=== PATIENT | female | born 1970 | race Caucasian/White ===

== ENCOUNTER → 2017-10-01 10:20 | Outpatient (CLI) | payer OTHER, SELFPAY | PROVIDERS: PCP Family Medicine; Visit Provider Nurse Practitioner Family | DX: M25.50 Pain in unspecified joint (principal) ==

== ENCOUNTER → 2017-10-04 09:53 | Outpatient (CLI) | payer OTHER, SELFPAY ==
[2017-10-04 11:13] LABS: Uric Acid 3.8 mg/dL (2.5-6.2)
[2017-10-06 16:03] LABS: Total Volume: 2900 mL
[2017-10-11 12:58] LABS: Oxalate 24 Hour Urine 39.1
== END ==
PROVIDERS: PCP Family Medicine; Visit Provider Nurse Practitioner Family
DX: M25.50 Pain in unspecified joint (principal)
CPT/HCPCS: 36415; 83945; 84550

== ENCOUNTER → 2017-11-30 15:44 | Outpatient (CLI) | payer OTHER, SELFPAY ==
--- NOTE | 2017-11-30 15:45 | DI.MRI.S_ITS ---
PROCEDURE: MR CERVICAL SPINE WO CON INDICATIONS: NECK PAIN TECHNIQUE: Noncontrast sagittal T1 spin echo and T2 fast spin echo, sagittal STIR, foraminal oblique sagittal T2 fast spin echo, and axial gradient echo or T2 fast spin echo through the cervical spine. COMPARISON: None. FINDINGS: Image quality: Excellent. Alignment and Curvature: Straightening of the normal cervical lordosis. Trace anterolisthesis of C3 on C4, and trace retrolisthesis of C6 on C7. Degenerative endplate spurring. Bone Marrow: Scattered degenerative endplate signal changes Spinal Cord: Visualized spinal cord has normal size and signal. No cerebellar tonsillar herniation. Paraspinous Soft Tissues: No paravertebral masses. Prevertebral soft tissues are normal in thickness. C2-C3: Normal appearance. C3-C4: Bilateral uncovertebral arthropathy and posterior intervening disc osteophyte complex, and bilateral facet disease. No definite canal stenosis. Mild bilateral foraminal narrowing. C4-C5: Bilateral uncovertebral arthropathy and posterior intervening disc osteophyte complex, and bilateral facet disease. Mild canal narrowing with near complete effacement of the anterior thecal sac. Moderate bilateral foraminal stenoses. C5-C6: Bilateral uncovertebral arthropathy and posterior intervening disc osteophyte complex, and bilateral facet disease. Mild canal narrowing. Mild left foraminal stenosis. Severe right foraminal stenosis. C6-C7: Bilateral uncovertebral arthropathy and posterior intervening disc osteophyte complex, and bilateral facet arthropathy. Moderate canal narrowing with effacement of the anterior and posterior sac. Severe left and moderate right foraminal narrowing. C7-T1: Bilateral facet disease. Mild canal stenosis. Moderate left and mild right foraminal narrowing. IMPRESSION: Multilevel cervical disc degeneration as detailed above, with moderate C6-C7 Canal narrowing. Diffuse bilateral foraminal stenoses as above, most pronounced at C4-C5 (bilateral), C5-C6 (right), C6-C7 (left greater than right), and C7-T1 (left). Dictated by: Herman Carson M.D. on 11/30/2017 at 16:40 Approved by: Herman Carson M.D. on 11/30/2017 at 16:48
== END ==
PROVIDERS: PCP Family Medicine; Visit Provider Nurse Practitioner Family
DX: M50.11 Cervical disc disorder with radiculopathy, high cervical region (principal); M48.02 Spinal stenosis, cervical region
CPT/HCPCS: 72141

== ENCOUNTER → 2017-12-20 09:43 | Outpatient (CLI) | payer OTHER, SELFPAY ==
--- NOTE | 2017-12-20 | DI.RAD.S_ITS ---
PROCEDURE: XR LUMBAR SPINE 2-3V INDICATIONS: HIP AND LOW BACK PAIN TECHNIQUE: 3 views of the lumbar spine were acquired. COMPARISON: [facility], CR, L-SPINE 2-3 VIEWS, 01/09/2013, 12:11. [facility], MR, L-SPINE WITHOUT CONTRAST, 02/21/2017, 8:28. FINDINGS: Bones: 5 [id number] vertebrae are present. Mild scoliosis. There is grade 1 anterolisthesis of L4 on L5. No vertebral body compression fractures. No suspicious bony lesions. There is degenerative disc disease in lumbar spine, moderate at L3-L4 and L4-L5, and mild at L2-L3. Moderate to severe facet arthropathy at L4-L5 and L5-S1. Soft tissues: Overlying bowel gas pattern is normal. No suspicious soft tissue calcifications. IMPRESSION: 1. Degenerative disc disease and facet arthropathy in lumbar spine. 2. Mild scoliosis. 3. Grade 1 anterolisthesis of L4 on L5 Dictated by: Yoel Sheppard M.D. on 12/20/2017 at 11:25 Approved by: Yoel Sheppard M.D. on 12/20/2017 at 11:28
--- NOTE | 2017-12-20 | DI.RAD.S_ITS ---
PROCEDURE: XR HIP W PEL IF DONE LT 2V INDICATIONS: LOW BACK PAIN TECHNIQUE: AP pelvis with lateral view(s) of the left hip(s). COMPARISON: None. FINDINGS: Bones: No fractures or dislocations. Pelvic ring appears intact. No suspicious bony lesions. There is mild joint space narrowing in the left hip consist with early joint degeneration. Soft tissues: The visualized bowel gas pattern is normal. No suspicious soft tissue calcifications. IMPRESSION: Mild left hip joint degeneration. Dictated by: Yoel Sheppard M.D. on 12/20/2017 at 11:24 Approved by: Yoel Sheppard M.D. on 12/20/2017 at 11:25
== END ==
PROVIDERS: PCP Family Medicine; Visit Provider Internal Medicine Rheumatology
DX: M51.36 Other intervertebral disc degeneration, lumbar region (principal); M16.12 Unilateral primary osteoarthritis, left hip; M54.5 Low back pain; M25.552 Pain in left hip; M47.816 Spondylosis without myelopathy or radiculopathy, lumbar region; M41.9 Scoliosis, unspecified; M43.16 Spondylolisthesis, lumbar region
CPT/HCPCS: 72100; 73502

== ENCOUNTER 2018-04-05 09:46 | Outpatient (CLI) | payer OTHER, SELFPAY ==
[2018-04-05] VITALS (8 sets, daily range): BP systolic 106–123; BP diastolic 70–86; PULSE 84–101; RESP 16–18; TEMP 36.2; O2SAT 93–99
--- NOTE | 2018-04-05 10:11 | P.PCN_ITS ---
Procedures Date/Time Date of procedure: 04/05/18 Time of procedure: 10:08 General Procedure description: PREOP DIAGNOSIS 1. FACET ARTHROPATHY 2. AXIAL LBP 3. MULTILEVEL DDD POST OP DIAGNOSIS 1. FACET ARTHROPATHY 2. AXIAL LBP 3. MULTILEVEL DDD PROCEDURES 1. FLUORSCOPICALLY GUIDED CONTRAST CONTROLLED FACET JOINT INJECTIONS BILATERAL L4/5, L5/S1 PHYSICIAN: Kwaku Victoria, DO INDICATIONS Ora is referred by Dr. Anderson for treatment of Axial LBP FINDINGS Multilevel Facet Arthropathy with Clinically significant axial LBP DESCRIPTION OF PROCEDURE Fluoroscopically guided, contrast-controlled bilateral L4/5, L5/S1 facet joint injections. Following denial of allergy and review of potential side effects and complications, including, but not necessarily limited to, infection, allergic reaction, local tissue breakdown, stroke, temporary or permanent nerve injury, paralysis, and possible , the patient indicated that the patient understood and agreed to proceed. An informed consent document was signed by the patient, witnessed by a nurse, and placed in the patient's chart. Additionally, other treatment options including medications, modalities, and physical therapy were reviewed with the patient. After review of previous anaesthesic history and IV conscious sedation the patient was deemed safe to proceed with todays procedure with IV conscious sedation as ASA class II designation. Safety time-out was performed to confirm patient ID, procedure to be performed and site of procedure. IV sedation was accomplished with a combination of 5mg was administered by the RN after DO order , titrated to patient comfort during the course of the procedure while the patient remained responsive to all verbal commands In the prone position, following sterile prep and drape of the lumbar region, the posterior aspect of the L4/5, L5/S1 facet joints were identified fluoroscopically. The skin was anesthetized via a 25-gauge 1.5-inch needle with 1% lidocaine solution into the corresponding facet joints. At this point, a 22-gauge 3.5-inch spinal needle was atraumatically introduced and advanced under fluoroscopic guidance into the corresponding facet joints. Following negative aspiration, injections of approximately 0.2-cc of Isovue 200 confirmed interarticular placement without vascular uptake. The identical procedure was then performed at the L4/5, L5/S1 facet joints on the left. Radiological data, including multiple fluoroscopic views of the lumbosacral spine, reveal a spinal needle at the L4/5, L5/S1 facet joints bilaterally. Subsequent views show flow of contrast material both superiorly and inferiorly within the joint space without vascular or intrathecal uptake. At this point, a total of 0.5 cc including a mixture of 0.25cc Marcaine and 0.25cc betamethasone was injected without complication into each of the corresponding facet joints. The patient tolerated the procedure well without signs or symptoms of complications prior to transfer to the recovery area continued monitoring without incident. The patient was then transferred to the recovery area where they were observed for an appropriate period of time after the injection. The patient reported a VAS score of 7 prior to the procedure and a post- procedure VAS of 0. Total Fluoroscopy Time: 20.3 seconds Total Conscious Sedation Time: 24min POST OP INSTRUCTIONS The patient was provided a Pain Log to continue to record their response to the target-specific procedure prior to follow-up visit with their referring physician. Additionally, specific post-injection care instructions and a contact number to our office were provided if concerns arise regarding possible complications associated with the procedure are suspected. Kwaku Victoria DO Complications: none
[2018-04-05] MEDS: MIDAZOLAM 5 MG/5 ML VIAL IV (10:21)
[2018-04-05] MEDS: BUPIVACAINE 0.5% (PF) VIAL 5 ML INJ (10:25)
[2018-04-05] MEDS: IOPAMIDOL 15 ML VIAL 3 ML INJ (10:26)
[2018-04-05] MEDS: LIDOCAINE 1% 20 ML INJ 10 ML INJ (10:26)
[2018-04-05] MEDS: BETAMETHASONE 30 MG/5 ML MDV 12 MG INJ (10:26)
--- NOTE | 2018-04-05 10:30 | PC.NURSE ---
assisting pt off table and transporting to post proc area. pt in stable condition
--- NOTE | 2018-04-05 10:36 | DI.RAD.S_ITS ---
PROCEDURE: PAIN L/SI FACET INJ/BLK 1STL INDICATIONS: SPONDYLOSIS FINDINGS: Fluoroscopic spot filming was performed to verify placement of spinal needles at the L4-L5 and L5-S1 level(s), as labeled on the films. Appropriate location(s) of the needle tip(s) was confirmed by injection of iodinated contrast. Dictated by: Herman Carson M.D. on 04/05/2018 at 11:30 Approved by: Herman Carson M.D. on 04/05/2018 at 11:35
--- NOTE | 2018-04-05 11:26 | PC.NURSE ---
Pt returned from post procedure awake and alert able to move from W/C to chair. Resumed monitoring from Lulu CAMPA.
== END 2018-04-05 11:21 ==
LOC: RAD 09:47
PROVIDERS: PCP Family Medicine; Visit Provider Physical Medicine & Rehabilitation
DX: M47.817 Spondylosis without myelopathy or radiculopathy, lumbosacral region (principal); M47.816 Spondylosis without myelopathy or radiculopathy, lumbar region; M54.5 Low back pain; M51.36 Other intervertebral disc degeneration, lumbar region; M51.37 Other intervertebral disc degeneration, lumbosacral region
CPT/HCPCS: 64493; 64494; 99152; J0702; J2250

== ENCOUNTER → 2018-04-07 14:53 | Outpatient (CLI) | payer OTHER, SELFPAY ==
[2018-04-09 20:14] LABS: Total Volume: 3200 mL
== END ==
PROVIDERS: PCP Family Medicine; Visit Provider Family Medicine
DX: E72.53 Primary hyperoxaluria (principal)
CPT/HCPCS: 83945

== ENCOUNTER 2018-06-13 09:03 | Outpatient (CLI) | payer OTHER, SELFPAY ==
[2018-06-13] VITALS (8 sets, daily range): BP systolic 104–130; BP diastolic 49–76; PULSE 69–86; RESP 16–18; TEMP 36.7; O2SAT 96–100
--- NOTE | 2018-06-13 09:04 | DI.RAD.S_ITS ---
PROCEDURE: PAIN L/S FACET INJ/BLK 1ST MICHEL COMPARISON: None. INDICATIONS: SPONDYLOSIS FINDINGS: Intraoperative fluoroscopic guidance provided for bilateral L4, L5, and S1 medial nerve branch blocks. Needle seen at the appropriate locations bilaterally, confirmed with injection of small amounts of contrast. IMPRESSION: Intraoperative fluoroscopy provided for bilateral L4-S1 medial nerve branch blocks. Dictated by: Velma Chávez M.D. on 06/13/2018 at 12:50 Approved by: Velma Chávez M.D. on 06/13/2018 at 12:50
[2018-06-13] MEDS: MIDAZOLAM 5 MG/5 ML VIAL IV (09:48)
[2018-06-13] MEDS: fentaNYL 100 MCG/2 ML INJ 50 MCG IV (09:49)
[2018-06-13] MEDS: BETAMETHASONE 30 MG/5 ML MDV 12 MG INJ (09:58)
[2018-06-13] MEDS: IOPAMIDOL 15 ML VIAL 3 ML INJ (09:58)
[2018-06-13] MEDS: BUPIVACAINE 0.5% (PF) VIAL 2 ML INJ (09:59)
[2018-06-13] MEDS: LIDOCAINE 1% 20 ML INJ 10 ML INJ (09:59)
--- NOTE | 2018-06-13 10:03 | PC.NURSE ---
ASSISTING PT OFF TABLE AND TRANSPORTING TO POST PROC AREA IN STABLE CONDITION
--- NOTE | 2018-06-13 10:08 | PM.PROC.1 ---
Procedures Date/Time Date of procedure: 06/13/18 Time of procedure: 10:08 General Procedure description: Procedure description: 1. FACET ARTHROPATHY PROCEDURES: 1. BILATERAL- L4, L5 and S1 MB BLOCKS PHYSICIAN: Kwaku Victoria DO INDICATIONS Ora is referred by Dr. Anderson for treatment of Bilateral Axial LBP. DESCRIPTION OF PROCEDURE Fluoroscopically guided, contrast-controlled bilateral L4, L5 and S1 medial branch blocks with 0.5cc of 0.5% Marcaine. Following denial of allergy and review of potential side effects and complications, including, but not necessarily limited to, infection, allergic reaction, local tissue breakdown, nerve injury, paralysis, stroke and possible , the patient indicated that the patient understood and agreed to proceed. An informed consent document was signed by the patient, witnessed by a nurse, and placed in the patient's chart. After review of previous anaesthesic history and IV conscious sedation the patient was deemed safe to proceed with todays procedure with IV conscious sedation as ASA class II designation. Safety time-out was performed to confirm patient ID, procedure to be performed and site of procedure. IV sedation was accomplished with a combination of 3mg of Versed and 50mcg of Fentanyl was administered by the RN after DO order, titrated to patient comfort during the course of the procedure while the patient remained responsive to all verbal commands In the prone position, following sterile prep and drape of the lumbar region, the right L4, L5 and S1 anatomical location of the medial branch of the dorsal ramus was identified fluoroscopically. Subsequently an anesthetic skin wheal using 1% lidocaine solution was initiated at each of the anatomical spots. Subsequently then a 22-gauge 3.5-inch spinal needle was atraumatically introduced and advanced under fluoroscopic guidance at each of the corresponding sites at the right L4, L5 and S1 MB. After negative aspiration, 0.2 cc of Isovue 200 was injected, confirming placement without vascular or intrathecal uptake. Subsequently then 0.5 cc of 0.5% Marcaine solution was injected at each of the corresponding sites at the right L4, L5 and S1 medial branch locations. The identical procedure was replicated on the left. The patient tolerated the procedure well without signs or symptoms of complications prior to transfer to the recovery area continued monitoring without incident. Post-procedure, the patient was monitored initiating provocative activities to measure the amount of relief from block of the facetogenic pain. The patient reported a VAS of 7 prior to the procedure and a post-procedure VAS of 1. It has been a pleasure to assist in the diagnostic and therapeutic care of your patient. Total Fluoroscopy Time: 24.8 seconds Total Conscious Sedation Time: 24min POST OP INSTRUCTIONS The patient was provided with a Pain Log to complete over the next several hours and subsequent days prior to the patient's follow up with the ordering physician. If the patient has weight control engineer relief to the solution applied, then they may be a candidate for medial branch rhizotomy. The patient is aware, was provided, once again, with a Pain Log and will follow up with the referring physician for review and clinical correlation Kwaku Victoria DO Complications: none
--- NOTE | 2018-06-13 10:35 | PC.NURSE ---
Pt returned awake and alert from post procedure via wheelchair, and able to move from w/c to chair without difficulty. Resumed monitoring from Lulu CAM[facility].
--- NOTE | 2018-06-14 12:56 | PC.NURSE ---
FOLLOW UP CALL MADE, STATES THAT HER USUAL PAIN WHEN SHE GETS OUT OF BED IN THE AM WAS NOT THERE THIS MORNING. DENIES QUESTIONS/CONCERNS.
== END 2018-06-13 10:46 ==
LOC: RAD 09:04
PROVIDERS: PCP Family Medicine; Visit Provider Physical Medicine & Rehabilitation
DX: M47.817 Spondylosis without myelopathy or radiculopathy, lumbosacral region (principal); M43.16 Spondylolisthesis, lumbar region
CPT/HCPCS: 64493; 64494; 99152; J0702; J1100; J2250; J3010

== ENCOUNTER 2018-09-12 07:28 | Outpatient (CLI) | payer OTHER, SELFPAY ==
[2018-09-12] VITALS (10 sets, daily range): BP systolic 103–114; BP diastolic 55–75; PULSE 76–89; RESP 16; TEMP 36.2; O2SAT 98–100
--- NOTE | 2018-09-12 07:30 | DI.RAD.S_ITS ---
PROCEDURE: PAIN L/S MED/LAT N RFA BILAT INDICATIONS: SPONDYLOSIS FINDINGS: Fluoroscopic spot filming was performed to verify placement of spinal needles as labeled on the films. Appropriate location(s) of the needle tip(s) was confirmed by injection of iodinated contrast. IMPRESSION: Fluoroscopy for pain management. Dictated by: Yoel Sheppard M.D. on 09/12/2018 at 11:53 Approved by: Yoel Sheppard M.D. on 09/12/2018 at 11:53
[2018-09-12] MEDS: MIDAZOLAM 5 MG/5 ML VIAL IV (08:28)
[2018-09-12] MEDS: fentaNYL 100 MCG/2 ML INJ 50 MCG IV (08:29)
[2018-09-12] MEDS: BUPIVACAINE 0.5% (PF) VIAL 2 ML INJ (08:52)
[2018-09-12] MEDS: LIDOCAINE 1% 20 ML INJ 10 ML INJ (08:53)
[2018-09-12] MEDS: BETAMETHASONE 30 MG/5 ML MDV 12 MG INJ (08:53)
--- NOTE | 2018-09-12 09:17 | P.PCN_ITS ---
Procedures Date/Time Date of procedure: 09/12/18 Time of procedure: 09:16 General Procedure description: PREOP DIAGNOSIS 1. RECALCITRANT FACET ARTHROPATHY, POST OP DIAGNOSIS 1. RECALCITRANT FACET ARTHROPATHY PROCEDURES 1. BILATERAL L4 AND L5 MEDIAL BRANCH RADIOFREQUENCY NEUROTOMY AND S1 DORSAL RAMUS BRANCH RADIOFREQUENCY NEUROTOMY, PHYSICIAN: Kwaku Victoria DO INDICATIONS: Ora is referred by for treatment of facet arthropathy. DESCRIPTION OF PROCEDURE Right L4 and L5 medial branch radiofrequency neurotomy and right S1 dorsal ramus radiofrequency neurotomy under fluoroscopy with conscious sedation. The patient is well known to this clinic having undergone previous facet injections with good but temporary relief. The patient has experienced appropriate, concordant relief with previous facet and median branch blocks but the patient's pain has been recalcitrant to further conservative measures. Therefore, based upon the patient's relief and persistent symptoms, the patient is considered an appropriate candidate for facet rhizotomy. All of the patient's questions regarding the risks versus benefits of the procedure, including, but not limited to, bleeding, infection, temporary as well as lasting nerve injury, paralysis, stroke, and , as well treatment alternatives were answered to satisfaction. After obtaining informed consent, denial of pertinent drug allergies, as well as being made aware of the potential risks of bleeding, infection, spinal cord trauma, paralysis, temporary and permanent nerve damage, seizure, stroke, and possible , the patient was brought to the fluoroscopy suite and positioned prone on the fluoroscopy table. The lumbar region was prepped with Betadine and covered with a fenestrated drape in the usual sterile fashion. Appropriate monitors applied including pulse oximeter, pulse, and blood pressure for regular monitoring throughout the procedure. After review of previous anaesthesic history and IV conscious sedation the patient was deemed safe to proceed with todays procedure with IV conscious sedation as ASA class II designation. Safety time-out was performed to confirm patient ID, procedure to be performed and site of procedure. IV sedation was accomplished with a combination of 3mg of Versed and 50mcg of Fentanyl administered by the RN after DO order, titrated to patient comfort during the course of the procedure while the patient remained responsive to all verbal commands. After local infiltration using 1% lidocaine, under fluoroscopic guidance, a 10- cm RF insulated needle with a 10-mm active tip was positioned parallel to the j unction of the right sacral ala and the superior articulating process where the S1 dorsal ramus resides. Needle placement was confirmed with sensory stimulation at 50 Hz, with motor stimulation of .5v on the right which produced local stimulation without radicular component. The stimulation was then increased to 1.5v with, once again, only local multifidus stimulation without radicular component. This was then followed by two discreet lesions performed at 80 degrees Celsius for 90 seconds each. The needle was then removed and the identical procedure was performed along the length of the right L5 medial branch with motor stimulation at .7v on the right. The identical procedure was once again performed along the length of the right L4 medial branch with motor stimulation of .5v on the right. The identical procedure was repeated on the left. The patient tolerated the procedure well without signs or symptoms of complications prior to transfer to the recovery area continued monitoring without incident. The patient was then transferred to the recovery area where they were observed for an appropriate period of time after the injection. The patient reported a VAS score of 9 prior to the procedure and a post-procedure VAS of 0. Total Fluoroscopy Time: 22.7 seconds Total Conscious Sedation Time: 34min POST OP INSTRUCTIONS The patient was provided a Pain Log to continue to record the patient's response to the target-specific procedure prior to the patient's follow-up visit with the referring physician. Additionally, specific post-injection care instructions and a contact number to our office were provided if concerns arise regarding possible complications associated with the procedure are suspected. Kwaku Victoria DO Complications: none
--- NOTE | 2018-09-12 09:22 | PC.NURSE ---
Pt returned from post procedure awake and alert. Able to move from W/C to chair with standby assist. Resumed monitoring from Lulu CAMPA.
== END 2018-09-12 09:41 ==
LOC: RAD 07:29
PROVIDERS: PCP Family Medicine; Visit Provider Physical Medicine & Rehabilitation
DX: M47.816 Spondylosis without myelopathy or radiculopathy, lumbar region (principal); M47.817 Spondylosis without myelopathy or radiculopathy, lumbosacral region
CPT/HCPCS: 64635; 64636; 99152; 99153; J0702; J2250; J3010

== ENCOUNTER → 2018-09-18 07:47 | Outpatient (CLI) | payer OTHER, SELFPAY ==
[2018-09-18 08:25] LABS: Add Manual Diff / Slide Review NO; Basophils Absolute Auto 100 /uL (0-100); Basophils Percent Auto 0.6 % (0-2); Eosinophils Absolute Auto 200 /uL (0-450); Eosinophils Percent Auto 2.4 % (2-4); Hematocrit 41.9 % (36-46); Hemoglobin 13.9 g/dL (12.0-16.0); Lymphocytes Absolute Auto 2500 /uL (1100-4500); Lymphocytes Percent Auto 28.8 % (25-40); Mean Corpuscular HGB Conc 33.3 % (30-36); Mean Corpuscular Volume 96.3 fL (80-100); Monocytes Absolute Auto 600 /uL (0-900); Monocytes Percent Auto 6.8 % (3-14); Neutrophils Absolute Auto 5400 /uL (1500-7000); Neutrophils Percent Auto 61.4 % (50-75); Platelet Count 385 X10^3/uL (150-400); Red Blood Cell Count 4.35 X10^6/uL (4.0-5.2); Red Cell Distribution Width 13.3 % (11.6-14.8); White Blood Cell Count 8.8 X10^3/uL (4.5-11.0)
[2018-09-18 08:46] LABS: Alanine Aminotransferase 20 IU/L (9-52); Albumin 4.3 g/dL (3.5-5.0); Albumin Globulin Ratio 1.5 (1.0-2.8); Alkaline Phosphatase 43 U/L (38-126); Aspartate Aminotransferase 24 IU/L (14-36); Bilirubin Total 0.2 mg/dL (0.2-1.3); Blood Urea Nitrogen 16 mg/dL (7-17); Calcium 9.4 mg/dL (8.4-10.2); Carbon Dioxide 30 mmol/L (22-32); Chloride 99 mmol/L (98-107); Cholesterol 187 mg/dL (140-199); Estimated Glomerular Filt Rate > 60.0 mL/min (>60); Globulin 2.9 g/dL (1.7-4.1); Glucose 88 mg/dL (70-100); HDL Cholesterol 66 mg/dL (40-60); HEMOLYSIS < 15 (0-50); LDL Cholesterol Calculated 96 mg/dL (<100); Potassium 4.2 mmol/L (3.4-5.1); Sodium 137 mmol/L (137-145); Total Protein 7.2 g/dL (6.3-8.2); Triglycerides 125 mg/dL (35-150)
== END ==
PROVIDERS: PCP Family Medicine; Visit Provider Family Medicine
DX: Z00.00 Encounter for general adult medical examination without abnormal findings (principal); Z13.220 Encounter for screening for lipoid disorders
CPT/HCPCS: 36415; 80053; 80061; 85025

== ENCOUNTER 2018-11-09 08:53 | Outpatient (CLI) | payer OTHER, SELFPAY ==
[2018-11-09] VITALS (7 sets, daily range): BP systolic 88–111; BP diastolic 65–84; PULSE 68–81; RESP 16; TEMP 36.7; O2SAT 98–100
--- NOTE | 2018-11-09 08:54 | DI.RAD.S_ITS ---
PROCEDURE: PAIN SI JOINT INJECTION INDICATIONS: SACROCOCCYGEAL DISORDER FINDINGS: Fluoroscopic spot filming was performed to verify placement of spinal needles at the left inferior sacroiliac joint level(s), as labeled on the films. Appropriate location(s) of the needle tip(s) was confirmed by injection of iodinated contrast. IMPRESSION: Successful needle tip localization at the inferior third of the left sacroiliac joint for intra-articular steroid injection. Dictated by: Emir Connell M.D. on 11/09/2018 at 10:47 Approved by: Emir Connell M.D. on 11/09/2018 at 10:47
[2018-11-09] MEDS: MIDAZOLAM 5 MG/5 ML VIAL IV (09:34)
[2018-11-09] MEDS: fentaNYL 100 MCG/2 ML INJ 50 MCG IV (09:34)
--- NOTE | 2018-11-09 09:44 | PC.NURSE ---
Pt tolerated procedure well. Able to get off table with standby assist. Transferred pt via wheelchair to pre procedure room for continued monitoring with Lulu CAMPA.
--- NOTE | 2018-11-09 09:50 | PM.PROC.1 ---
Procedures Date/Time Date of procedure: 11/09/18 Time of procedure: 09:50 General Procedure description: PREOP Dx: Sacroiliac joint pain/DJD POST OP DX: Sacroiliac Joint Pain/DJD Procedures: Fluoroscopic guided contrast controlled left sacroiliac joint injection Physician: Kwaku Victoria D.O. Indications: Ora is referred by Dr. Anderson for treatment of left sacroiliac joint DJD Description of procedure Fluoroscopic guided, contrast controlled left sacroiliac joint injection Following review of allergies and review of potential side effects and complications, including, but not necessarily limited to, infection, allergic reaction, local tissue breakdown, temporary as well as permanent nerve injury, paralysis, stroke and possible , the patient indicated that they understood and agreed to proceed. An informed consent was signed by the patient, witnessed by a nurse, and placed in the patient's chart. Additionally, other treatment options including modalities, medications, and physical therapy were reviewed with the patient. After review of previous anaesthesic history and IV conscious sedation the patient was deemed safe to proceed with todays procedure with IV conscious sedation as ASA class II designation. Safety time-out was performed to confirm patient ID, procedure to be performed and site of procedure. IV sedation was accomplished with a combination of 2mg of Versed and 50mcg of Fentanyl administered by the RN after DO order, titrated to patient comfort during the course of the procedure while the patient remained responsive to all verbal commands. In the prone position following sterile prep and drape of the pelvic region, the hyper lucency on in the inferior aspect of the left sacroiliac joint was identified fluoroscopically the skin was anesthetized be a 25 gauge 1 eventual with approximately 2 cc of 1% lidocaine solution. At this point, a 22 gauge 3 in spinal needle was atraumatically introduced and advanced under fluoroscopic guidance into the inferior aspect of the left sacroiliac joint. Following negative aspiration, approximately 0.3 cc of Isovue-300 was injected confirming intra-articular placement without vascular uptake. Radiographic data, including multiple fluoroscopic views of the pelvis, reveals a spinal needle in the left sacroiliac joint hyper lucent zone. Subsequent view show flow contrast tear superiorly and inferiorly within the joint capsule without vascular intrathecal uptake. At this point a total of 1 cc or 0 8 of 0.5% Marcaine was combined with 1 cc of 6 mg of betamethasone was injected without incident. The patient tolerated the procedure well without signs or symptoms of complications prior to transfer to the recovery area for further monitoring. The patient was then transferred to the recovery area with a bur observed for an appropriate time after the injection. The patient reverted a vas score of 7 prior to the procedure and postprocedure vas of 1. Total fluoroscopy time: 22.7 sec Total conscious sedation time: 24 min Postop instructions The patient was provided with a pain like to continue to record the patient's response to the target specific procedure prior to the patient's follow-up visit with the referring physician. Additionally, specific post injection care instructions and a contact number to our office were provided if concerns arise regarding the possible complications associated with procedure are suspected. Kwaku Victoria D.O. Complications: none
[2018-11-09] MEDS: IOPAMIDOL 15 ML VIAL 3 ML INJ (09:59)
[2018-11-09] MEDS: BETAMETHASONE 30 MG/5 ML MDV 12 MG INJ (10:00)
[2018-11-09] MEDS: BUPIVACAINE 0.25% (PF) VIAL 2 ML INJ (10:06)
== END 2018-11-09 10:18 | disposition home or self-care (01) ==
LOC: RAD 08:54
PROVIDERS: PCP Family Medicine; Visit Provider Physical Medicine & Rehabilitation
DX: M53.3 Sacrococcygeal disorders, not elsewhere classified (principal); M19.90 Unspecified osteoarthritis, unspecified site
CPT/HCPCS: 27096; 99152; J0702; J2250; J3010

== ENCOUNTER → 2019-01-01 16:20 | Outpatient (CLI) | payer OTHER, SELFPAY | PROVIDERS: PCP Family Medicine; Visit Provider Family Medicine | DX: K50.90 Crohn's disease, unspecified, without complications (principal) | CPT/HCPCS: 83520 ==

== ENCOUNTER → 2019-03-15 19:02 | Outpatient (CLI) | payer OTHER, SELFPAY ==
--- NOTE | 2019-03-15 19:04 | DI.MRI.S_ITS ---
PROCEDURE: MR LUMBAR SPINE WO CON INDICATIONS: Low back pain TECHNIQUE: Noncontrast sagittal T1 spin echo and T2 fast echo, sagittal STIR, axial T1 and T2 fast spin echo through the lumbar spine. In cases with scoliosis, additional coronal T2 fast spin echo may be performed. COMPARISON: None. FINDINGS: Image quality: Excellent. Alignment and Curvature: There is mild L4-L5 anterolisthesis secondary to facet hypertrophy. Bone Marrow: Mild reactive endplate change is noted adjacent to the L4-L5 disc. No acute vertebral body compression fractures. Spinal Cord: Conus medullaris terminates at the L1 level. Visualized cord demonstrates normal signal and size. Paraspinous Soft Tissues: No paravertebral masses. L1-L2: Loss of the signal. Mild, diffuse disc bulge. Mild narrowing of the central canal. No neural foraminal narrowing. No neural compression. L2-L3: Loss of the signal. Mild, diffuse disc bulge. Mild narrowing of the central canal. No neural foraminal narrowing. No neural compression. L3-L4: Loss of the signal. Mild diffuse disc bulge. Mild bilateral facet hypertrophy. Mild to moderate narrowing of the central canal. Mild bilateral neural foraminal narrowing. No neural compression. L4-L5: Loss of disc signal and height. Mild, diffuse disc bulge. Severe bilateral facet hypertrophy. Severe narrowing of the central canal with compression of the nerve roots of the cauda equina. Severe bilateral neural foraminal narrowing with compression of the exiting L4 nerve roots. L5-S1: Loss of disc signal. Minimal, diffuse disc bulge. Mild bilateral facet hypertrophy. No central stenosis. No neural foraminal narrowing. No neural compression. IMPRESSION: 1. Grade 1 L4-L5 degenerative spondylolisthesis. 2. Multilevel degenerative disc disease. 3. Multilevel facet arthropathy. 4. Severe L4-L5 central canal narrowing. Mild to moderate L3-L4 central canal narrowing. Mild L1-L2 and L2-L3 central canal narrowing. 5. Severe bilateral L4-L5 neural foraminal narrowing. Mild bilateral L3-L4 neural foraminal narrowing. 6. Compression of the nerve roots of the cauda equina at the level of the L4-L5 disc secondary to central canal stenosis. 7. Compression of the exiting bilateral L4 nerve roots secondary to bilateral L4-L5 neural foraminal narrowing. Dictated by: Inessa Killian MD, PhD on 03/16/2019 at 9:49 Approved by: Inessa Killian MD, PhD on 03/16/2019 at 9:54
== END ==
PROVIDERS: PCP Family Medicine; Visit Provider Registered Nurse
DX: M54.5 Low back pain (principal); M47.817 Spondylosis without myelopathy or radiculopathy, lumbosacral region; M47.816 Spondylosis without myelopathy or radiculopathy, lumbar region; M51.36 Other intervertebral disc degeneration, lumbar region; M48.061 Spinal stenosis, lumbar region without neurogenic claudication; M43.16 Spondylolisthesis, lumbar region
CPT/HCPCS: 72148

== ENCOUNTER 2019-04-09 10:15 | Outpatient (RCR) | payer OTHER, SELFPAY ==
--- NOTE | 2018-12-19 17:08 | PT.OIE ---
Current Diagnoses Cervicalgia (12/19/18) Low back pain (12/19/18) Past Medical History (Last Reviewed 11/23/18 @ 16:04 by JUAN M Cadet) Anemia (Resolved 1996) Anxiety (Chronic) Arm fracture (Resolved 1976) Chicken pox (Resolved 1975) Chronic back pain (Chronic ~2006) Colon polyps (Resolved) Crohn's colitis (Chronic 1995) Depression (Chronic) Fecal incontinence (Resolved 1997) Fibroids (Chronic 2009) GI bleeding (Resolved 1995) Hemorrhoids (Resolved 1995) IBS (irritable bowel syndrome) (Chronic 1995) Joint ache (Chronic 2013) Osteoarthritis (Chronic 2006) Polymyalgia rheumatica (Chronic) Substance abuse (Chronic ~2001) Past Surgical History (Last Reviewed 11/23/18 @ 16:04 by JUAN M Cadet) Anesthesia (Resolved) History of breast augmentation (Resolved 06/07/11) History of surgery (Resolved 1997) Status post delivery (Resolved 08/25/09) Status post colonoscopy (Resolved 2011) Visit Care Team Role Provider Type Mary Anderson DO Attending Provider Physician Primary Care Provider Specialty: [facility] Address: [address] [place] [address], [address], [employer] Email: [email or web address] Physical Therapy Initial Evaluation PT-OP-A Visit Information Start: 12/13/18 09:15 Freq: Status: Active Protocol: Document 12/13/18 10:00 REPLACED BY [facility] (Rec: 12/18/18 12:07 REPLACED BY [facility] [email or web address]) Out-Patient Physical Therapy Visit Information Visit Information Visit Type Initial Evaluation Visit Note 48 year old female with LBP and sacral pain with radicular symptoms that began in 2006 Visit Start Time 10:00 Visit Stop Time 10:45 Total Visit Minutes 45 Visit Number 1 Evaluation Information Evaluation Date 12/13/18 PT-OP-B Current Condition Start: 12/13/18 09:15 Freq: Status: Active Protocol: Document 12/13/18 10:00 [facility] (Rec: 12/18/18 15:04 [facility] [email or web address]) Current Condition History of Current Condition Onset Date 2006 Current Complaints sharp nerve pain into her buttocks, pain with walking and rolling in bed History of Current Condition Ora describes low back pain that began for her in 2006. She has had many trials of pain control including steriod injections, a nerve block and a nerve ablation. Her pain is moderate and constant rated 5/10. She exercises daily at the gym both cardio and weight lifting and she feels this keeps her going. Pain prevents her from walking long distances and from sitting more than 1 hour. She has a history of disc injury in her low back and Chrohn's disease Prior Treatments and Tests nerve blocks, nerve ablation, steriod injections into the SI joint and lumbar spine X-ray reveals grade 1 anterolesthesis L4-5 and degenerative joint disease, mild scoliosis Treatment Goals Patient/Caregiver Goals Treatment goals include pain management ideas and aquatic therapy as a means to exercise Current Functional Impairments (Reported) Functional Limitations- ADL's pain prevents Ora from lifting heavy weights off of the floor, walking long distances, sitting more than a hour, standing more than a hour Functional Limitations- Recreation/ has not been able to run due Hobbies to pain PT-OP-C Subjective Start: 12/13/18 09:15 Freq: Status: Active Protocol: Document 12/13/18 10:00 [facility] (Rec: 12/18/18 15:04 REPLACED BY [facility] [email or web address]) Patient Questionnaires Oswestry Low Back Index Oswestry Impairment 1 to 19% Impaired (Score 1-19) OP-PT Pain Assessment Location Right Upper Neck Pain Location Details right upper trapeizus Intensity 3 Scale Used Numeric (1 - 10) bilateral gluteal pain Pain Location Details bilateral gluteals and sacral pain Intensity 5 Scale Used Numeric (1 - 10) Description Aching,Radiating,Shooting Frequency Intermittent Pain Aggravating Factors Standing,Sitting PT-OP-F Manual Assessment Start: 12/13/18 09:15 Freq: Status: Active Protocol: Document 12/13/18 10:00 [facility] (Rec: 12/18/18 15:04 [facility] [email or web address]) Manual Assessments Soft Tissue Assessment Soft Tissue Mobility Assessment right>left lumbar paraspinal visable muscle guarding and restrictions PT-OP-J Posture/Palpation/Skin Start: 12/13/18 09:15 Freq: Status: Active Protocol: Document 12/13/18 10:00 [facility] (Rec: 12/18/18 15:04 [facility] [email or web address]) Posture Evaluation Comments Posture Comments pt stands with a right lateral shift and slight scoliosis with curve to the right Palpation Assessment Location One Palpation Location right parapsinals Palpation Findings Soft Tissue Tightness,Spasm, Muscle Guarding,Tenderness PT-OP-K Range of Motion Start: 12/13/18 09:15 Freq: Status: Active Protocol: Document 12/13/18 10:00 [facility] (Rec: 12/18/18 15:04 [facility] [email or web address]) Lumbar Spine Range of Motion Lumbar Spine Active Testing Position Standing Flexion 30 Lateral Flexion Left 15 Lateral Flexion Right 15 ROM Limitations Soft Tissue Tightness,Pain Comments flexion creates increased nerve pain into the sacrum PT-OP-L Special Tests Start: 12/13/18 09:15 Freq: Status: Active Protocol: Document 12/13/18 10:00 [facility] (Rec: 12/18/18 15:04 [facility] [email or web address]) Special Tests Lumbar Spine Special Tests Straight Leg Raise Test Results positive Comments end range only it recreates nerve pain bilaterally PT-OP-M Strength Start: 12/13/18 09:15 Freq: Status: Active Protocol: Document 12/13/18 10:00 [facility] (Rec: 12/18/18 15:04 [facility] [email or web address]) Trunk Strength Trunk Manual Muscle Testing Core Stabilization decreased activation of the transverse abdominal muscles and Ora reports she often feels as if those muscles have gone to sleep Hip Strength Hip Manual Muscle Testing Right Reason Not Measured WFL Knee Strength Knee Manual Muscle Testing Right Reason Not Measured WFL Ankle/Foot Strength Ankle and Foot Manual Muscle Testing Right Reason Not Measured WFL PT-OP-Q Treatments Start: 12/13/18 09:15 Freq: Status: Active Protocol: Document 12/13/18 10:00 [facility] (Rec: 12/18/18 15:04 [facility] [email or web address]) Therapeutic Exercises Other Exercises 3 Other Exercise Name right standing lateral shift correction at wall Reps/Minutes 10 reps hold 5 seconds 2 Other Exercise Name TA facilitation with a march Side bilateral 1 Other Exercise Name quadruped sidebends Side bilateral Reps/Minutes 10-15 reps Manual Therapy Treatment Soft Tissue Mobilization 1 Body Location right parapsinals and quadratus lumborum Mobilization Type Myofascial Release Intensity/Depth Moderate Body Position Sidelying Comments pt instructed to use a pillow under her left side for sidelying sleeping at home PT-OP-T Assessment and Plan Start: 12/13/18 09:15 Freq: Status: Active Protocol: Document 12/13/18 10:00 [facility] (Rec: 12/18/18 15:04 REPLACED BY [facility] [email or web address]) Physical Therapy Assessment Rehab Potential Rehabilitation Potential Good Impairments Impairments Activity Tolerance,Functional Activities,Pain,Posture,ROM, Soft Tissue Mobility,Strength Goals Four Impairment increased pain with running or hiking activities Assisted Goal (LTG) Carisa is educated in aquatic therapy running program that she is able to tolerate without increased pain symptoms LTG Duration 8 weeks Three Impairment Restricted lumbar spine ROM especially flexion which recreates pain Short Term Goal (STG) Carisa is able to perform lisha pose and cat cow without any increase in pain symptoms into the sacrum and buttocks STG Duration 4-6 weeks Band Manager Goal (LTG) Improve standing lumbar flexion to WFL and without a reproduction in pain symptoms Two Impairment pain rated 5/10 bilateral sacral and buttocks region Assisted Goal (LTG) Carisa reports a overall reduction in pain in the sacral and buttocks region LTG Duration 8 weeks One Impairment right lateral shift in standing with parapsinal hypertrophy Short Term Goal (STG) Carisa is educated in both prone positioning as well as a lateral shift correction exercise STG Duration 2-3 weeks Assisted Goal (LTG) Carisa presents with a reduced lateral shift in standing LTG Duration 8 weeks Assessment Summary Assessment Carisa is a active 48 year old female who presents to PT today with chronic back pain that began in 2006. She has underwent steriod injections, nerve blocks, nerve ablations but is still experiencing pain . She exercises at the gym regularly doing both cardio and light weights. She notes this helps her loosen up but pain stays with her throughout the day. Her chief complaint of pain is on bilateral side of her sacrum and into her buttocks bilaterally. She is interested in our aquatic therapy pool to help with pain control and allow her to continue with cardio exercise. With examination today Carisa is standing in a right lateral shift with visable muscle guarding of the right>left lumbar paraspinals. She is very restricted in standing forward bend and this increases pain into the gluteals. She does have a leg length discrepency in supine with right leg being shorter and tighter in the anterior hip and quad. I started her with some exercises to help stretch her lumbar paraspinals and we worked on core facilitation today. She may benefit from both a land based PT program as well as aquatic therapy. Physical Therapy Plan Frequency and Duration Frequency of Treatment 2x/Week Duration of Treatment 8 Plan of Care Start Date 12/13/18 Plan of Care End Date 01/24/19 Therapeutic Interventions Therapeutic Interventions Aquatic Therapy,Home Exercise Program,Manual Therapy, Neuromuscular Re-education, Patient/Caregiver Education, Self-Care/Home Management,Soft Tissue Mobilization, Therapeutic Exercises Next Visit Focus/Plan Next Note Type Treatment Note Next Visit Plan work on releasing the tightness in the paraspinals and decreasing the lateral shift in standing, try prone positioning next visit
--- NOTE | 2018-12-19 17:16 | PT.OTN ---
Current Diagnoses Cervicalgia (12/19/18) Low back pain (12/19/18) Physical Therapy Treatment Note PT-OP-A Visit Information Start: 12/13/18 09:15 Freq: Status: Active Protocol: Document 12/19/18 17:12 [facility] (Rec: 12/19/18 17:16 [facility] [email or web address]) Out-Patient Physical Therapy Visit Information Visit Information Visit Type Treatment Note Visit Start Time 11:15 Visit Stop Time 12:00 Total Visit Minutes 45 Visit Number 2 Evaluation Information Evaluation Date 12/13/18 PT-OP-B Current Condition Start: 12/13/18 09:15 Freq: Status: Active Protocol: Document 12/13/18 10:00 [facility] (Rec: 12/18/18 15:04 [facility] [email or web address]) Current Condition History of Current Condition Onset Date 2006 Current Complaints sharp nerve pain into her buttocks, pain with walking and rolling in bed History of Current Condition Carisa describes low back pain that began for her in 2006. She has had many trials of pain control including steriod injections, a nerve block and a nerve ablation. Her pain is moderate and constant rated 5/10. She exercises daily at the gym both cardio and weight lifting and she feels this keeps her going. Pain prevents her from walking long distances andfrom sitting more than 1 hour. She has a history of disc injury in her low back and Chron's disease Prior Treatments and Tests nerve blocks, nerve ablation, steriod injections into the SI joint and lumbar spine X-ray reveals grade 1 anterolesthesis L4-5 and degenerative joint disease, mild scolosis Treatment Goals Patient/Caregiver Goals Treatment goals include pain management ideas and aquatic therapy as a means to exercise Current Functional Impairments (Reported) Functional Limitations- ADL's pain prevents Carisa from lifting heavy weights off of the floor, walking long distances, sitting more than a hour, standing more than a hour Functional Limitations- Recreation/ has not been able to run due Hobbies to pain PT-OP-C Subjective Start: 12/13/18 09:15 Freq: Status: Active Protocol: Document 12/19/18 17:12 [facility] (Rec: 12/19/18 17:16 [facility] [email or web address]) OP-PT Subjective Patient Comments Patient Comments Carisa reports she has been trying to do the standing lateral shift exercise. No change in her symptoms PT-OP-F Manual Assessment Start: 12/13/18 09:15 Freq: Status: Active Protocol: Document 12/13/18 10:00 [facility] (Rec: 12/18/18 15:04 [facility] [email or web address]) Manual Assessments Soft Tissue Assessment Soft Tissue Mobility Assessment right>left lumbar paraspinal visable muscle guarding and restrictions PT-OP-J Posture/Palpation/Skin Start: 12/13/18 09:15 Freq: Status: Active Protocol: Document 12/13/18 10:00 [facility] (Rec: 12/18/18 15:04 [facility] [email or web address]) Posture Evaluation Comments Posture Comments pt stands with a right lateral shift and slight scoliosis with curve to the right Palpation Assessment Location One Palpation Location right parapsinals Palpation Findings Soft Tissue Tightness,Spasm, Muscle Guarding,Tenderness PT-OP-K Range of Motion Start: 12/13/18 09:15 Freq: Status: Active Protocol: Document 12/13/18 10:00 [facility] (Rec: 12/18/18 15:04 [facility] [email or web address]) Lumbar Spine Range of Motion Lumbar Spine Active Testing Position Standing Flexion 30 Lateral Flexion Left 15 Lateral Flexion Right 15 ROM Limitations Soft Tissue Tightness,Pain Comments flexion creates increased nerve pain into the sacrum PT-OP-L Special Tests Start: 12/13/18 09:15 Freq: Status: Active Protocol: Document 12/13/18 10:00 [facility] (Rec: 12/18/18 15:04 [facility] [email or web address]) Special Tests Lumbar Spine Special Tests Straight Leg Raise Test Results positive Comments end range only it recreates nerve pain bilaterally PT-OP-M Strength Start: 12/13/18 09:15 Freq: Status: Active Protocol: Document 12/13/18 10:00 [facility] (Rec: 12/18/18 15:04 [facility] [email or web address]) Trunk Strength Trunk Manual Muscle Testing Core Stabilization decreased activation of the transverse abdominal muscles and Ora reports she often feels as if those muscels have gone to sleep Hip Strength Hip Manual Muscle Testing Right Reason Not Measured WFL Knee Strength Knee Manual Muscle Testing Right Reason Not Measured WFL Ankle/Foot Strength Ankle and Foot Manual Muscle Testing Right Reason Not Measured WFL PT-OP-Q Treatments Start: 12/13/18 09:15 Freq: Status: Active Protocol: Document 12/19/18 17:12 [facility] (Rec: 12/19/18 17:16 [facility] [email or web address]) Therapeutic Exercises Supine Exercises 1 Supine Exercise Name piriformis stretch Reps/Minutes 2 reps x 1 min Prone Exercises 1 Prone Exercise Name cobra stretch Other Exercises 4 Other Exercise Name quadraped thoracic rotations Reps/Minutes 5 reps each side 3 Other Exercise Name right standing lateral shift correction at wall Reps/Minutes 10 reps hold 5 seconds 2 Other Exercise Name TA facilitation with a march Side bilateral 1 Other Exercise Name quadraped sidebends Side bilateral Reps/Minutes 10-15 reps Manual Therapy Treatment Soft Tissue Mobilization 2 Body Location piriformis release bilaterally 1 Body Location right parapsinals and quadratus lumborum Mobilization Type Myofascial Release Intensity/Depth Moderate Body Position Sidelying Comments pt instructed to use a pillow under her left side for sidelying sleeping at home PT-OP-T Assessment and Plan Start: 12/13/18 09:15 Freq: Status: Active Protocol: Document 12/19/18 17:12 [facility] (Rec: 12/19/18 17:16 [facility] [email or web address]) Physical Therapy Assessment Assessment Summary Assessment hypertrophied right paraspinals and tightness in the right QL, stands laterally shifted to the right. Very limited in standng lumbar spine ROM. Pt exercises daily at the gym and this helps to loosen her but doesn't take away buttocks and sacral pain symptoms. Physical Therapy Plan Frequency and Duration Frequency of Treatment 2x/Week Duration of Treatment 8 Plan of Care Start Date 12/13/18 Plan of Care End Date 01/24/19 Next Visit Focus/Plan Next Note Type Treatment Note Next Visit Plan aquatic therapy visit next visit. Working towards deep water running program
--- NOTE | 2018-12-22 17:13 | PT.OTN ---
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 She has had many trials of pain control including steriod injections, a nerve block and a nerve ablation. Her pain is moderate and constant rated 5/10. She exercises daily at the gym both cardio and weight lifting and she feels this keeps her going. Pain prevents her from walking long distances andfrom sitting more than 1 hour. She has a history of disc injury in her low back and Chron's disease Prior Treatments and Tests nerve blocks, nerve ablation, steriod injections into the SI joint and lumbar spine X-ray reveals grade 1 anterolesthesis L4-5 and degenerative joint disease, mild scolosis Treatment Goals Patient/Caregiver Goals Treatment goals include pain management ideas and aquatic therapy as a means to exercise Current Functional Impairments (Reported) Functional Limitations- ADL's pain prevents Ora from lifting heavy weights off of the floor, walking long distances, sitting more than a hour, standing more than a hour Functional Limitations- Recreation/ has not been able to run due Hobbies to pain PT-OP-C Subjective Start: 12/13/18 09:15 Freq: Status: Active Protocol: Document 12/22/18 11:45 LJ (Rec: 12/22/18 17:13 LJ [email or web address]) OP-PT Subjective Patient Comments Patient Comments Pt states she is feeling stiff in her lower back and sacral area today. She's excited to be in the pool for aquatic therapy and feels it will benefit her the most. PT-OP-F Manual Assessment Start: 12/13/18 09:15 Freq: Status: Active Protocol: Document 12/13/18 10:00 AMH (Rec: 12/18/18 15:04 AMH [email or web address]) Manual Assessments Soft Tissue Assessment Soft Tissue Mobility Assessment right>left lumbar paraspinal visable muscle guarding and restrictions PT-OP-J Posture/Palpation/Skin Start: 12/13/18 09:15 Freq: Status: Active Protocol: Document 12/13/18 10:00 AMH (Rec: 12/18/18 15:04 AMH [email or web address]) Posture Evaluation Comments Posture Comments pt stands with a right lateral shift and slight scoliosis with curve to the right Palpation Assessment Location One Palpation Location right parapsinals Palpation Findings Soft Tissue Tightness,Spasm, Muscle Guarding,Tenderness PT-OP-K Range of Motion Start: 12/13/18 09:15 Freq: Status: Active Protocol: Document 12/13/18 10:00 AMH (Rec: 12/18/18 15:04 AMH [email or web address]) Lumbar Spine Range of Motion Lumbar Spine Active Testing Position Standing Flexion 30 Lateral Flexion Left 15 Lateral Flexion Right 15 ROM Limitations Soft Tissue Tightness,Pain Comments flexion creates increased nerve pain into the sacrum PT-OP-L Special Tests Start: 12/13/18 09:15 Freq: Status: Active Protocol: Document 12/13/18 10:00 AMH (Rec: 12/18/18 15:04 AMH [email or web address]) Special Tests Lumbar Spine Special Tests Straight Leg Raise Test Results positive Comments end range only it recreates nerve pain bilaterally PT-OP-M Strength Start: 12/13/18 09:15 Freq: Status: Active Protocol: Document 12/13/18 10:00 AMH (Rec: 12/18/18 15:04 AMH [email or web address]) Trunk Strength Trunk Manual Muscle Testing Core Stabilization decreased activation of the transverse abdominal muscles and Ora reports she often feels as if those muscels have gone to sleep Hip Strength Hip Manual Muscle Testing Right Reason Not Measured WFL Knee Strength Knee Manual Muscle Testing Right Reason Not Measured WFL Ankle/Foot Strength Ankle and Foot Manual Muscle Testing Right Reason Not Measured WFL PT-OP-Q Treatments Start: 12/13/18 09:15 Freq: Status: Active Protocol: Document 12/19/18 17:12 AMH (Rec: 12/19/18 17:16 AMH [email or web address]) Therapeutic Exercises Supine Exercises 1 Supine Exercise Name piriformis stretch Reps/Minutes 2 reps x 1 min Prone Exercises 1 Prone Exercise Name cobra stretch Other Exercises 4 Other Exercise Name quadraped thoracic rotations Reps/Minutes 5 reps each side 3 Other Exercise Name right standing lateral shift correction at wall Reps/Minutes 10 reps hold 5 seconds 2 Other Exercise Name TA facilitation with a march Side bilateral 1 Other Exercise Name quadraped sidebends Side bilateral Reps/Minutes 10-15 reps Manual Therapy Treatment Soft Tissue Mobilization 2 Body Location piriformis release bilaterally 1 Body Location right parapsinals and quadratus lumborum Mobilization Type Myofascial Release Intensity/Depth Moderate Body Position Sidelying Comments pt instructed to use a pillow under her left side for sidelying sleeping at home PT-OP-S Aquatic Treatment Start: 12/22/18 16:50 Freq: Status: Active Protocol: Document 12/22/18 11:45 LJ (Rec: 12/22/18 17:13 LJ [email or web address]) Aquatics Treatment Pool Entry/Exit Pool Entry/Exit Method Edge of Pool Water Walking backward with breast stroke arms Water Level Chest Level Level of Assistance Verbal Cues Comments cues for core stabilization [place] March Water Level Chest Level Comments recrip arms with spinal rotation Sideways Water Level Chest Level Comments ab/ad arms Backwards Water Level Chest Level Comments recrip arms Forwards Water Level Chest Level Comments recrip arms Lower Extremity Exercises SL flex/ext-with power Body Position Standing Water Level Chest Level Reps/Duration 10 bilat Comments power as tolerated while maintaining stable core Lower Extremity Stretches quad Details at wall Body Position Standing Water Level Waist Level Equipment Large Noodle Reps/Duration 2x 45 HS Details at wall Body Position Standing Water Level Waist Level Equipment Large Noodle Reps/Duration 2x 45 Comments horiz ab/ad stretch incorporated-bilat Spinal Exercises supine DLS Details maintaining straight torso during Bad Ragaz Reps/Duration 4x each direction [place] Activities [place] Activities Bicycle,Cross Country,Running, Hip Abduction/Adduction Other Activities ski with horizontal swing side to side Equipment belt Duration 12 min Comments introduction to deep water exercises Manual Techniques Bad Ragaz LLE floats and black neck float lateral flexion and extension with stretching pt resisting and facilitating in motion reduce tightness in right QL PT-OP-T Assessment and Plan Start: 12/13/18 09:15 Freq: Status: Active Protocol: Document 12/22/18 11:45 WILLIAN (Rec: 12/22/18 17:13 WILLIAN [email or web address]) Physical Therapy Assessment Rehab Potential Rehabilitation Potential Good Impairments Impairments Activity Tolerance,Functional Activities,Pain,Posture,ROM, Soft Tissue Mobility,Strength Goals Four Impairment increased pain with running or hiking activities Finisher Screwdown Goal (LTG) Carisa is educated in aquatic therapy running program that she is able to tolerate without increased pain symptoms LTG Duration 8 weeks Three Impairment Restricted lumbar spine ROM especially flexion which recreates pain Short Term Goal (STG) Ornasreen is able to perform lisha pose and cat cow without any increase in pain symptoms into the sacrum and buttocks STG Duration 4-6 weeks Finisher Screwdown Goal (LTG) Improve standing lumbar flexion to WFL and without a reproduction in pain symptoms Two Impairment pain rated 5/10 bilateral sacral and buttocks region Snf Goal (LTG) Ora reports a overall reduction in pain in the sacral and buttocks region LTG Duration 8 weeks One Impairment right lateral shift in standing with parapsinal hypertrophy Short Term Goal (STG) Ornasreen is educated in both prone positioning as well as a lateral shift correction exercise STG Duration 2-3 weeks Finisher Screwdown Goal (LTG) Ornasreen presents with a reduced lateral shift in standing LTG Duration 8 weeks Assessment Summary Assessment Pt reports she stretches a lot at home and spends much time in the gym. She tolerated exercises in the shallow and deep water well and will most likely be able to progress quickly. Bad Ragaz resulted in loosening paraspinals on right side. Physical Therapy Plan Frequency and Duration Frequency of Treatment 2x/Week Duration of Treatment 8 Plan of Care Start Date 12/13/18 Plan of Care End Date 01/24/19 Therapeutic Interventions Therapeutic Interventions Aquatic Therapy,Home Exercise Program,Manual Therapy, Neuromuscular Re-education, Patient/Caregiver Education, Self-Care/Home Management,Soft Tissue Mobilization, Therapeutic Exercises Next Visit Focus/Plan Next Note Type Treatment Note Next Visit Plan Work on stretching with aquatic therapy and increasing intensity with interval training incorporated in a running program.
--- NOTE | 2018-12-25 16:49 | PT.OTN ---
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 She has had many trials of pain control including steriod injections, a nerve block and a nerve ablation. Her pain is moderate and constant rated 5/10. She exercises daily at the gym both cardio and weight lifting and she feels this keeps her going. Pain prevents her from walking long distances andfrom sitting more than 1 hour. She has a history of disc injury in her low back and Chron's disease Prior Treatments and Tests nerve blocks, nerve ablation, steriod injections into the SI joint and lumbar spine X-ray reveals grade 1 anterolesthesis L4-5 and degenerative joint disease, mild scolosis Treatment Goals Patient/Caregiver Goals Treatment goals include pain management ideas and aquatic therapy as a means to exercise Current Functional Impairments (Reported) Functional Limitations- ADL's pain prevents Ora from lifting heavy weights off of the floor, walking long distances, sitting more than a hour, standing more than a hour Functional Limitations- Recreation/ has not been able to run due Hobbies to pain PT-OP-C Subjective Start: 12/13/18 09:15 Freq: Status: Active Protocol: Document 12/25/18 11:45 LJ (Rec: 12/25/18 16:49 LJ [email or web address]) OP-PT Subjective Patient Comments Patient Comments Pt states the aquatic therapy session last time caused some increased nerve involvement of her LEs but that happens anyway. She was very relaxed after Bad Ragaz treatment and feels it loosened her up. PT-OP-F Manual Assessment Start: 12/13/18 09:15 Freq: Status: Active Protocol: Document 12/13/18 10:00 AMH (Rec: 12/18/18 15:04 AMH [email or web address]) Manual Assessments Soft Tissue Assessment Soft Tissue Mobility Assessment right>left lumbar paraspinal visable muscle guarding and restrictions PT-OP-J Posture/Palpation/Skin Start: 12/13/18 09:15 Freq: Status: Active Protocol: Document 12/13/18 10:00 AMH (Rec: 12/18/18 15:04 AMH [email or web address]) Posture Evaluation Comments Posture Comments pt stands with a right lateral shift and slight scoliosis with curve to the right Palpation Assessment Location One Palpation Location right parapsinals Palpation Findings Soft Tissue Tightness,Spasm, Muscle Guarding,Tenderness PT-OP-K Range of Motion Start: 12/13/18 09:15 Freq: Status: Active Protocol: Document 12/13/18 10:00 AMH (Rec: 12/18/18 15:04 AMH [email or web address]) Lumbar Spine Range of Motion Lumbar Spine Active Testing Position Standing Flexion 30 Lateral Flexion Left 15 Lateral Flexion Right 15 ROM Limitations Soft Tissue Tightness,Pain Comments flexion creates increased nerve pain into the sacrum PT-OP-L Special Tests Start: 12/13/18 09:15 Freq: Status: Active Protocol: Document 12/13/18 10:00 AMH (Rec: 12/18/18 15:04 AMH [email or web address]) Special Tests Lumbar Spine Special Tests Straight Leg Raise Test Results positive Comments end range only it recreates nerve pain bilaterally PT-OP-M Strength Start: 12/13/18 09:15 Freq: Status: Active Protocol: Document 12/13/18 10:00 AMH (Rec: 12/18/18 15:04 AMH [email or web address]) Trunk Strength Trunk Manual Muscle Testing Core Stabilization decreased activation of the transverse abdominal muscles and Ora reports she often feels as if those muscels have gone to sleep Hip Strength Hip Manual Muscle Testing Right Reason Not Measured WFL Knee Strength Knee Manual Muscle Testing Right Reason Not Measured WFL Ankle/Foot Strength Ankle and Foot Manual Muscle Testing Right Reason Not Measured WFL PT-OP-Q Treatments Start: 12/13/18 09:15 Freq: Status: Active Protocol: Document 12/19/18 17:12 AMH (Rec: 12/19/18 17:16 AMH [email or web address]) Therapeutic Exercises Supine Exercises 1 Supine Exercise Name piriformis stretch Reps/Minutes 2 reps x 1 min Prone Exercises 1 Prone Exercise Name cobra stretch Other Exercises 4 Other Exercise Name quadraped thoracic rotations Reps/Minutes 5 reps each side 3 Other Exercise Name right standing lateral shift correction at wall Reps/Minutes 10 reps hold 5 seconds 2 Other Exercise Name TA facilitation with a march Side bilateral 1 Other Exercise Name quadraped sidebends Side bilateral Reps/Minutes 10-15 reps Manual Therapy Treatment Soft Tissue Mobilization 2 Body Location piriformis release bilaterally 1 Body Location right parapsinals and quadratus lumborum Mobilization Type Myofascial Release Intensity/Depth Moderate Body Position Sidelying Comments pt instructed to use a pillow under her left side for sidelying sleeping at home PT-OP-S Aquatic Treatment Start: 12/22/18 16:50 Freq: Status: Active Protocol: Document 12/25/18 11:45 LJ (Rec: 12/25/18 16:49 LJ [email or web address]) Aquatics Treatment Pool Entry/Exit Pool Entry/Exit Method Edge of Pool Water Walking circumduction-forward and backward Water Level Chest Level Comments cues for core stab backward with breast stroke arms Water Level Chest Level Level of Assistance Verbal Cues Comments cues for core stabilization [place] March Water Level Chest Level Comments recip arms with spinal rotation Sideways Water Level Chest Level Comments ab/ad arms Backwards Water Level Chest Level Comments recip arms Forwards Water Level Chest Level Comments recip arms Lower Extremity Exercises hacky sac Water Level Chest Level Reps/Duration 10x bilat flex/ext gentle Water Level Chest Level Reps/Duration 10 bilat Lower Extremity Stretches quad Details at wall Body Position Standing Water Level Waist Level Equipment Large Noodle Reps/Duration 2x 45 HS Details at wall Body Position Standing Water Level Waist Level Equipment Large Noodle Reps/Duration 2x 45 Comments horiz ab/ad stretch incorporated-bilat Upper Extremity Exercises fl/ex. ab/ad, hor ab/ad Body Position Standing Water Level Chest Level Reps/Duration 10x ea Comments cues for core stab [place] Activities [place] Activities Bicycle,Cross Country,Running, Hip Abduction/Adduction Equipment belt Duration 8 min Manual Techniques Aquatic Manual Traction ankle wts, blue float 8 min PT-OP-T Assessment and Plan Start: 12/13/18 09:15 Freq: Status: Active Protocol: Document 12/25/18 11:45 WILLIAN (Rec: 12/25/18 16:49 WILLIAN [email or web address]) Physical Therapy Assessment Rehab Potential Rehabilitation Potential Good Impairments Impairments Activity Tolerance,Functional Activities,Pain,Posture,ROM, Soft Tissue Mobility,Strength Goals Four Impairment increased pain with running or hiking activities Owner Goal (LTG) Ornasreen is educated in aquatic therapy running program that she is able to tolerate without increased pain symptoms LTG Duration 8 weeks Three Impairment Restricted lumbar spine ROM especially flexion which recreates pain Short Term Goal (STG) Ora is able to perform lisha pose and cat cow without any increase in pain symptoms into the sacrum and buttocks STG Duration 4-6 weeks Senior Care Goal (LTG) Improve standing lumbar flexion to WFL and without a reproduction in pain symptoms Two Impairment pain rated 5/10 bilateral sacral and buttocks region Owner Goal (LTG) Ora reports a overall reduction in pain in the sacral and buttocks region LTG Duration 8 weeks One Impairment right lateral shift in standing with parapsinal hypertrophy Short Term Goal (STG) Ora is educated in both prone positioning as well as a lateral shift correction exercise STG Duration 2-3 weeks Owner Goal (LTG) Ora presents with a reduced lateral shift in standing LTG Duration 8 weeks Assessment Summary Assessment Pt tolerated exercises and stretches well. Gentler movements focusing more on relaxing and dynamic stretching. Pt was cold by the end of traction and wanted to exit pool. Physical Therapy Plan Frequency and Duration Frequency of Treatment 2x/Week Duration of Treatment 8 Plan of Care Start Date 12/13/18 Plan of Care End Date 01/24/19 Therapeutic Interventions Therapeutic Interventions Aquatic Therapy,Home Exercise Program,Manual Therapy, Neuromuscular Re-education, Patient/Caregiver Education, Self-Care/Home Management,Soft Tissue Mobilization, Therapeutic Exercises Next Visit Focus/Plan Next Note Type Treatment Note Next Visit Plan Continue with stretching and incorporate Chi with breathing for relaxation and flexibility. Continue with deep water and traction as needed.
--- NOTE | 2019-01-01 16:01 | PT.OTN ---
Current Diagnoses Cervicalgia (01/01/19) Low back pain (01/01/19) Physical Therapy Treatment Note PT-OP-A Visit Information Start: 12/13/18 09:15 Freq: Status: Active Protocol: Document 01/01/19 11:00 LJ (Rec: 01/01/19 16:01 LJ [id number]) Out-Patient Physical Therapy Visit Information Visit Information Visit Type Aquatic Treatment Note Visit Start Time 11:45 Visit Stop Time 12:30 Total Visit Minutes 45 Visit Number 5 Number of GAUGE MAKER Visits 3 PT-OP-B Current Condition Start: 12/13/18 09:15 Freq: Status: Active Protocol: Document 12/13/18 10:00 AMH (Rec: 12/18/18 15:04 AMH [email or web address]) Current Condition History of Current Condition Onset Date 2006 Current Complaints sharp nerve pain into her buttocks, pain with walking and rolling in bed History of Current Condition Ora describes low back pain that began for her in 2006. She has had many trials of pain control including steriod injections, a nerve block and a nerve ablation. Her pain is moderate and constant rated 5/10. She exercises daily at the gym both cardio and weight lifting and she feels this keeps her going. Pain prevents her from walking long distances andfrom sitting more than 1 hour. She has a history of disc injury in her low back and Chron's disease Prior Treatments and Tests nerve blocks, nerve ablation, steriod injections into the SI joint and lumbar spine X-ray reveals grade 1 anterolesthesis L4-5 and degenerative joint disease, mild scolosis Treatment Goals Patient/Caregiver Goals Treatment goals include pain management ideas and aquatic therapy as a means to exercise Current Functional Impairments (Reported) Functional Limitations- ADL's pain prevents Ora from lifting heavy weights off of the floor, walking long distances, sitting more than a hour, standing more than a hour Functional Limitations- Recreation/ has not been able to run due Hobbies to pain PT-OP-C Subjective Start: 12/13/18 09:15 Freq: Status: Active Protocol: Document 01/01/19 11:00 LJ (Rec: 01/01/19 16:01 LJ [id number]) OP-PT Subjective Patient Comments Patient Comments Pt had nothing new to report. States her low back still hurts on and off. Not sure what sets it off. States she should pay better attention during her gym sessions to figure out what causes the pain. PT-OP-F Manual Assessment Start: 12/13/18 09:15 Freq: Status: Active Protocol: Document 12/13/18 10:00 AMH (Rec: 12/18/18 15:04 AMH [email or web address]) Manual Assessments Soft Tissue Assessment Soft Tissue Mobility Assessment right>left lumbar paraspinal visable muscle guarding and restrictions PT-OP-J Posture/Palpation/Skin Start: 12/13/18 09:15 Freq: Status: Active Protocol: Document 12/13/18 10:00 AMH (Rec: 12/18/18 15:04 AMH [email or web address]) Posture Evaluation Comments Posture Comments pt stands with a right lateral shift and slight scoliosis with curve to the right Palpation Assessment Location One Palpation Location right parapsinals Palpation Findings Soft Tissue Tightness,Spasm, Muscle Guarding,Tenderness PT-OP-K Range of Motion Start: 12/13/18 09:15 Freq: Status: Active Protocol: Document 12/13/18 10:00 AMH (Rec: 12/18/18 15:04 AMH [email or web address]) Lumbar Spine Range of Motion Lumbar Spine Active Testing Position Standing Flexion 30 Lateral Flexion Left 15 Lateral Flexion Right 15 ROM Limitations Soft Tissue Tightness,Pain Comments flexion creates increased nerve pain into the sacrum PT-OP-L Special Tests Start: 12/13/18 09:15 Freq: Status: Active Protocol: Document 12/13/18 10:00 AMH (Rec: 12/18/18 15:04 AMH [email or web address]) Special Tests Lumbar Spine Special Tests Straight Leg Raise Test Results positive Comments end range only it recreates nerve pain bilaterally PT-OP-M Strength Start: 12/13/18 09:15 Freq: Status: Active Protocol: Document 12/13/18 10:00 AMH (Rec: 12/18/18 15:04 AMH [email or web address]) Trunk Strength Trunk Manual Muscle Testing Core Stabilization decreased activation of the transverse abdominal muscles and Ora reports she often feels as if those muscels have gone to sleep Hip Strength Hip Manual Muscle Testing Right Reason Not Measured WFL Knee Strength Knee Manual Muscle Testing Right Reason Not Measured WFL Ankle/Foot Strength Ankle and Foot Manual Muscle Testing Right Reason Not Measured WFL PT-OP-Q Treatments Start: 12/13/18 09:15 Freq: Status: Active Protocol: Document 12/19/18 17:12 AMH (Rec: 12/19/18 17:16 AMH [email or web address]) Therapeutic Exercises Supine Exercises 1 Supine Exercise Name piriformis stretch Reps/Minutes 2 reps x 1 min Prone Exercises 1 Prone Exercise Name cobra stretch Other Exercises 4 Other Exercise Name quadraped thoracic rotations Reps/Minutes 5 reps each side 3 Other Exercise Name right standing lateral shift correction at wall Reps/Minutes 10 reps hold 5 seconds 2 Other Exercise Name TA facilitation with a march Side bilateral 1 Other Exercise Name quadraped sidebends Side bilateral Reps/Minutes 10-15 reps Manual Therapy Treatment Soft Tissue Mobilization 2 Body Location piriformis release bilaterally 1 Body Location right parapsinals and quadratus lumborum Mobilization Type Myofascial Release Intensity/Depth Moderate Body Position Sidelying Comments pt instructed to use a pillow under her left side for sidelying sleeping at home PT-OP-S Aquatic Treatment Start: 12/22/18 16:50 Freq: Status: Active Protocol: Document 01/01/19 11:00 WILLIAN (Rec: 01/01/19 16:01 LJ [id number]) Aquatics Treatment Pool Entry/Exit Pool Entry/Exit Method Stairs Water Walking backward with breast stroke arms Water Level Chest Level Level of Assistance Verbal Cues Comments cues for core stabilization [place] March Water Level Chest Level Comments recip arms with spinal rotation Sideways Water Level Chest Level Comments ab/ad arms Backwards Water Level Chest Level Comments recip arms Forwards Water Level Chest Level Comments recip arms Lower Extremity Exercises hip ab/ad-crossover Body Position Standing Water Level Waist Level Reps/Duration 10x2 bilat hip circumduction Body Position Standing Water Level Waist Level Reps/Duration 10x2 bilat and both dir flex/ext gentle Water Level Chest Level Reps/Duration 10x2 bilat SL flex/ext-with power Body Position Standing Water Level Chest Level Reps/Duration 10 bilat Comments power as tolerated while maintaining stable core Lower Extremity Stretches spiderman with body swing Water Level Neck Level Reps/Duration 3 min Comments various positions HC Body Position Standing Water Level Chest Level Reps/Duration 45x2 Comments bilat hip flexor Body Position Standing Water Level Chest Level Reps/Duration 45x2 Comments bilat quad Details at wall Body Position Standing Water Level Waist Level Equipment Large Noodle Reps/Duration 2x 45 HS Details at wall Body Position Standing Water Level Waist Level Equipment Large Noodle Reps/Duration 2x 45 Comments horiz ab/ad stretch incorporated-bilat Upper Extremity Exercises fl/ex. ab/ad, hor ab/ad Body Position Standing Water Level Chest Level Reps/Duration 10x ea Comments cues for core stab [place] Activities [place] Activities Bicycle,Cross Country,Running, Hip Abduction/Adduction Other Activities 30/15 5 rounds each of running, skiing, biking 60% PRE Equipment belt Duration 10 PT-OP-T Assessment and Plan Start: 12/13/18 09:15 Freq: Status: Active Protocol: Document 01/01/19 11:00 WILLIAN (Rec: 01/01/19 16:01 [id number]) Physical Therapy Assessment Rehab Potential Rehabilitation Potential Good Impairments Impairments Activity Tolerance,Functional Activities,Pain,Posture,ROM, Soft Tissue Mobility,Strength Goals Four Impairment increased pain with running or hiking activities Assisted Goal (LTG) Carisa is educated in aquatic therapy running program that she is able to tolerate without increased pain symptoms LTG Duration 8 weeks Three Impairment Restricted lumbar spine ROM especially flexion which recreates pain Short Term Goal (STG) Ornasreen is able to perform lisha pose and cat cow without any increase in pain symptoms into the sacrum and buttocks STG Duration 4-6 weeks Cloth Desizing Range Operator Chief Goal (LTG) Improve standing lumbar flexion to WFL and without a reproduction in pain symptoms Two Impairment pain rated 5/10 bilateral sacral and buttocks region Assisted Goal (LTG) Ora reports a overall reduction in pain in the sacral and buttocks region LTG Duration 8 weeks One Impairment right lateral shift in standing with parapsinal hypertrophy Short Term Goal (STG) Ornasreen is educated in both prone positioning as well as a lateral shift correction exercise STG Duration 2-3 weeks Assisted Goal (LTG) Ora presents with a reduced lateral shift in standing LTG Duration 8 weeks Assessment Summary Assessment Pt spent time stretching and standing exercises to warm up prior to increased intensity exercises in deep water. Pt tolerated deep water intervals well with no increase in pain . Spent several minutes walking in shallow water for cool down prior to exiting pool. Physical Therapy Plan Frequency and Duration Frequency of Treatment 2x/Week Duration of Treatment 8 Plan of Care Start Date 12/13/18 Plan of Care End Date 01/24/19 Therapeutic Interventions Therapeutic Interventions Aquatic Therapy,Home Exercise Program,Manual Therapy, Neuromuscular Re-education, Patient/Caregiver Education, Self-Care/Home Management,Soft Tissue Mobilization, Therapeutic Exercises Next Visit Focus/Plan Next Note Type Treatment Note Next Visit Plan Continue with stretching and strengthening exercises. Address specific exercises for posture and hip stability as well as scoliosis.
--- NOTE | 2019-01-08 11:26 | PT.OTN ---
Current Diagnoses Cervicalgia (01/08/19) Low back pain (01/08/19) Physical Therapy Treatment Note PT-OP-A Visit Information Start: 12/13/18 09:15 Freq: Status: Active Protocol: Document 01/08/19 11:16 SP (Rec: 01/08/19 11:26 SP [email or web address]) Out-Patient Physical Therapy Visit Information Visit Information Visit Type Treatment Note Visit Start Time 10:32 Visit Stop Time 11:15 Total Visit Minutes 43 Visit Number 6 Number of ACADEMIC AFFAIRS SPECIALIST Visits 4 PT-OP-B Current Condition Start: 12/13/18 09:15 Freq: Status: Active Protocol: Document 12/13/18 10:00 AMH (Rec: 12/18/18 15:04 AMH [email or web address]) Current Condition History of Current Condition Onset Date 2006 Current Complaints sharp nerve pain into her buttocks, pain with walking and rolling in bed History of Current Condition Ora describes low back pain that began for her in 2006. She has had many trials of pain control including steriod injections, a nerve block and a nerve ablation. Her pain is moderate and constant rated 5/10. She exercises daily at the gym both cardio and weight lifting and she feels this keeps her going. Pain prevents her from walking long distances andfrom sitting more than 1 hour. She has a history of disc injury in her low back and Chron's disease Prior Treatments and Tests nerve blocks, nerve ablation, steriod injections into the SI joint and lumbar spine X-ray reveals grade 1 anterolesthesis L4-5 and degenerative joint disease, mild scolosis Treatment Goals Patient/Caregiver Goals Treatment goals include pain management ideas and aquatic therapy as a means to exercise Current Functional Impairments (Reported) Functional Limitations- ADL's pain prevents Ora from lifting heavy weights off of the floor, walking long distances, sitting more than a hour, standing more than a hour Functional Limitations- Recreation/ has not been able to run due Hobbies to pain PT-OP-C Subjective Start: 12/13/18 09:15 Freq: Status: Active Protocol: Document 01/08/19 11:16 SP (Rec: 01/08/19 11:26 SP [email or web address]) OP-PT Subjective Patient Comments Patient Comments Pt stated about 4/10 pain R buttocks pre PT, using sauna helped just prior to PT tx today. Back still hurting and getting a zingy pain into R glut still. Patient Reported Progress Same PT-OP-F Manual Assessment Start: 12/13/18 09:15 Freq: Status: Active Protocol: Document 12/13/18 10:00 AMH (Rec: 12/18/18 15:04 AMH [email or web address]) Manual Assessments Soft Tissue Assessment Soft Tissue Mobility Assessment right>left lumbar paraspinal visable muscle guarding and restrictions PT-OP-J Posture/Palpation/Skin Start: 12/13/18 09:15 Freq: Status: Active Protocol: Document 12/13/18 10:00 AMH (Rec: 12/18/18 15:04 AMH [email or web address]) Posture Evaluation Comments Posture Comments pt stands with a right lateral shift and slight scoliosis with curve to the right Palpation Assessment Location One Palpation Location right parapsinals Palpation Findings Soft Tissue Tightness,Spasm, Muscle Guarding,Tenderness PT-OP-K Range of Motion Start: 12/13/18 09:15 Freq: Status: Active Protocol: Document 12/13/18 10:00 AMH (Rec: 12/18/18 15:04 AMH [email or web address]) Lumbar Spine Range of Motion Lumbar Spine Active Testing Position Standing Flexion 30 Lateral Flexion Left 15 Lateral Flexion Right 15 ROM Limitations Soft Tissue Tightness,Pain Comments flexion creates increased nerve pain into the sacrum PT-OP-L Special Tests Start: 12/13/18 09:15 Freq: Status: Active Protocol: Document 12/13/18 10:00 AMH (Rec: 12/18/18 15:04 AMH [email or web address]) Special Tests Lumbar Spine Special Tests Straight Leg Raise Test Results positive Comments end range only it recreates nerve pain bilaterally PT-OP-M Strength Start: 12/13/18 09:15 Freq: Status: Active Protocol: Document 12/13/18 10:00 AMH (Rec: 12/18/18 15:04 AMH [email or web address]) Trunk Strength Trunk Manual Muscle Testing Core Stabilization decreased activation of the transverse abdominal muscles and Ora reports she often feels as if those muscels have gone to sleep Hip Strength Hip Manual Muscle Testing Right Reason Not Measured WFL Knee Strength Knee Manual Muscle Testing Right Reason Not Measured WFL Ankle/Foot Strength Ankle and Foot Manual Muscle Testing Right Reason Not Measured WFL PT-OP-Q Treatments Start: 12/13/18 09:15 Freq: Status: Active Protocol: Document 01/08/19 11:16 SP (Rec: 01/08/19 11:26 SP [email or web address]) Cardio Equipment Recumbent Stepper (Sci-Fit) Duration (Minutes) 7 Resistance 3.7 Seat Position 7 Therapeutic Exercises Supine Exercises Figure 4 stretch Side bilateral Reps/Minutes 30 sec x2 2 Supine Exercise Name TB shd ext with opposite LE hip flexion Side bilateral Equipment Used level 2 Reps/Minutes 3x10 Comments cued for neutral pelvis and core activation, slow controlled 1 Supine Exercise Name bug Reps/Minutes 2x10 Prone Exercises 1 Prone Exercise Name child's pose with side bend Side bilateral Reps/Minutes 30 sec Sitting Exercises Lat pull down SB Sitting Exercise Name Reclined sitting Side bilateral Resistance level 2 TB Equipment Used samoan ball Reps/Minutes 3x10 PT-OP-S Aquatic Treatment Start: 12/22/18 16:50 Freq: Status: Active Protocol: Document 01/01/19 11:00 LJ (Rec: 01/01/19 16:01 LJ [id number]) Aquatics Treatment Pool Entry/Exit Pool Entry/Exit Method Stairs Water Walking backward with breast stroke arms Water Level Chest Level Level of Assistance Verbal Cues Comments cues for core stabilization [place] March Water Level Chest Level Comments recip arms with spinal rotation Sideways Water Level Chest Level Comments ab/ad arms Backwards Water Level Chest Level Comments recip arms Forwards Water Level Chest Level Comments recip arms Lower Extremity Exercises hip ab/ad-crossover Body Position Standing Water Level Waist Level Reps/Duration 10x2 bilat hip circumduction Body Position Standing Water Level Waist Level Reps/Duration 10x2 bilat and both dir flex/ext gentle Water Level Chest Level Reps/Duration 10x2 bilat SL flex/ext-with power Body Position Standing Water Level Chest Level Reps/Duration 10 bilat Comments power as tolerated while maintaining stable core Lower Extremity Stretches spiderman with body swing Water Level Neck Level Reps/Duration 3 min Comments various positions HC Body Position Standing Water Level Chest Level Reps/Duration 45x2 Comments bilat hip flexor Body Position Standing Water Level Chest Level Reps/Duration 45x2 Comments bilat quad Details at wall Body Position Standing Water Level Waist Level Equipment Large Noodle Reps/Duration 2x 45 HS Details at wall Body Position Standing Water Level Waist Level Equipment Large Noodle Reps/Duration 2x 45 Comments horiz ab/ad stretch incorporated-bilat Upper Extremity Exercises fl/ex. ab/ad, hor ab/ad Body Position Standing Water Level Chest Level Reps/Duration 10x ea Comments cues for core stab [place] Activities [place] Activities Bicycle,Cross Country,Running, Hip Abduction/Adduction Other Activities 30/15 5 rounds each of running, skiing, biking 60% PRE Equipment belt Duration 10 PT-OP-T Assessment and Plan Start: 12/13/18 09:15 Freq: Status: Active Protocol: Document 01/08/19 11:16 SP (Rec: 01/08/19 11:26 SP [email or web address]) Physical Therapy Assessment Assessment Summary Assessment Tx focused on trans ab engagement and allowable resistance. Stretching end of tx for decreased tension. No adverse affects to ther ex. provided hand out for self recall and form. Decreased reported pain 2/10. Physical Therapy Plan Frequency and Duration Frequency of Treatment 2x/Week Duration of Treatment 8 Plan of Care Start Date 12/13/18 Plan of Care End Date 01/24/19 Therapeutic Interventions Therapeutic Interventions Aquatic Therapy,Home Exercise Program,Manual Therapy, Neuromuscular Re-education, Patient/Caregiver Education, Self-Care/Home Management,Soft Tissue Mobilization, Therapeutic Exercises Next Visit Focus/Plan Next Note Type Treatment Note Next Visit Plan Continue with stretching and strengthening exercises. Address specific exercises for posture and hip stability as well as scoliosis.
--- NOTE | 2019-02-01 15:00 | PT.OPPOC ---
Current Diagnoses Cervicalgia (02/01/19) Low back pain (02/01/19) Visit Care Team Role Provider Type Mary Anderson DO Attending Provider Physician Primary Care Provider Specialty: Family Practice Address: [address] [place] [address], [address], [address] Email: [email or web address] Plan Of Care PT-OP-T Assessment and Plan Start: 12/13/18 09:15 Freq: Status: Active Protocol: Document 02/01/19 14:30 AMH (Rec: 02/03/19 12:51 AMH [email or web address]) Physical Therapy Assessment Goals Four Impairment increased pain with running or hiking activities Custodial Goal (LTG) Carisa is educated in aquatic therapy running program that she is able to tolerate without increased pain symptoms GOOD PROGRESS LTG Duration 8 weeks Three Impairment Restricted lumbar spine ROM especially flexion which recreates pain Short Term Goal (STG) Carisa is able to perform lisha pose and cat cow without any increase in pain symptoms into the sacrum and buttocks GOOD PROGRESS STG Duration 4-6 weeks Custodial Goal (LTG) Improve standing lumbar flexion to WFL and without a reproduction in pain symptoms SOME PROGRESS Two Impairment pain rated 5/10 bilateral sacral and buttocks region Lumber Press Operator Goal (LTG) Carisa reports a overall reduction in pain in the sacral and buttocks region STILL NOTING PAIN SYMPTOMS BUT TOLERATING MORE NOW LTG Duration 8 weeks One Impairment right lateral shift in standing with parapsinal hypertrophy Short Term Goal (STG) Carisa is educated in both prone positioning as well as a lateral shift correction exercise STG Duration 2-3 weeks Lumber Press Operator Goal (LTG) Carisa presents with a reduced lateral shift in standing NO CHANGE LTG Duration 8 weeks Assessment Summary Assessment Carisa is still very tight and guarded in the lumbar parapsinals but not as severe as initial assessment. Carisa has been seen for 7 visits only as her insurance. She has been seen both in the pool and in the clinic. She is feeling like she can exercise in the pool with decreased compression on her spine. We are focusing on spinal stabilization, ROM, and decreasing guarding and spasm in the clinic. Carisa would benefit from continuing PT. Physical Therapy Plan Frequency and Duration Frequency of Treatment 2x/Week Duration of Treatment 8 Plan of Care Start Date 02/01/19 Plan of Care End Date 03/29/19 Therapeutic Interventions Therapeutic Interventions Aquatic Therapy,Home Exercise Program,Manual Therapy, Neuromuscular Re-education, Patient/Caregiver Education, Self-Care/Home Management,Soft Tissue Mobilization, Therapeutic Exercises Next Visit Focus/Plan Next Note Type Treatment Note Next Visit Plan Continue with stretching and strengthening exercises. Address specific exercises for posture and hip stability as well as scoliosis. Plan of Care Dates Plan of Care Start Date 02/01/19 Plan of Care End Date 03/29/19
--- NOTE | 2019-02-03 12:51 | PT.OTN ---
Current Diagnoses Cervicalgia (02/01/19) Low back pain (02/01/19) Physical Therapy Treatment Note PT-OP-A Visit Information Start: 12/13/18 09:15 Freq: Status: Active Protocol: Document 02/01/19 14:30 [facility] (Rec: 02/03/19 12:51 [facility] [email or web address]) Out-Patient Physical Therapy Visit Information Visit Information Visit Type Treatment Note Visit Start Time 14:30 Visit Stop Time 15:15 Total Visit Minutes 45 Visit Number 7 Number of RENAL DIALYSIS TECHNICIAN Visits 5 PT-OP-B Current Condition Start: 12/13/18 09:15 Freq: Status: Active Protocol: Document 12/13/18 10:00 [facility] (Rec: 12/18/18 15:04 [facility] [email or web address]) Current Condition History of Current Condition Onset Date 2006 Current Complaints sharp nerve pain into her buttocks, pain with walking and rolling in bed History of Current Condition Ora describes low back pain that began for her in 2006. She has had many trials of pain control including steriod injections, a nerve block and a nerve ablation. Her pain is moderate and constant rated 5/10. She exercises daily at the gym both cardio and weight lifting and she feels this keeps her going. Pain prevents her from walking long distances andfrom sitting more than 1 hour. She has a history of disc injury in her low back and Chron's disease Prior Treatments and Tests nerve blocks, nerve ablation, steriod injections into the SI joint and lumbar spine X-ray reveals grade 1 anterolesthesis L4-5 and degenerative joint disease, mild scolosis Treatment Goals Patient/Caregiver Goals Treatment goals include pain management ideas and aquatic therapy as a means to exercise Current Functional Impairments (Reported) Functional Limitations- ADL's pain prevents Ora from lifting heavy weights off of the floor, walking long distances, sitting more than a hour, standing more than a hour Functional Limitations- Recreation/ has not been able to run due Hobbies to pain PT-OP-C Subjective Start: 12/13/18 09:15 Freq: Status: Active Protocol: Document 02/01/19 14:30 [facility] (Rec: 02/03/19 12:51 [facility] [email or web address]) OP-PT Subjective Patient Comments Patient Comments pt returns to PT after having to hold secondary to insurance authorizations She notes sheh as liked the weighted belt in the pool as she can move without spinal compression. She recently had a severe chron's disease flare up so she hasn't been doing as much. Doing better now PT-OP-F Manual Assessment Start: 12/13/18 09:15 Freq: Status: Active Protocol: Document 12/13/18 10:00 [facility] (Rec: 12/18/18 15:04 [facility] [email or web address]) Manual Assessments Soft Tissue Assessment Soft Tissue Mobility Assessment right>left lumbar paraspinal visable muscle guarding and restrictions PT-OP-J Posture/Palpation/Skin Start: 12/13/18 09:15 Freq: Status: Active Protocol: Document 12/13/18 10:00 [facility] (Rec: 12/18/18 15:04 [facility] [email or web address]) Posture Evaluation Comments Posture Comments pt stands with a right lateral shift and slight scoliosis with curve to the right Palpation Assessment Location One Palpation Location right parapsinals Palpation Findings Soft Tissue Tightness,Spasm, Muscle Guarding,Tenderness PT-OP-K Range of Motion Start: 12/13/18 09:15 Freq: Status: Active Protocol: Document 12/13/18 10:00 [facility] (Rec: 12/18/18 15:04 [facility] [email or web address]) Lumbar Spine Range of Motion Lumbar Spine Active Testing Position Standing Flexion 30 Lateral Flexion Left 15 Lateral Flexion Right 15 ROM Limitations Soft Tissue Tightness,Pain Comments flexion creates increased nerve pain into the sacrum PT-OP-L Special Tests Start: 12/13/18 09:15 Freq: Status: Active Protocol: Document 12/13/18 10:00 [facility] (Rec: 12/18/18 15:04 [facility] [email or web address]) Special Tests Lumbar Spine Special Tests Straight Leg Raise Test Results positive Comments end range only it recreates nerve pain bilaterally PT-OP-M Strength Start: 12/13/18 09:15 Freq: Status: Active Protocol: Document 12/13/18 10:00 [facility] (Rec: 12/18/18 15:04 [facility] [email or web address]) Trunk Strength Trunk Manual Muscle Testing Core Stabilization decreased activation of the transverse abdominal muscles and Ora reports she often feels as if those muscels have gone to sleep Hip Strength Hip Manual Muscle Testing Right Reason Not Measured WFL Knee Strength Knee Manual Muscle Testing Right Reason Not Measured WFL Ankle/Foot Strength Ankle and Foot Manual Muscle Testing Right Reason Not Measured WFL PT-OP-Q Treatments Start: 12/13/18 09:15 Freq: Status: Active Protocol: Document 02/01/19 14:30 [facility] (Rec: 02/03/19 12:51 [facility] [email or web address]) Manual Therapy Treatment Soft Tissue Mobilization 2 Body Location piriformis release bilaterally 1 Body Location right parapsinals and quadratus lumborum Mobilization Type Myofascial Release Intensity/Depth Moderate Body Position Sidelying Comments pt instructed to use a pillow under her left side for sidelying sleeping at home Self-Care/Home Management Treatment Education Patient Education Home Exercise Program Other Education review of home stretches and sleeping positions PT-OP-S Aquatic Treatment Start: 12/22/18 16:50 Freq: Status: Active Protocol: Document 01/01/19 11:00 L[facility] (Rec: 01/01/19 16:01 [facility] [id number]) Aquatics Treatment Pool Entry/Exit Pool Entry/Exit Method Stairs Water Walking backward with breast stroke arms Water Level Chest Level Level of Assistance Verbal Cues Comments cues for core stabilization [place] March Water Level Chest Level Comments recip arms with spinal rotation Sideways Water Level Chest Level Comments ab/ad arms Backwards Water Level Chest Level Comments recip arms Forwards Water Level Chest Level Comments recip arms Lower Extremity Exercises hip ab/ad-crossover Body Position Standing Water Level Waist Level Reps/Duration 10x2 bilat hip circumduction Body Position Standing Water Level Waist Level Reps/Duration 10x2 bilat and both dir flex/ext gentle Water Level Chest Level Reps/Duration 10x2 bilat SL flex/ext-with power Body Position Standing Water Level Chest Level Reps/Duration 10 bilat Comments power as tolerated while maintaining stable core Lower Extremity Stretches spiderman with body swing Water Level Neck Level Reps/Duration 3 min Comments various positions HC Body Position Standing Water Level Chest Level Reps/Duration 45x2 Comments bilat hip flexor Body Position Standing Water Level Chest Level Reps/Duration 45x2 Comments bilat quad Details at wall Body Position Standing Water Level Waist Level Equipment Large Noodle Reps/Duration 2x 45 HS Details at wall Body Position Standing Water Level Waist Level Equipment Large Noodle Reps/Duration 2x 45 Comments horiz ab/ad stretch incorporated-bilat Upper Extremity Exercises fl/ex. ab/ad, hor ab/ad Body Position Standing Water Level Chest Level Reps/Duration 10x ea Comments cues for core stab [place] Activities [place] Activities Bicycle,Cross Country,Running, Hip Abduction/Adduction Other Activities 30/15 5 rounds each of running, skiing, biking 60% PRE Equipment belt Duration 10 PT-OP-T Assessment and Plan Start: 12/13/18 09:15 Freq: Status: Active Protocol: Document 02/01/19 14:30 [facility] (Rec: 02/03/19 12:51 [facility] [email or web address]) Physical Therapy Assessment Goals Four Impairment increased pain with running or hiking activities Lead Manufacturing Engineering Tech Goal (LTG) Carisa is educated in aquatic therapy running program that she is able to tolerate without increased pain symptoms GOOD PROGRESS LTG Duration 8 weeks Three Impairment Restricted lumbar spine ROM especially flexion which recreates pain Short Term Goal (STG) Carisa is able to perform lisha pose and cat cow without any increase in pain symptoms into the sacrum and buttocks GOOD PROGRESS STG Duration 4-6 weeks Lead Manufacturing Engineering Tech Goal (LTG) Improve standing lumbar flexion to WFL and without a reproduction in pain symptoms SOME PROGRESS Two Impairment pain rated 5/10 bilateral sacral and buttocks region Lead Manufacturing Engineering Tech Goal (LTG) Carisa reports a overall reduction in pain in the sacral and buttocks region STILL NOTING PAIN SYMPTOMS BUT TOLERATING MORE NOW LTG Duration 8 weeks One Impairment right lateral shift in standing with parapsinal hypertrophy Short Term Goal (STG) Carisa is educated in both prone positioning as well as a lateral shift correction exercise STG Duration 2-3 weeks Retirement Goal (LTG) Carias presents with a reduced lateral shift in standing NO CHANGE LTG Duration 8 weeks Assessment Summary Assessment Carisa is still very tight and guarded in the lumbar parapsinals but not as severe as initial assessment. Carisa has been seen for 7 visits only as her insurance. She has been seen both in the pool and in the clinic. She is feeling like she can exercise in the pool with decreased compression on her spine. We are focusing on spinal stabilization, ROM, and decreasing guarding and spasm in the clinic. Carisa would benefit from continuing PT. Physical Therapy Plan Frequency and Duration Frequency of Treatment 2x/Week Duration of Treatment 8 Plan of Care Start Date 02/01/19 Plan of Care End Date 03/29/19 Therapeutic Interventions Therapeutic Interventions Aquatic Therapy,Home Exercise Program,Manual Therapy, Neuromuscular Re-education, Patient/Caregiver Education, Self-Care/Home Management,Soft Tissue Mobilization, Therapeutic Exercises Next Visit Focus/Plan Next Note Type Treatment Note Next Visit Plan Continue with stretching and strengthening exercises. Address specific exercises for posture and hip stability as well as scoliosis.
--- NOTE | 2019-02-12 14:27 | PT.OTN ---
Current Diagnoses Cervicalgia (02/01/19) Low back pain (02/01/19) Physical Therapy Treatment Note PT-OP-A Visit Information Start: 12/13/18 09:15 Freq: Status: Active Protocol: Document 02/12/19 14:21 [facility] (Rec: 02/12/19 14:27 [facility] [id number]) Out-Patient Physical Therapy Visit Information Visit Information Visit Type Treatment Note Visit Start Time 11:00 Visit Stop Time 11:45 Total Visit Minutes 45 Visit Number 8 Number of MACHINE WEDGER Visits 0 PT-OP-B Current Condition Start: 12/13/18 09:15 Freq: Status: Active Protocol: Document 12/13/18 10:00 [facility] (Rec: 12/18/18 15:04 [facility] [email or web address]) Current Condition History of Current Condition Onset Date 2006 Current Complaints sharp nerve pain into her buttocks, pain with walking and rolling in bed History of Current Condition Ora describes low back pain that began for her in 2006. She has had many trials of pain control including steriod injections, a nerve block and a nerve ablation. Her pain is moderate and constant rated 5/10. She exercises daily at the gym both cardio and weight lifting and she feels this keeps her going. Pain prevents her from walking long distances andfrom sitting more than 1 hour. She has a history of disc injury in her low back and Chron's disease Prior Treatments and Tests nerve blocks, nerve ablation, steriod injections into the SI joint and lumbar spine X-ray reveals grade 1 anterolesthesis L4-5 and degenerative joint disease, mild scolosis Treatment Goals Patient/Caregiver Goals Treatment goals include pain management ideas and aquatic therapy as a means to exercise Current Functional Impairments (Reported) Functional Limitations- ADL's pain prevents Ora from lifting heavy weights off of the floor, walking long distances, sitting more than a hour, standing more than a hour Functional Limitations- Recreation/ has not been able to run due Hobbies to pain PT-OP-C Subjective Start: 12/13/18 09:15 Freq: Status: Active Protocol: Document 02/12/19 14:21 SAK (Rec: 02/12/19 14:27 SAK [id number]) OP-PT Subjective Patient Comments Patient Comments Excited to be back in the pool for aquatic therapy. Has started taking Gabapentin again recently and reports it seems to be helping. Reports decrease in pain with aquatic therapy. PT-OP-F Manual Assessment Start: 12/13/18 09:15 Freq: Status: Active Protocol: Document 12/13/18 10:00 [facility] (Rec: 12/18/18 15:04 [facility] [email or web address]) Manual Assessments Soft Tissue Assessment Soft Tissue Mobility Assessment right>left lumbar paraspinal visable muscle guarding and restrictions PT-OP-J Posture/Palpation/Skin Start: 12/13/18 09:15 Freq: Status: Active Protocol: Document 12/13/18 10:00 [facility] (Rec: 12/18/18 15:04 [facility] [email or web address]) Posture Evaluation Comments Posture Comments pt stands with a right lateral shift and slight scoliosis with curve to the right Palpation Assessment Location One Palpation Location right parapsinals Palpation Findings Soft Tissue Tightness,Spasm, Muscle Guarding,Tenderness PT-OP-K Range of Motion Start: 12/13/18 09:15 Freq: Status: Active Protocol: Document 12/13/18 10:00 [facility] (Rec: 12/18/18 15:04 [facility] [email or web address]) Lumbar Spine Range of Motion Lumbar Spine Active Testing Position Standing Flexion 30 Lateral Flexion Left 15 Lateral Flexion Right 15 ROM Limitations Soft Tissue Tightness,Pain Comments flexion creates increased nerve pain into the sacrum PT-OP-L Special Tests Start: 12/13/18 09:15 Freq: Status: Active Protocol: Document 12/13/18 10:00 [facility] (Rec: 12/18/18 15:04 [facility] [email or web address]) Special Tests Lumbar Spine Special Tests Straight Leg Raise Test Results positive Comments end range only it recreates nerve pain bilaterally PT-OP-M Strength Start: 12/13/18 09:15 Freq: Status: Active Protocol: Document 12/13/18 10:00 [facility] (Rec: 12/18/18 15:04 [facility] [email or web address]) Trunk Strength Trunk Manual Muscle Testing Core Stabilization decreased activation of the transverse abdominal muscles and Ora reports she often feels as if those muscels have gone to sleep Hip Strength Hip Manual Muscle Testing Right Reason Not Measured WFL Knee Strength Knee Manual Muscle Testing Right Reason Not Measured WFL Ankle/Foot Strength Ankle and Foot Manual Muscle Testing Right Reason Not Measured WFL PT-OP-Q Treatments Start: 12/13/18 09:15 Freq: Status: Active Protocol: Document 02/01/19 14:30 [facility] (Rec: 02/03/19 12:51 [facility] [email or web address]) Manual Therapy Treatment Soft Tissue Mobilization 2 Body Location piriformis release bilaterally 1 Body Location right parapsinals and quadratus lumborum Mobilization Type Myofascial Release Intensity/Depth Moderate Body Position Sidelying Comments pt instructed to use a pillow under her left side for sidelying sleeping at home Self-Care/Home Management Treatment Education Patient Education Home Exercise Program Other Education review of home stretches and sleeping positions PT-OP-S Aquatic Treatment Start: 12/22/18 16:50 Freq: Status: Active Protocol: Document 02/12/19 14:21 [facility] (Rec: 02/12/19 14:27 [facility] [id number]) Aquatics Treatment Water Walking backward with breast stroke arms Water Level Chest Level Level of Assistance Verbal Cues Comments cues for core stabilization [place] March Water Level Chest Level Comments recip arms with spinal rotation Sideways Water Level Chest Level Comments ab/ad arms Backwards Water Level Chest Level Comments recip arms Forwards Water Level Chest Level Comments recip arms Lower Extremity Exercises hip circumduction Body Position Standing Water Level Waist Level Reps/Duration 10x2 bilat and both dir flex/ext gentle Water Level Chest Level Reps/Duration 10x2 bilat SL flex/ext-with power Body Position Standing Water Level Chest Level Reps/Duration 10 bilat Comments power as tolerated while maintaining stable core Lower Extremity Stretches spiderman with body swing Water Level Neck Level Reps/Duration 3 min Comments various positions HC Body Position Standing Water Level Chest Level Reps/Duration 45x2 Comments bilat quad Details at wall Body Position Standing Water Level Waist Level Equipment Large Noodle Reps/Duration 2x 45 HS Details at wall Body Position Standing Water Level Waist Level Equipment Large Noodle Reps/Duration 2x 45 Comments horiz ab/ad stretch incorporated-bilat Upper Extremity Exercises UE pull-down Body Position Standing Water Level Chest Level Equipment med barbells Reps/Duration 10x2 [place] Activities [place] Activities Bicycle,Cross Country,Running, Hip Abduction/Adduction Other Activities 30/15 5 rounds each of running, skiing, biking 60% PRE Equipment belt Duration 10 Comments Also backward bicycle with med barbells: 2 min Deep water DLS: med barbells PT-OP-T Assessment and Plan Start: 12/13/18 09:15 Freq: Status: Active Protocol: Document 02/12/19 14:21 [facility] (Rec: 02/12/19 14:27 [facility]AK [id number]) Physical Therapy Assessment Goals Four Impairment increased pain with running or hiking activities Information Resource Consultant Goal (LTG) [place] is educated in aquatic therapy running program that she is able to tolerate without increased pain symptoms GOOD PROGRESS LTG Duration 8 weeks Three Impairment Restricted lumbar spine ROM especially flexion which recreates pain Short Term Goal (STG) Ora is able to perform lisha pose and cat cow without any increase in pain symptoms into the sacrum and buttocks GOOD PROGRESS STG Duration 4-6 weeks Information Resource Consultant Goal (LTG) Improve standing lumbar flexion to WFL and without a reproduction in pain symptoms SOME PROGRESS Two Impairment pain rated 5/10 bilateral sacral and buttocks region [facility] Goal (LTG) Ora reports a overall reduction in pain in the sacral and buttocks region STILL NOTING PAIN SYMPTOMS BUT TOLERATING MORE NOW LTG Duration 8 weeks One Impairment right lateral shift in standing with parapsinal hypertrophy Short Term Goal (STG) Ora is educated in both prone positioning as well as a lateral shift correction exercise STG Duration 2-3 weeks Information Resource Consultant Goal (LTG) Ora presents with a reduced lateral shift in standing NO CHANGE LTG Duration 8 weeks Assessment Summary Assessment Patient reports good benefit from aquatic therapy with decrease in pain. Gabapentin appears to be helpful with decreasing radicular symptoms. Physical Therapy Plan Frequency and Duration Frequency of Treatment 2x/Week Duration of Treatment 8 Plan of Care Start Date 02/01/19 Plan of Care End Date 03/29/19 Therapeutic Interventions Therapeutic Interventions Aquatic Therapy,Home Exercise Program,Manual Therapy, Neuromuscular Re-education, Patient/Caregiver Education, Self-Care/Home Management,Soft Tissue Mobilization, Therapeutic Exercises Next Visit Focus/Plan Next Note Type Treatment Note Next Visit Plan Continue PT per POC
--- NOTE | 2019-02-21 15:21 | PT.OTN ---
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 She has had many trials of pain control including steriod injections, a nerve block and a nerve ablation. Her pain is moderate and constant rated 5/10. She exercises daily at the gym both cardio and weight lifting and she feels this keeps her going. Pain prevents her from walking long distances andfrom sitting more than 1 hour. She has a history of disc injury in her low back and Chron's disease Prior Treatments and Tests nerve blocks, nerve ablation, steriod injections into the SI joint and lumbar spine X-ray reveals grade 1 anterolesthesis L4-5 and degenerative joint disease, mild scolosis Treatment Goals Patient/Caregiver Goals Treatment goals include pain management ideas and aquatic therapy as a means to exercise Current Functional Impairments (Reported) Functional Limitations- ADL's pain prevents Ora from lifting heavy weights off of the floor, walking long distances, sitting more than a hour, standing more than a hour Functional Limitations- Recreation/ has not been able to run due Hobbies to pain PT-OP-C Subjective Start: 12/13/18 09:15 Freq: Status: Active Protocol: Document 02/21/19 11:45 LJ (Rec: 02/21/19 15:21 LJ [id number]) OP-PT Subjective Patient Comments Patient Comments Pt states she has been feeling better after increasing dosage of gabapentin. Currently has no pain and has already done a cardio workout this am. PT-OP-F Manual Assessment Start: 12/13/18 09:15 Freq: Status: Active Protocol: Document 12/13/18 10:00 AMH (Rec: 12/18/18 15:04 AMH [email or web address]) Manual Assessments Soft Tissue Assessment Soft Tissue Mobility Assessment right>left lumbar paraspinal visable muscle guarding and restrictions PT-OP-J Posture/Palpation/Skin Start: 12/13/18 09:15 Freq: Status: Active Protocol: Document 12/13/18 10:00 AMH (Rec: 12/18/18 15:04 AMH [email or web address]) Posture Evaluation Comments Posture Comments pt stands with a right lateral shift and slight scoliosis with curve to the right Palpation Assessment Location One Palpation Location right parapsinals Palpation Findings Soft Tissue Tightness,Spasm, Muscle Guarding,Tenderness PT-OP-K Range of Motion Start: 12/13/18 09:15 Freq: Status: Active Protocol: Document 12/13/18 10:00 AMH (Rec: 12/18/18 15:04 AMH [email or web address]) Lumbar Spine Range of Motion Lumbar Spine Active Testing Position Standing Flexion 30 Lateral Flexion Left 15 Lateral Flexion Right 15 ROM Limitations Soft Tissue Tightness,Pain Comments flexion creates increased nerve pain into the sacrum PT-OP-L Special Tests Start: 12/13/18 09:15 Freq: Status: Active Protocol: Document 12/13/18 10:00 AMH (Rec: 12/18/18 15:04 AMH [email or web address]) Special Tests Lumbar Spine Special Tests Straight Leg Raise Test Results positive Comments end range only it recreates nerve pain bilaterally PT-OP-M Strength Start: 12/13/18 09:15 Freq: Status: Active Protocol: Document 12/13/18 10:00 AMH (Rec: 12/18/18 15:04 AMH [email or web address]) Trunk Strength Trunk Manual Muscle Testing Core Stabilization decreased activation of the transverse abdominal muscles and Ora reports she often feels as if those muscels have gone to sleep Hip Strength Hip Manual Muscle Testing Right Reason Not Measured WFL Knee Strength Knee Manual Muscle Testing Right Reason Not Measured WFL Ankle/Foot Strength Ankle and Foot Manual Muscle Testing Right Reason Not Measured WFL PT-OP-Q Treatments Start: 12/13/18 09:15 Freq: Status: Active Protocol: Document 02/01/19 14:30 AMH (Rec: 02/03/19 12:51 AMH [email or web address]) Manual Therapy Treatment Soft Tissue Mobilization 2 Body Location piriformis release bilaterally 1 Body Location right parapsinals and quadratus lumborum Mobilization Type Myofascial Release Intensity/Depth Moderate Body Position Sidelying Comments pt instructed to use a pillow under her left side for sidelying sleeping at home Self-Care/Home Management Treatment Education Patient Education Home Exercise Program Other Education review of home stretches and sleeping positions PT-OP-S Aquatic Treatment Start: 12/22/18 16:50 Freq: Status: Active Protocol: Document 02/21/19 11:45 LJ (Rec: 02/21/19 15:21 LJ [id number]) Aquatics Treatment Water Walking circumduction-forward and backward Water Level Chest Level Walking Equipment Resistance Fins Comments cues for core stab backward with breast stroke arms Water Level Chest Level Walking Equipment Resistance Fins Level of Assistance Verbal Cues Comments cues for core stabilization Burnet March Water Level Chest Level Walking Equipment Resistance Fins Comments recip arms with spinal rotation Sideways Water Level Chest Level Walking Equipment Resistance Fins Comments ab/ad arms Forwards Water Level Chest Level Walking Equipment Resistance Fins Comments recip arms Lower Extremity Exercises hip extension-on box Details standing on box for foot clearance Water Level Waist Level Equipment Resistance Fins Reps/Duration 2x15 bilat Comments cues for level pelvis Lower Extremity Stretches spiderman with body swing Water Level Neck Level Reps/Duration 3 min Comments various positions HC Body Position Standing Water Level Chest Level Reps/Duration 45x2 Comments bilat quad Details at wall Body Position Standing Water Level Waist Level Equipment Large Noodle Reps/Duration 2x 45 HS Details at wall Body Position Standing Water Level Waist Level Equipment Large Noodle Reps/Duration 2x 45 Comments horiz ab/ad stretch incorporated-bilat Upper Extremity Exercises fl/ex. ab/ad, hor ab/ad Body Position Standing Water Level Chest Level Reps/Duration 10x ea Comments cues for core stab Spinal Exercises stretch cords - walking Details cord around waist Body Position Standing Water Level Waist Level Reps/Duration 4x2 steps each dir Comments step forward and backward strtetch cords - squat stabilization Details cord around waist Water Level Chest Level Reps/Duration 10 Comments facing both directions [place] Activities [place] Activities Cross [place] Other Activities pendulum single arm adduction w/BB bilateral PT-OP-T Assessment and Plan Start: 12/13/18 09:15 Freq: Status: Active Protocol: Document 02/21/19 11:45 WILLIAN (Rec: 02/21/19 15:21 LJ [id number]) Physical Therapy Assessment Goals Four Impairment increased pain with running or hiking activities Emt Basic Goal (LTG) Ornasreen is educated in aquatic therapy running program that she is able to tolerate without increased pain symptoms GOOD PROGRESS LTG Duration 8 weeks Three Impairment Restricted lumbar spine ROM especially flexion which recreates pain Short Term Goal (STG) Ornasreen is able to perform lisha pose and cat cow without any increase in pain symptoms into the sacrum and buttocks GOOD PROGRESS STG Duration 4-6 weeks Long-Term Goal (LTG) Improve standing lumbar flexion to WFL and without a reproduction in pain symptoms SOME PROGRESS Two Impairment pain rated 5/10 bilateral sacral and buttocks region Emt Basic Goal (LTG) Ora reports a overall reduction in pain in the sacral and buttocks region STILL NOTING PAIN SYMPTOMS BUT TOLERATING MORE NOW LTG Duration 8 weeks One Impairment right lateral shift in standing with parapsinal hypertrophy Short Term Goal (STG) Ora is educated in both prone positioning as well as a lateral shift correction exercise STG Duration 2-3 weeks Emt Basic Goal (LTG) Ora presents with a reduced lateral shift in standing NO CHANGE LTG Duration 8 weeks Assessment Summary Assessment Pt reports feeling like her core has gotten a good workout with the stabilization exercises using stretch cords. No increase in pain with all exericises Physical Therapy Plan Frequency and Duration Frequency of Treatment 2x/Week Duration of Treatment 8 Plan of Care Start Date 02/01/19 Plan of Care End Date 03/29/19 Therapeutic Interventions Therapeutic Interventions Aquatic Therapy,Home Exercise Program,Manual Therapy, Neuromuscular Re-education, Patient/Caregiver Education, Self-Care/Home Management,Soft Tissue Mobilization, Therapeutic Exercises Next Visit Focus/Plan Next Note Type Treatment Note Next Visit Plan Continue PT per POC
--- NOTE | 2019-02-26 15:02 | PT.OTN ---
Current Diagnoses Cervicalgia (02/21/19) Low back pain (02/21/19) Physical Therapy Treatment Note PT-OP-A Visit Information Start: 12/13/18 09:15 Freq: Status: Active Protocol: Document 02/26/19 12:30 LJ (Rec: 02/26/19 15:02 LJ [email or web address]) Out-Patient Physical Therapy Visit Information Visit Information Visit Type Aquatic Treatment Note Visit Start Time 12:30 Visit Stop Time 13:15 Total Visit Minutes 45 Visit Number 10 Number of RN LAB Visits 2 PT-OP-B Current Condition Start: 12/13/18 09:15 Freq: Status: Active Protocol: Document 12/13/18 10:00 AMH (Rec: 12/18/18 15:04 AMH [email or web address]) Current Condition History of Current Condition Onset Date 2006 Current Complaints sharp nerve pain into her buttocks, pain with walking and rolling in bed History of Current Condition Ora describes low back pain that began for her in 2006. She has had many trials of pain control including steriod injections, a nerve block and a nerve ablation. Her pain is moderate and constant rated 5/10. She exercises daily at the gym both cardio and weight lifting and she feels this keeps her going. Pain prevents her from walking long distances andfrom sitting more than 1 hour. She has a history of disc injury in her low back and Chron's disease Prior Treatments and Tests nerve blocks, nerve ablation, steriod injections into the SI joint and lumbar spine X-ray reveals grade 1 anterolesthesis L4-5 and degenerative joint disease, mild scolosis Treatment Goals Patient/Caregiver Goals Treatment goals include pain management ideas and aquatic therapy as a means to exercise Current Functional Impairments (Reported) Functional Limitations- ADL's pain prevents Ora from lifting heavy weights off of the floor, walking long distances, sitting more than a hour, standing more than a hour Functional Limitations- Recreation/ has not been able to run due Hobbies to pain PT-OP-C Subjective Start: 12/13/18 09:15 Freq: Status: Active Protocol: Document 02/26/19 12:30 LJ (Rec: 02/26/19 15:02 LJ [email or web address]) OP-PT Subjective Patient Comments Patient Comments Pt states she is having less pain and feels she is about 30%-70% pain vs no pain. PT-OP-F Manual Assessment Start: 12/13/18 09:15 Freq: Status: Active Protocol: Document 12/13/18 10:00 AMH (Rec: 12/18/18 15:04 AMH [email or web address]) Manual Assessments Soft Tissue Assessment Soft Tissue Mobility Assessment right>left lumbar paraspinal visable muscle guarding and restrictions PT-OP-J Posture/Palpation/Skin Start: 12/13/18 09:15 Freq: Status: Active Protocol: Document 12/13/18 10:00 AMH (Rec: 12/18/18 15:04 AMH [email or web address]) Posture Evaluation Comments Posture Comments pt stands with a right lateral shift and slight scoliosis with curve to the right Palpation Assessment Location One Palpation Location right parapsinals Palpation Findings Soft Tissue Tightness,Spasm, Muscle Guarding,Tenderness PT-OP-K Range of Motion Start: 12/13/18 09:15 Freq: Status: Active Protocol: Document 12/13/18 10:00 AMH (Rec: 12/18/18 15:04 AMH [email or web address]) Lumbar Spine Range of Motion Lumbar Spine Active Testing Position Standing Flexion 30 Lateral Flexion Left 15 Lateral Flexion Right 15 ROM Limitations Soft Tissue Tightness,Pain Comments flexion creates increased nerve pain into the sacrum PT-OP-L Special Tests Start: 12/13/18 09:15 Freq: Status: Active Protocol: Document 12/13/18 10:00 AMH (Rec: 12/18/18 15:04 AMH [email or web address]) Special Tests Lumbar Spine Special Tests Straight Leg Raise Test Results positive Comments end range only it recreates nerve pain bilaterally PT-OP-M Strength Start: 12/13/18 09:15 Freq: Status: Active Protocol: Document 12/13/18 10:00 AMH (Rec: 12/18/18 15:04 AMH [email or web address]) Trunk Strength Trunk Manual Muscle Testing Core Stabilization decreased activation of the transverse abdominal muscles and Ora reports she often feels as if those muscels have gone to sleep Hip Strength Hip Manual Muscle Testing Right Reason Not Measured WFL Knee Strength Knee Manual Muscle Testing Right Reason Not Measured WFL Ankle/Foot Strength Ankle and Foot Manual Muscle Testing Right Reason Not Measured WFL PT-OP-Q Treatments Start: 12/13/18 09:15 Freq: Status: Active Protocol: Document 02/01/19 14:30 AMH (Rec: 02/03/19 12:51 AMH [email or web address]) Manual Therapy Treatment Soft Tissue Mobilization 2 Body Location piriformis release bilaterally 1 Body Location right parapsinals and quadratus lumborum Mobilization Type Myofascial Release Intensity/Depth Moderate Body Position Sidelying Comments pt instructed to use a pillow under her left side for sidelying sleeping at home Self-Care/Home Management Treatment Education Patient Education Home Exercise Program Other Education review of home stretches and sleeping positions PT-OP-S Aquatic Treatment Start: 12/22/18 16:50 Freq: Status: Active Protocol: Document 02/26/19 12:30 LJ (Rec: 02/26/19 15:02 LJ [email or web address]) Aquatics Treatment Water Walking forward with UE paddles Comments alternating arms for spinal stability backward with breast stroke arms Water Level Chest Level Walking Equipment Resistance Fins Level of Assistance Verbal Cues Comments cues for core stabilization Emmet March Water Level Chest Level Walking Equipment Resistance Fins Comments recip arms with spinal rotation Sideways Water Level Chest Level Walking Equipment Resistance Fins Comments ab/ad arms Backwards Water Level Chest Level Comments recip arms Forwards Water Level Chest Level Walking Equipment Resistance Fins Comments recip arms Lower Extremity Exercises hip extension-on box Details standing on box for foot clearance Water Level Waist Level Equipment Resistance Fins Reps/Duration 2x15 bilat Comments cues for level pelvis hip circumduction Body Position Standing Water Level Waist Level Reps/Duration 10x2 bilat and both dir Lower Extremity Stretches spiderman with body swing Water Level Neck Level Reps/Duration 3 min Comments various positions HC Body Position Standing Water Level Chest Level Reps/Duration 45x2 Comments bilat hip flexor Body Position Standing Water Level Chest Level Reps/Duration 45x2 Comments bilat quad Details at wall Body Position Standing Water Level Waist Level Equipment Large Noodle Reps/Duration 2x 45 HS Details at wall Body Position Standing Water Level Waist Level Equipment Large Noodle Reps/Duration 2x 45 Comments horiz ab/ad stretch incorporated-bilat Upper Extremity Exercises UE pull-down Body Position Standing Water Level Chest Level Equipment med barbells Reps/Duration 10x2 fl/ex. ab/ad, hor ab/ad Body Position Standing Water Level Chest Level Reps/Duration 10x ea Comments cues for core stab [place] Activities [place] Activities Bicycle,Bicycle Backwards, Cross Country,Running,Hip Abduction/Adduction Comments Deep water DLS: med barbells PT-OP-T Assessment and Plan Start: 12/13/18 09:15 Freq: Status: Active Protocol: Document 02/26/19 12:30 WILLIAN (Rec: 02/26/19 15:02 LJ [email or web address]) Physical Therapy Assessment Goals Four Impairment increased pain with running or hiking activities Snf Goal (LTG) Carisa is educated in aquatic therapy running program that she is able to tolerate without increased pain symptoms GOOD PROGRESS LTG Duration 8 weeks Three Impairment Restricted lumbar spine ROM especially flexion which recreates pain Short Term Goal (STG) Ornasreen is able to perform lisha pose and cat cow without any increase in pain symptoms into the sacrum and buttocks GOOD PROGRESS STG Duration 4-6 weeks Studio Producer Goal (LTG) Improve standing lumbar flexion to WFL and without a reproduction in pain symptoms SOME PROGRESS Two Impairment pain rated 5/10 bilateral sacral and buttocks region Studio Producer Goal (LTG) Ornasreen reports a overall reduction in pain in the sacral and buttocks region STILL NOTING PAIN SYMPTOMS BUT TOLERATING MORE NOW LTG Duration 8 weeks One Impairment right lateral shift in standing with parapsinal hypertrophy Short Term Goal (STG) Ornasreen is educated in both prone positioning as well as a lateral shift correction exercise STG Duration 2-3 weeks Studio Producer Goal (LTG) Ornasreen presents with a reduced lateral shift in standing NO CHANGE LTG Duration 8 weeks Assessment Summary Assessment Pt is happy with the aquatic program and has seen a reduction in pain. She has not had any increase in pain with pool therapy Physical Therapy Plan Frequency and Duration Frequency of Treatment 2x/Week Duration of Treatment 8 Plan of Care Start Date 02/01/19 Plan of Care End Date 03/29/19 Therapeutic Interventions Therapeutic Interventions Aquatic Therapy,Home Exercise Program,Manual Therapy, Neuromuscular Re-education, Patient/Caregiver Education, Self-Care/Home Management,Soft Tissue Mobilization, Therapeutic Exercises Next Visit Focus/Plan Next Note Type Treatment Note Next Visit Plan Continue PT per POC
--- NOTE | 2019-03-05 12:30 | PT.OTN ---
Current Diagnoses Cervicalgia (03/05/19) Low back pain (03/05/19) Physical Therapy Treatment Note PT-OP-A Visit Information Start: 12/13/18 09:15 Freq: Status: Active Protocol: Document 03/05/19 12:30 SAK (Rec: 03/06/19 17:07 SAK [id number]) Out-Patient Physical Therapy Visit Information Visit Information Visit Type Aquatic Treatment Note Visit Start Time 12:30 Visit Stop Time 13:15 Total Visit Minutes 45 Visit Number 11 Number of SENIOR SQL DATABASE DEVELOPER Visits 0 PT-OP-B Current Condition Start: 12/13/18 09:15 Freq: Status: Active Protocol: Document 12/13/18 10:00 AMH (Rec: 12/18/18 15:04 AMH [email or web address]) Current Condition History of Current Condition Onset Date 2006 Current Complaints sharp nerve pain into her buttocks, pain with walking and rolling in bed History of Current Condition Ora describes low back pain that began for her in 2006. She has had many trials of pain control including steriod injections, a nerve block and a nerve ablation. Her pain is moderate and constant rated 5/10. She exercises daily at the gym both cardio and weight lifting and she feels this keeps her going. Pain prevents her from walking long distances andfrom sitting more than 1 hour. She has a history of disc injury in her low back and Chron's disease Prior Treatments and Tests nerve blocks, nerve ablation, steriod injections into the SI joint and lumbar spine X-ray reveals grade 1 anterolesthesis L4-5 and degenerative joint disease, mild scolosis Treatment Goals Patient/Caregiver Goals Treatment goals include pain management ideas and aquatic therapy as a means to exercise Current Functional Impairments (Reported) Functional Limitations- ADL's pain prevents Ora from lifting heavy weights off of the floor, walking long distances, sitting more than a hour, standing more than a hour Functional Limitations- Recreation/ has not been able to run due Hobbies to pain PT-OP-C Subjective Start: 12/13/18 09:15 Freq: Status: Active Protocol: Document 02/26/19 12:30 LJ (Rec: 02/26/19 15:02 LJ [email or web address]) OP-PT Subjective Patient Comments Patient Comments Pt states she is having less pain and feels she is about 30%-70% pain vs no pain. PT-OP-F Manual Assessment Start: 12/13/18 09:15 Freq: Status: Active Protocol: Document 12/13/18 10:00 AMH (Rec: 12/18/18 15:04 AMH [email or web address]) Manual Assessments Soft Tissue Assessment Soft Tissue Mobility Assessment right>left lumbar paraspinal visable muscle guarding and restrictions PT-OP-J Posture/Palpation/Skin Start: 12/13/18 09:15 Freq: Status: Active Protocol: Document 12/13/18 10:00 AMH (Rec: 12/18/18 15:04 AMH [email or web address]) Posture Evaluation Comments Posture Comments pt stands with a right lateral shift and slight scoliosis with curve to the right Palpation Assessment Location One Palpation Location right parapsinals Palpation Findings Soft Tissue Tightness,Spasm, Muscle Guarding,Tenderness PT-OP-K Range of Motion Start: 12/13/18 09:15 Freq: Status: Active Protocol: Document 12/13/18 10:00 AMH (Rec: 12/18/18 15:04 AMH [email or web address]) Lumbar Spine Range of Motion Lumbar Spine Active Testing Position Standing Flexion 30 Lateral Flexion Left 15 Lateral Flexion Right 15 ROM Limitations Soft Tissue Tightness,Pain Comments flexion creates increased nerve pain into the sacrum PT-OP-L Special Tests Start: 12/13/18 09:15 Freq: Status: Active Protocol: Document 12/13/18 10:00 AMH (Rec: 12/18/18 15:04 AMH [email or web address]) Special Tests Lumbar Spine Special Tests Straight Leg Raise Test Results positive Comments end range only it recreates nerve pain bilaterally PT-OP-M Strength Start: 12/13/18 09:15 Freq: Status: Active Protocol: Document 12/13/18 10:00 AMH (Rec: 12/18/18 15:04 AMH [email or web address]) Trunk Strength Trunk Manual Muscle Testing Core Stabilization decreased activation of the transverse abdominal muscles and Ora reports she often feels as if those muscels have gone to sleep Hip Strength Hip Manual Muscle Testing Right Reason Not Measured WFL Knee Strength Knee Manual Muscle Testing Right Reason Not Measured WFL Ankle/Foot Strength Ankle and Foot Manual Muscle Testing Right Reason Not Measured WFL PT-OP-Q Treatments Start: 12/13/18 09:15 Freq: Status: Active Protocol: Document 02/01/19 14:30 AMH (Rec: 02/03/19 12:51 AMH [email or web address]) Manual Therapy Treatment Soft Tissue Mobilization 2 Body Location piriformis release bilaterally 1 Body Location right parapsinals and quadratus lumborum Mobilization Type Myofascial Release Intensity/Depth Moderate Body Position Sidelying Comments pt instructed to use a pillow under her left side for sidelying sleeping at home Self-Care/Home Management Treatment Education Patient Education Home Exercise Program Other Education review of home stretches and sleeping positions PT-OP-S Aquatic Treatment Start: 12/22/18 16:50 Freq: Status: Active Protocol: Document 03/05/19 12:30 SAK (Rec: 03/06/19 17:07 [facility] [id number]) Aquatics Treatment Water Walking forward with UE paddles Comments alternating arms for spinal stability [place] Water Level Chest Level Walking Equipment Resistance Fins Comments recip arms with spinal rotation Sideways Water Level Chest Level Walking Equipment Resistance Fins Comments hor ab/ad UE's Backwards Water Level Chest Level Comments arms at sides for drag Forwards Water Level Chest Level Walking Equipment Resistance Fins Comments arms at sides for drag Lower Extremity Exercises hip circumduction Body Position Standing Water Level Waist Level Reps/Duration 10x2 bilat and both dir Lower Extremity Stretches spiderman with body swing Water Level Neck Level Reps/Duration 3 min Comments various positions hip flexor Body Position Standing Water Level Chest Level Reps/Duration 45x2 Comments bilat quad Details at wall Body Position Standing Water Level Waist Level Equipment Large Noodle Reps/Duration 2x 45 HS Details at wall Body Position Standing Water Level Waist Level Equipment Large Noodle Reps/Duration 2x 45 Comments horiz ab/ad stretch incorporated-bilat Upper Extremity Exercises UE pull-down Body Position Standing Water Level Chest Level Equipment med barbells Reps/Duration 10x2 fl/ex. ab/ad, hor ab/ad Body Position Standing Water Level Chest Level Reps/Duration 10x ea Comments cues for core stab [place] Activities [place] Activities Bicycle,Bicycle Backwards, Cross Country,Running,Hip Abduction/Adduction Other Activities Running with med barbells submerged at sides Comments Deep water DLS: med barbells PT-OP-T Assessment and Plan Start: 12/13/18 09:15 Freq: Status: Active Protocol: Document 03/05/19 12:30 SAK (Rec: 03/06/19 17:07 [facility] [id number]) Physical Therapy Assessment Goals Four Impairment increased pain with running or hiking activities Half-Way Goal (LTG) Ornasreen is educated in aquatic therapy running program that she is able to tolerate without increased pain symptoms GOOD PROGRESS LTG Duration 8 weeks Three Impairment Restricted lumbar spine ROM especially flexion which recreates pain Short Term Goal (STG) Ora is able to perform lisha pose and cat cow without any increase in pain symptoms into the sacrum and buttocks GOOD PROGRESS STG Duration 4-6 weeks Manager Technical Support Goal (LTG) Improve standing lumbar flexion to WFL and without a reproduction in pain symptoms SOME PROGRESS Two Impairment pain rated 5/10 bilateral sacral and buttocks region Manager Technical Support Goal (LTG) Ora reports a overall reduction in pain in the sacral and buttocks region STILL NOTING PAIN SYMPTOMS BUT TOLERATING MORE NOW LTG Duration 8 weeks One Impairment right lateral shift in standing with parapsinal hypertrophy Short Term Goal (STG) Ornasreen is educated in both prone positioning as well as a lateral shift correction exercise STG Duration 2-3 weeks Manager Technical Support Goal (LTG) Ora presents with a reduced lateral shift in standing NO CHANGE LTG Duration 8 weeks Assessment Summary Assessment Patient continues to tolerate aquatic therapy well with overall decrease in pain. Cues for postural alignment and core stabilizaation with all aquatic ex though demonstrating improved ability to self correct. Physical Therapy Plan Frequency and Duration Frequency of Treatment 2x/Week Duration of Treatment 8 Plan of Care Start Date 02/01/19 Plan of Care End Date 03/29/19 Therapeutic Interventions Therapeutic Interventions Aquatic Therapy,Home Exercise Program,Manual Therapy, Neuromuscular Re-education, Patient/Caregiver Education, Self-Care/Home Management,Soft Tissue Mobilization, Therapeutic Exercises Next Visit Focus/Plan Next Note Type Treatment Note Next Visit Plan Continue combination aquatic and land-based PT for strengthening, core stabilization. Try running in shallow water if tolerated, wearing water shoes.
--- NOTE | 2019-03-12 13:36 | PT.OTN ---
Current Diagnoses Cervicalgia (03/05/19) Low back pain (03/05/19) Physical Therapy Treatment Note PT-OP-A Visit Information Start: 12/13/18 09:15 Freq: Status: Active Protocol: Document 03/12/19 11:00 LJ (Rec: 03/12/19 13:36 LJ [email or web address]) Out-Patient Physical Therapy Visit Information Visit Information Visit Type Aquatic Treatment Note Visit Start Time 11:00 Visit Stop Time 11:45 Total Visit Minutes 45 Visit Number 12 Number of CPR INSTRUCTOR Visits 1 PT-OP-B Current Condition Start: 12/13/18 09:15 Freq: Status: Active Protocol: Document 12/13/18 10:00 AMH (Rec: 12/18/18 15:04 AMH [email or web address]) Current Condition History of Current Condition Onset Date 2006 Current Complaints sharp nerve pain into her buttocks, pain with walking and rolling in bed History of Current Condition Ora describes low back pain that began for her in 2006. She has had many trials of pain control including steriod injections, a nerve block and a nerve ablation. Her pain is moderate and constant rated 5/10. She exercises daily at the gym both cardio and weight lifting and she feels this keeps her going. Pain prevents her from walking long distances andfrom sitting more than 1 hour. She has a history of disc injury in her low back and Chron's disease Prior Treatments and Tests nerve blocks, nerve ablation, steriod injections into the SI joint and lumbar spine X-ray reveals grade 1 anterolesthesis L4-5 and degenerative joint disease, mild scolosis Treatment Goals Patient/Caregiver Goals Treatment goals include pain management ideas and aquatic therapy as a means to exercise Current Functional Impairments (Reported) Functional Limitations- ADL's pain prevents Ora from lifting heavy weights off of the floor, walking long distances, sitting more than a hour, standing more than a hour Functional Limitations- Recreation/ has not been able to run due Hobbies to pain PT-OP-C Subjective Start: 12/13/18 09:15 Freq: Status: Active Protocol: Document 03/12/19 11:00 LJ (Rec: 03/12/19 13:36 LJ [email or web address]) OP-PT Subjective Patient Comments Patient Comments Still having tightness and aching but no sciatic pain for several days PT-OP-F Manual Assessment Start: 12/13/18 09:15 Freq: Status: Active Protocol: Document 12/13/18 10:00 AMH (Rec: 12/18/18 15:04 AMH [email or web address]) Manual Assessments Soft Tissue Assessment Soft Tissue Mobility Assessment right>left lumbar paraspinal visable muscle guarding and restrictions PT-OP-J Posture/Palpation/Skin Start: 12/13/18 09:15 Freq: Status: Active Protocol: Document 12/13/18 10:00 AMH (Rec: 12/18/18 15:04 AMH [email or web address]) Posture Evaluation Comments Posture Comments pt stands with a right lateral shift and slight scoliosis with curve to the right Palpation Assessment Location One Palpation Location right parapsinals Palpation Findings Soft Tissue Tightness,Spasm, Muscle Guarding,Tenderness PT-OP-K Range of Motion Start: 12/13/18 09:15 Freq: Status: Active Protocol: Document 12/13/18 10:00 AMH (Rec: 12/18/18 15:04 AMH [email or web address]) Lumbar Spine Range of Motion Lumbar Spine Active Testing Position Standing Flexion 30 Lateral Flexion Left 15 Lateral Flexion Right 15 ROM Limitations Soft Tissue Tightness,Pain Comments flexion creates increased nerve pain into the sacrum PT-OP-L Special Tests Start: 12/13/18 09:15 Freq: Status: Active Protocol: Document 12/13/18 10:00 AMH (Rec: 12/18/18 15:04 AMH [email or web address]) Special Tests Lumbar Spine Special Tests Straight Leg Raise Test Results positive Comments end range only it recreates nerve pain bilaterally PT-OP-M Strength Start: 12/13/18 09:15 Freq: Status: Active Protocol: Document 12/13/18 10:00 AMH (Rec: 12/18/18 15:04 AMH [email or web address]) Trunk Strength Trunk Manual Muscle Testing Core Stabilization decreased activation of the transverse abdominal muscles and Ora reports she often feels as if those muscels have gone to sleep Hip Strength Hip Manual Muscle Testing Right Reason Not Measured WFL Knee Strength Knee Manual Muscle Testing Right Reason Not Measured WFL Ankle/Foot Strength Ankle and Foot Manual Muscle Testing Right Reason Not Measured WFL PT-OP-Q Treatments Start: 12/13/18 09:15 Freq: Status: Active Protocol: Document 02/01/19 14:30 AMH (Rec: 02/03/19 12:51 AMH [email or web address]) Manual Therapy Treatment Soft Tissue Mobilization 2 Body Location piriformis release bilaterally 1 Body Location right parapsinals and quadratus lumborum Mobilization Type Myofascial Release Intensity/Depth Moderate Body Position Sidelying Comments pt instructed to use a pillow under her left side for sidelying sleeping at home Self-Care/Home Management Treatment Education Patient Education Home Exercise Program Other Education review of home stretches and sleeping positions PT-OP-S Aquatic Treatment Start: 12/22/18 16:50 Freq: Status: Active Protocol: Document 03/12/19 11:00 WILLIAN (Rec: 03/12/19 13:36 [email or web address]) Aquatics Treatment Pool Entry/Exit Pool Entry/Exit Method Stairs Water Walking backward with breast stroke arms Water Level Chest Level Walking Equipment Resistance Fins Level of Assistance Verbal Cues Comments cues for core stabilization [place] Water Level Chest Level Comments recip arms with spinal rotation Sideways Water Level Chest Level Comments hor ab/ad UE's Backwards Water Level Chest Level Comments arms at sides for drag Lower Extremity Stretches lateral trunk and QL Body Position Standing Water Level Waist Level Reps/Duration 45 x2 bilateral spiderman with body swing Water Level Neck Level Reps/Duration 3 min Comments various positions HC Body Position Standing Water Level Chest Level Reps/Duration 45x2 Comments bilat Spinal Exercises stretch cords - walking Details cord around waist Body Position Standing Water Level Waist Level Reps/Duration 4x2 steps each dir Comments step forward and backward strtetch cords - squat stabilization Details cord around waist Water Level Chest Level Reps/Duration 10 [place] Activities [place] Activities Bicycle,Cross Country Other Activities Running with med barbells submerged at sides Planks w/perturbation rotary ski vertizontal ski T hang w/uni and bilat pull downs PT-OP-T Assessment and Plan Start: 12/13/18 09:15 Freq: Status: Active Protocol: Document 03/12/19 11:00 WILLIAN (Rec: 03/12/19 13:36 [email or web address]) Physical Therapy Assessment Goals Four Impairment increased pain with running or hiking activities Mcc Goal (LTG) Ornasreen is educated in aquatic therapy running program that she is able to tolerate without increased pain symptoms GOOD PROGRESS LTG Duration 8 weeks Three Impairment Restricted lumbar spine ROM especially flexion which recreates pain Short Term Goal (STG) Ora is able to perform lisha pose and cat cow without any increase in pain symptoms into the sacrum and buttocks GOOD PROGRESS STG Duration 4-6 weeks Mcc Goal (LTG) Improve standing lumbar flexion to WFL and without a reproduction in pain symptoms SOME PROGRESS Two Impairment pain rated 5/10 bilateral sacral and buttocks region Radiologic Technology Teacher Goal (LTG) Ora reports a overall reduction in pain in the sacral and buttocks region STILL NOTING PAIN SYMPTOMS BUT TOLERATING MORE NOW LTG Duration 8 weeks One Impairment right lateral shift in standing with parapsinal hypertrophy Short Term Goal (STG) Ora is educated in both prone positioning as well as a lateral shift correction exercise STG Duration 2-3 weeks Mcc Goal (LTG) Ora presents with a reduced lateral shift in standing NO CHANGE LTG Duration 8 weeks Assessment Summary Assessment Pt tolerated stabilization exercises in deep water. Improving with core involvement being able to stabilize and maintain positioning in deep water. Physical Therapy Plan Frequency and Duration Frequency of Treatment 2x/Week Duration of Treatment 8 Plan of Care Start Date 02/01/19 Plan of Care End Date 03/29/19 Therapeutic Interventions Therapeutic Interventions Aquatic Therapy,Home Exercise Program,Manual Therapy, Neuromuscular Re-education, Patient/Caregiver Education, Self-Care/Home Management,Soft Tissue Mobilization, Therapeutic Exercises Next Visit Focus/Plan Next Note Type Treatment Note Next Visit Plan Continue combination aquatic and land-based PT for strengthening, core stabilization. Try running in shallow water if tolerated, wearing water shoes.
--- NOTE | 2019-03-20 17:39 | PT.OTN ---
Current Diagnoses Cervicalgia (03/20/19) Low back pain (03/20/19) Physical Therapy Treatment Note PT-OP-A Visit Information Start: 12/13/18 09:15 Freq: Status: Active Protocol: Document 03/20/19 17:27 [facility] (Rec: 03/20/19 17:33 [facility] [email or web address]) Out-Patient Physical Therapy Visit Information Visit Information Visit Type Progress Note Visit Start Time 16:00 Visit Stop Time 16:45 Total Visit Minutes 45 Visit Number 13 Number of CURTAIN INSPECTOR Visits 0 PT-OP-B Current Condition Start: 12/13/18 09:15 Freq: Status: Active Protocol: Document 12/13/18 10:00 [facility] (Rec: 12/18/18 15:04 [facility] [email or web address]) Current Condition History of Current Condition Onset Date 2006 Current Complaints sharp nerve pain into her buttocks, pain with walking and rolling in bed History of Current Condition Ora describes low back pain that began for her in 2006. She has had many trials of pain control including steriod injections, a nerve block and a nerve ablation. Her pain is moderate and constant rated 5/10. She exercises daily at the gym both cardio and weight lifting and she feels this keeps her going. Pain prevents her from walking long distances andfrom sitting more than 1 hour. She has a history of disc injury in her low back and Chron's disease Prior Treatments and Tests nerve blocks, nerve ablation, steriod injections into the SI joint and lumbar spine X-ray reveals grade 1 anterolesthesis L4-5 and degenerative joint disease, mild scolosis Treatment Goals Patient/Caregiver Goals Treatment goals include pain management ideas and aquatic therapy as a means to exercise Current Functional Impairments (Reported) Functional Limitations- ADL's pain prevents Ora from lifting heavy weights off of the floor, walking long distances, sitting more than a hour, standing more than a hour Functional Limitations- Recreation/ has not been able to run due Hobbies to pain PT-OP-C Subjective Start: 12/13/18 09:15 Freq: Status: Active Protocol: Document 03/20/19 17:27 [facility] (Rec: 03/20/19 17:33 [facility] [email or web address]) OP-PT Subjective Patient Comments Patient Comments pt reports that she has had overall complaints of pain and decreased nerve pain . She is really liking the pool. She asks for HEP for the pool printed out for her PT-OP-F Manual Assessment Start: 12/13/18 09:15 Freq: Status: Active Protocol: Document 12/13/18 10:00 [facility] (Rec: 12/18/18 15:04 [facility] [email or web address]) Manual Assessments Soft Tissue Assessment Soft Tissue Mobility Assessment right>left lumbar paraspinal visable muscle guarding and restrictions PT-OP-J Posture/Palpation/Skin Start: 12/13/18 09:15 Freq: Status: Active Protocol: Document 12/13/18 10:00 [facility] (Rec: 12/18/18 15:04 [facility] [email or web address]) Posture Evaluation Comments Posture Comments pt stands with a right lateral shift and slight scoliosis with curve to the right Palpation Assessment Location One Palpation Location right parapsinals Palpation Findings Soft Tissue Tightness,Spasm, Muscle Guarding,Tenderness PT-OP-K Range of Motion Start: 12/13/18 09:15 Freq: Status: Active Protocol: Document 12/13/18 10:00 [facility] (Rec: 12/18/18 15:04 [facility] [email or web address]) Lumbar Spine Range of Motion Lumbar Spine Active Testing Position Standing Flexion 30 Lateral Flexion Left 15 Lateral Flexion Right 15 ROM Limitations Soft Tissue Tightness,Pain Comments flexion creates increased nerve pain into the sacrum PT-OP-L Special Tests Start: 12/13/18 09:15 Freq: Status: Active Protocol: Document 12/13/18 10:00 [facility] (Rec: 12/18/18 15:04 [facility] [email or web address]) Special Tests Lumbar Spine Special Tests Straight Leg Raise Test Results positive Comments end range only it recreates nerve pain bilaterally PT-OP-M Strength Start: 12/13/18 09:15 Freq: Status: Active Protocol: Document 12/13/18 10:00 [facility] (Rec: 12/18/18 15:04 [facility] [email or web address]) Trunk Strength Trunk Manual Muscle Testing Core Stabilization decreased activation of the transverse abdominal muscles and Ora reports she often feels as if those muscels have gone to sleep Hip Strength Hip Manual Muscle Testing Right Reason Not Measured WFL Knee Strength Knee Manual Muscle Testing Right Reason Not Measured WFL Ankle/Foot Strength Ankle and Foot Manual Muscle Testing Right Reason Not Measured WFL PT-OP-Q Treatments Start: 12/13/18 09:15 Freq: Status: Active Protocol: Document 03/20/19 17:33 [facility] (Rec: 03/20/19 17:39 [facility] [email or web address]) Therapeutic Exercises Supine Exercises 3 Supine Exercise Name lower abdominal progression with TA activation Reps/Minutes x 10 reps Other Exercises 5 Other Exercise Name boat pose with core activation 4 Other Exercise Name quadraped thoracic rotations Reps/Minutes 5 reps each side 3 Other Exercise Name side planks Reps/Minutes x 4 2 Other Exercise Name TA facilitation with a march Side bilateral 1 Other Exercise Name quadraped sidebends Side bilateral Reps/Minutes 10-15 reps Manual Therapy Treatment Soft Tissue Mobilization 2 Body Location piriformis release bilaterally Comments prone over body pillow 1 Body Location right parapsinals and quadratus lumborum Mobilization Type Myofascial Release Intensity/Depth Moderate Body Position Sidelying Comments pt instructed to use a pillow under her left side for sidelying sleeping at home PT-OP-S Aquatic Treatment Start: 12/22/18 16:50 Freq: Status: Active Protocol: Document 03/12/19 11:00 [facility] (Rec: 03/12/19 13:36 [facility] [email or web address]) Aquatics Treatment Pool Entry/Exit Pool Entry/Exit Method Stairs Water Walking backward with breast stroke arms Water Level Chest Level Walking Equipment Resistance Fins Level of Assistance Verbal Cues Comments cues for core stabilization Goodman March Water Level Chest Level Comments recip arms with spinal rotation Sideways Water Level Chest Level Comments hor ab/ad UE's Backwards Water Level Chest Level Comments arms at sides for drag Lower Extremity Stretches lateral trunk and QL Body Position Standing Water Level Waist Level Reps/Duration 45 x2 bilateral spiderman with body swing Water Level Neck Level Reps/Duration 3 min Comments various positions HC Body Position Standing Water Level Chest Level Reps/Duration 45x2 Comments bilat Spinal Exercises stretch cords - walking Details cord around waist Body Position Standing Water Level Waist Level Reps/Duration 4x2 steps each dir Comments step forward and backward strtetch cords - squat stabilization Details cord around waist Water Level Chest Level Reps/Duration 10 [place] Activities [place] Activities Bicycle,Cross Country Other Activities Running with med barbells submerged at sides Planks w/perturbation rotary ski vertizontal ski T hang w/uni and bilat pull downs PT-OP-T Assessment and Plan Start: 12/13/18 09:15 Freq: Status: Active Protocol: Document 03/20/19 17:27 [facility] (Rec: 03/20/19 17:33 [facility] [email or web address]) Physical Therapy Assessment Goals Four Impairment increased pain with running or hiking activities Skilled Nursing Goal (LTG) Carisa is educated in aquatic therapy running program that she is able to tolerate without increased pain symptoms GOOD PROGRESS, WORKING TOWARDS RUNNING GOOD PROGRESS Three Impairment Restricted lumbar spine ROM especially flexion which recreates pain Short Term Goal (STG) Ornasreen is able to perform lisha pose and cat cow without any increase in pain symptoms into the sacrum and buttocks GOOD PROGRESS STG Duration 4-6 weeks [employer] Goal (LTG) Improve standing lumbar flexion to WFL and without a reproduction in pain symptoms IMPROVING SOME PROGRESS Two Impairment pain rated 5/10 bilateral sacral and buttocks region Skilled Nursing Goal (LTG) Ornasreen reports a overall reduction in pain in the sacral and buttocks region NERVE PAIN HAS LESSENED NOW One Impairment right lateral shift in standing with parapsinal hypertrophy Short Term Goal (STG) Ornasreen is educated in both prone positioning as well as a lateral shift correction exercise GOAL MET Warp Bleaching Vat Tender Goal (LTG) Ornasreen presents with a reduced lateral shift in standing GOAL MET Progress Towards Goals Progress Towards Goals Progressing Toward Goals Assessment Summary Assessment Carisa reports a overall reduction in pain and she is tolerating the aquatic therapy program well. She would like a few additional visits in the pool to progress towards running. She really feels her core in the pool. She asks for a HEP print out for the pool exercises given. We added to her core program today with land based PT and she tolerated this well. Physical Therapy Plan Frequency and Duration Frequency of Treatment 2x/Week Duration of Treatment 8 Plan of Care Start Date 02/01/19 Plan of Care End Date 03/29/19 Therapeutic Interventions Therapeutic Interventions Aquatic Therapy,Home Exercise Program,Manual Therapy, Neuromuscular Re-education, Patient/Caregiver Education, Self-Care/Home Management,Soft Tissue Mobilization, Therapeutic Exercises Next Visit Focus/Plan Next Note Type Treatment Note Next Visit Plan continue with land based PT x 1 visit then a few more visits in the pool to progress to running. Please give pt exercise handouts for the pool next visit
--- NOTE | 2019-03-23 14:40 | PT.OTN ---
Current Diagnoses Cervicalgia (03/20/19) Low back pain (03/20/19) Physical Therapy Treatment Note PT-OP-A Visit Information Start: 12/13/18 09:15 Freq: Status: Active Protocol: Document 03/23/19 10:15 [facility] (Rec: 03/23/19 14:40 [facility] [id number]) Out-Patient Physical Therapy Visit Information Visit Information Visit Type Aquatic Treatment Note Visit Start Time 10:15 Visit Stop Time 11:00 Total Visit Minutes 45 Visit Number 14 Number of CONTRACTING MANAGER Visits 1 PT-OP-B Current Condition Start: 12/13/18 09:15 Freq: Status: Active Protocol: Document 12/13/18 10:00 [facility] (Rec: 12/18/18 15:04 [facility] [email or web address]) Current Condition History of Current Condition Onset Date 2006 Current Complaints sharp nerve pain into her buttocks, pain with walking and rolling in bed History of Current Condition Ora describes low back pain that began for her in 2006. She has had many trials of pain control including steriod injections, a nerve block and a nerve ablation. Her pain is moderate and constant rated 5/10. She exercises daily at the gym both cardio and weight lifting and she feels this keeps her going. Pain prevents her from walking long distances andfrom sitting more than 1 hour. She has a history of disc injury in her low back and Chron's disease Prior Treatments and Tests nerve blocks, nerve ablation, steriod injections into the SI joint and lumbar spine X-ray reveals grade 1 anterolesthesis L4-5 and degenerative joint disease, mild scolosis Treatment Goals Patient/Caregiver Goals Treatment goals include pain management ideas and aquatic therapy as a means to exercise Current Functional Impairments (Reported) Functional Limitations- ADL's pain prevents Ora from lifting heavy weights off of the floor, walking long distances, sitting more than a hour, standing more than a hour Functional Limitations- Recreation/ has not been able to run due Hobbies to pain PT-OP-C Subjective Start: 12/13/18 09:15 Freq: Status: Active Protocol: Document 03/23/19 10:15 [facility] (Rec: 03/23/19 14:40 LJ [id number]) OP-PT Subjective Patient Comments Patient Comments Pt states she thinks aquatic therapy is helping her. Requested aquatic HEP so she can go to pool on her own PT-OP-F Manual Assessment Start: 12/13/18 09:15 Freq: Status: Active Protocol: Document 12/13/18 10:00 [facility] (Rec: 12/18/18 15:04 [facility] [email or web address]) Manual Assessments Soft Tissue Assessment Soft Tissue Mobility Assessment right>left lumbar paraspinal visable muscle guarding and restrictions PT-OP-J Posture/Palpation/Skin Start: 12/13/18 09:15 Freq: Status: Active Protocol: Document 12/13/18 10:00 [facility] (Rec: 12/18/18 15:04 [facility] [email or web address]) Posture Evaluation Comments Posture Comments pt stands with a right lateral shift and slight scoliosis with curve to the right Palpation Assessment Location One Palpation Location right parapsinals Palpation Findings Soft Tissue Tightness,Spasm, Muscle Guarding,Tenderness PT-OP-K Range of Motion Start: 12/13/18 09:15 Freq: Status: Active Protocol: Document 12/13/18 10:00 [facility] (Rec: 12/18/18 15:04 [facility] [email or web address]) Lumbar Spine Range of Motion Lumbar Spine Active Testing Position Standing Flexion 30 Lateral Flexion Left 15 Lateral Flexion Right 15 ROM Limitations Soft Tissue Tightness,Pain Comments flexion creates increased nerve pain into the sacrum PT-OP-L Special Tests Start: 12/13/18 09:15 Freq: Status: Active Protocol: Document 12/13/18 10:00 [facility] (Rec: 12/18/18 15:04 [facility] [email or web address]) Special Tests Lumbar Spine Special Tests Straight Leg Raise Test Results positive Comments end range only it recreates nerve pain bilaterally PT-OP-M Strength Start: 12/13/18 09:15 Freq: Status: Active Protocol: Document 12/13/18 10:00 [facility] (Rec: 12/18/18 15:04 [facility] [email or web address]) Trunk Strength Trunk Manual Muscle Testing Core Stabilization decreased activation of the transverse abdominal muscles and Ora reports she often feels as if those muscels have gone to sleep Hip Strength Hip Manual Muscle Testing Right Reason Not Measured WFL Knee Strength Knee Manual Muscle Testing Right Reason Not Measured WFL Ankle/Foot Strength Ankle and Foot Manual Muscle Testing Right Reason Not Measured WFL PT-OP-Q Treatments Start: 12/13/18 09:15 Freq: Status: Active Protocol: Document 03/20/19 17:33 [facility] (Rec: 03/20/19 17:39 [facility] [email or web address]) Therapeutic Exercises Supine Exercises 3 Supine Exercise Name lower abdominal progression with TA activation Reps/Minutes x 10 reps Other Exercises 5 Other Exercise Name boat pose with core activation 4 Other Exercise Name quadraped thoracic rotations Reps/Minutes 5 reps each side 3 Other Exercise Name side planks Reps/Minutes x 4 2 Other Exercise Name TA facilitation with a march Side bilateral 1 Other Exercise Name quadraped sidebends Side bilateral Reps/Minutes 10-15 reps Manual Therapy Treatment Soft Tissue Mobilization 2 Body Location piriformis release bilaterally Comments prone over body pillow 1 Body Location right parapsinals and quadratus lumborum Mobilization Type Myofascial Release Intensity/Depth Moderate Body Position Sidelying Comments pt instructed to use a pillow under her left side for sidelying sleeping at home PT-OP-S Aquatic Treatment Start: 12/22/18 16:50 Freq: Status: Active Protocol: Document 03/23/19 10:15 LJ (Rec: 03/23/19 14:40 LJ [id number]) Aquatics Treatment Pool Entry/Exit Pool Entry/Exit Method Stairs Water Walking forward with UE paddles Comments alternating arms for spinal stability circumduction-forward and backward Water Level Chest Level Walking Equipment Resistance Fins Comments cues for core stab backward with breast stroke arms Water Level Chest Level Walking Equipment Resistance Fins Level of Assistance Verbal Cues Comments cues for core stabilization Galt March Water Level Chest Level Comments recip arms with spinal rotation Lower Extremity Stretches lateral trunk and QL Body Position Standing Water Level Waist Level Reps/Duration 45 x2 bilateral spiderman with body swing Water Level Neck Level Reps/Duration 3 min Comments various positions HC Body Position Standing Water Level Chest Level Reps/Duration 45x2 Comments bilat hip flexor Body Position Standing Water Level Chest Level Reps/Duration 45x2 Comments bilat quad Details at wall Body Position Standing Water Level Waist Level Equipment Large Noodle Reps/Duration 2x 45 HS Details at wall Body Position Standing Water Level Waist Level Equipment Large Noodle Reps/Duration 2x 45 Comments horiz ab/ad stretch incorporated-bilat Upper Extremity Exercises UE pull-down Body Position Standing Water Level Chest Level Equipment med barbells Reps/Duration 10x2 Comments sag and scaption plane fl/ex. ab/ad, hor ab/ad Body Position Standing Water Level Chest Level Reps/Duration 10x ea Comments cues for core stab; holding BBs under surface [place] Activities [place] Activities Bicycle,Cross Country Other Activities Running with med barbells submerged at sides Planks w/perturbation rotary ski vertizontal ski and pavel lateral flexion katya legs knee to elbow T hang w/uni and bilat pull downs PT-OP-T Assessment and Plan Start: 12/13/18 09:15 Freq: Status: Active Protocol: Document 03/23/19 10:15 LJ (Rec: 03/23/19 14:40 LJ [id number]) Physical Therapy Assessment Rehab Potential Rehabilitation Potential Good Impairments Impairments Activity Tolerance,Functional Activities,Pain,Posture,ROM, Soft Tissue Mobility,Strength Goals Four Impairment increased pain with running or hiking activities Ob Gyn Physician Assistant Goal (LTG) Carisa is educated in aquatic therapy running program that she is able to tolerate without increased pain symptoms GOOD PROGRESS, WORKING TOWARDS RUNNING GOOD PROGRESS Three Impairment Restricted lumbar spine ROM especially flexion which recreates pain Short Term Goal (STG) Ornasreen is able to perform lisha pose and cat cow without any increase in pain symptoms into the sacrum and buttocks GOOD PROGRESS STG Duration 4-6 weeks [facility] Goal (LTG) Improve standing lumbar flexion to WFL and without a reproduction in pain symptoms IMPROVING SOME PROGRESS Two Impairment pain rated 5/10 bilateral sacral and buttocks region Ob Gyn Physician Assistant Goal (LTG) Ornasreen reports a overall reduction in pain in the sacral and buttocks region NERVE PAIN HAS LESSENED NOW One Impairment right lateral shift in standing with parapsinal hypertrophy Short Term Goal (STG) Ornasreen is educated in both prone positioning as well as a lateral shift correction exercise GOAL MET [facility] Goal (LTG) Ornasreen presents with a reduced lateral shift in standing GOAL MET Progress Towards Goals Progress Towards Goals Progressing Toward Goals Assessment Summary Assessment Pt reports she is experiencing less pain and she is able to perform lumbar and core stabilizations with better control. She is able to tolerate some increased intensity now that she is better able to maintain stable core. Exercises provided but pt forgot to pick them up prior to leaving the pool. Physical Therapy Plan Frequency and Duration Frequency of Treatment 2x/Week Duration of Treatment 8 Plan of Care Start Date 02/01/19 Plan of Care End Date 03/29/19 Therapeutic Interventions Therapeutic Interventions Aquatic Therapy,Home Exercise Program,Manual Therapy, Neuromuscular Re-education, Patient/Caregiver Education, Self-Care/Home Management,Soft Tissue Mobilization, Therapeutic Exercises Next Visit Focus/Plan Next Note Type Treatment Note Next Visit Plan Progress pt to increased intensity for core exercises. Continue with alternating clinic and pool visits. Provide aquatic HEP again.
--- NOTE | 2019-03-26 15:20 | PT.OTN ---
Current Diagnoses Cervicalgia (03/23/19) Low back pain (03/23/19) Physical Therapy Treatment Note PT-OP-A Visit Information Start: 12/13/18 09:15 Freq: Status: Active Protocol: Document 03/26/19 11:00 LJ (Rec: 03/26/19 15:20 LJ [id number]) Out-Patient Physical Therapy Visit Information Visit Information Visit Type Aquatic Treatment Note Visit Start Time 11:00 Visit Stop Time 11:45 Total Visit Minutes 45 Visit Number 15 Number of RESOURCING CONSULTANT Visits 2 PT-OP-B Current Condition Start: 12/13/18 09:15 Freq: Status: Active Protocol: Document 12/13/18 10:00 AMH (Rec: 12/18/18 15:04 AMH [email or web address]) Current Condition History of Current Condition Onset Date 2006 Current Complaints sharp nerve pain into her buttocks, pain with walking and rolling in bed History of Current Condition Ora describes low back pain that began for her in 2006. She has had many trials of pain control including steriod injections, a nerve block and a nerve ablation. Her pain is moderate and constant rated 5/10. She exercises daily at the gym both cardio and weight lifting and she feels this keeps her going. Pain prevents her from walking long distances andfrom sitting more than 1 hour. She has a history of disc injury in her low back and Chron's disease Prior Treatments and Tests nerve blocks, nerve ablation, steriod injections into the SI joint and lumbar spine X-ray reveals grade 1 anterolesthesis L4-5 and degenerative joint disease, mild scolosis Treatment Goals Patient/Caregiver Goals Treatment goals include pain management ideas and aquatic therapy as a means to exercise Current Functional Impairments (Reported) Functional Limitations- ADL's pain prevents Ora from lifting heavy weights off of the floor, walking long distances, sitting more than a hour, standing more than a hour Functional Limitations- Recreation/ has not been able to run due Hobbies to pain PT-OP-C Subjective Start: 12/13/18 09:15 Freq: Status: Active Protocol: Document 03/26/19 11:00 LJ (Rec: 03/26/19 15:20 LJ [id number]) OP-PT Subjective Patient Comments Patient Comments Pt received her HEP for the pool. States that she feels her core is getting stronger and she is able to identify and control her muscles better . PT-OP-F Manual Assessment Start: 12/13/18 09:15 Freq: Status: Active Protocol: Document 12/13/18 10:00 AMH (Rec: 12/18/18 15:04 AMH [email or web address]) Manual Assessments Soft Tissue Assessment Soft Tissue Mobility Assessment right>left lumbar paraspinal visable muscle guarding and restrictions PT-OP-J Posture/Palpation/Skin Start: 12/13/18 09:15 Freq: Status: Active Protocol: Document 12/13/18 10:00 AMH (Rec: 12/18/18 15:04 AMH [email or web address]) Posture Evaluation Comments Posture Comments pt stands with a right lateral shift and slight scoliosis with curve to the right Palpation Assessment Location One Palpation Location right parapsinals Palpation Findings Soft Tissue Tightness,Spasm, Muscle Guarding,Tenderness PT-OP-K Range of Motion Start: 12/13/18 09:15 Freq: Status: Active Protocol: Document 12/13/18 10:00 AMH (Rec: 12/18/18 15:04 AMH [email or web address]) Lumbar Spine Range of Motion Lumbar Spine Active Testing Position Standing Flexion 30 Lateral Flexion Left 15 Lateral Flexion Right 15 ROM Limitations Soft Tissue Tightness,Pain Comments flexion creates increased nerve pain into the sacrum PT-OP-L Special Tests Start: 12/13/18 09:15 Freq: Status: Active Protocol: Document 12/13/18 10:00 AMH (Rec: 12/18/18 15:04 AMH [email or web address]) Special Tests Lumbar Spine Special Tests Straight Leg Raise Test Results positive Comments end range only it recreates nerve pain bilaterally PT-OP-M Strength Start: 12/13/18 09:15 Freq: Status: Active Protocol: Document 12/13/18 10:00 AMH (Rec: 12/18/18 15:04 AMH [email or web address]) Trunk Strength Trunk Manual Muscle Testing Core Stabilization decreased activation of the transverse abdominal muscles and Ora reports she often feels as if those muscels have gone to sleep Hip Strength Hip Manual Muscle Testing Right Reason Not Measured WFL Knee Strength Knee Manual Muscle Testing Right Reason Not Measured WFL Ankle/Foot Strength Ankle and Foot Manual Muscle Testing Right Reason Not Measured WFL PT-OP-Q Treatments Start: 12/13/18 09:15 Freq: Status: Active Protocol: Document 03/20/19 17:33 AMH (Rec: 03/20/19 17:39 AMH [email or web address]) Therapeutic Exercises Supine Exercises 3 Supine Exercise Name lower abdominal progression with TA activation Reps/Minutes x 10 reps Other Exercises 5 Other Exercise Name boat pose with core activation 4 Other Exercise Name quadraped thoracic rotations Reps/Minutes 5 reps each side 3 Other Exercise Name side planks Reps/Minutes x 4 2 Other Exercise Name TA facilitation with a march Side bilateral 1 Other Exercise Name quadraped sidebends Side bilateral Reps/Minutes 10-15 reps Manual Therapy Treatment Soft Tissue Mobilization 2 Body Location piriformis release bilaterally Comments prone over body pillow 1 Body Location right parapsinals and quadratus lumborum Mobilization Type Myofascial Release Intensity/Depth Moderate Body Position Sidelying Comments pt instructed to use a pillow under her left side for sidelying sleeping at home PT-OP-S Aquatic Treatment Start: 12/22/18 16:50 Freq: Status: Active Protocol: Document 03/26/19 11:00 LJ (Rec: 03/26/19 15:20 LJ [id number]) Aquatics Treatment Pool Entry/Exit Pool Entry/Exit Method Stairs Water Walking start stop directional changes Water Level Chest Level Walking Equipment Resistance Fins Level of Assistance Verbal Cues circumduction-forward and backward Water Level Chest Level Walking Equipment Resistance Fins Comments cues for core stab backward with breast stroke arms Water Level Chest Level Walking Equipment Resistance Fins [place] March Water Level Chest Level Comments recip arms with spinal rotation Sideways Water Level Chest Level Comments hor ab/ad UE's Backwards Water Level Chest Level Comments arms at sides for drag Lower Extremity Exercises Hip figure 8 Body Position Standing Water Level Chest Level Reps/Duration 12 B hip ab/ad-crossover Body Position Standing Water Level Waist Level Reps/Duration 10x2 bilat hip circumduction Body Position Standing Water Level Waist Level Reps/Duration 10x2 bilat and both dir hacky sac Water Level Chest Level Reps/Duration 10x bilat Lower Extremity Stretches quad Details at wall Body Position Standing Water Level Waist Level Equipment Large Noodle Reps/Duration 2x 45 HS Details at wall Body Position Standing Water Level Waist Level Equipment Large Noodle Reps/Duration 2x 45 Comments horiz ab/ad stretch incorporated-bilat Upper Extremity Exercises UE pull-down Body Position Standing Water Level Chest Level Equipment med barbells Reps/Duration 10x2 Comments sag and scaption plane fl/ex. ab/ad, hor ab/ad Body Position Standing Water Level Chest Level Reps/Duration 10x ea Comments cues for core stab; holding BBs under surface [place] Activities [place] Activities Bicycle,Cross [place] Other Activities Running with med barbells submerged at sides Planks w/perturbation rotary ski vertizontal ski and paevl lateral flexion katya legs knee to elbow T hang w/uni and bilat pull downs PT-OP-T Assessment and Plan Start: 12/13/18 09:15 Freq: Status: Active Protocol: Document 03/26/19 11:00 WILLIAN (Rec: 03/26/19 15:20 [id number]) Physical Therapy Assessment Rehab Potential Rehabilitation Potential Good Impairments Impairments Activity Tolerance,Functional Activities,Pain,Posture,ROM, Soft Tissue Mobility,Strength Goals Four Impairment increased pain with running or hiking activities Longterm Goal (LTG) Carisa is educated in aquatic therapy running program that she is able to tolerate without increased pain symptoms GOOD PROGRESS, WORKING TOWARDS RUNNING GOOD PROGRESS Three Impairment Restricted lumbar spine ROM especially flexion which recreates pain Short Term Goal (STG) Ornasreen is able to perform lisha pose and cat cow without any increase in pain symptoms into the sacrum and buttocks GOOD PROGRESS STG Duration 4-6 weeks Longterm Goal (LTG) Improve standing lumbar flexion to WFL and without a reproduction in pain symptoms IMPROVING SOME PROGRESS Two Impairment pain rated 5/10 bilateral sacral and buttocks region Longterm Goal (LTG) Ornasreen reports a overall reduction in pain in the sacral and buttocks region NERVE PAIN HAS LESSENED NOW One Impairment right lateral shift in standing with parapsinal hypertrophy Short Term Goal (STG) Ornasreen is educated in both prone positioning as well as a lateral shift correction exercise GOAL MET Longterm Goal (LTG) Ornasreen presents with a reduced lateral shift in standing GOAL MET Progress Towards Goals Progress Towards Goals Progressing Toward Goals Assessment Summary Assessment Pt tolerated increased difficulty of exercises in deep water which challenged her ability to stabilize using oblique muscles. She is progressing and toerating more challenging exercises with small changes which assist her in identifying and refining trunk stability. Physical Therapy Plan Frequency and Duration Frequency of Treatment 2x/Week Duration of Treatment 8 Plan of Care Start Date 02/01/19 Plan of Care End Date 03/29/19 Therapeutic Interventions Therapeutic Interventions Aquatic Therapy,Home Exercise Program,Manual Therapy, Neuromuscular Re-education, Patient/Caregiver Education, Self-Care/Home Management,Soft Tissue Mobilization, Therapeutic Exercises Next Visit Focus/Plan Next Note Type Treatment Note Next Visit Plan Progress pt to increased intensity for core exercises. Continue with alternating clinic and pool visits. Begin running activities in deep water
--- NOTE | 2019-04-06 13:58 | PT.OTN ---
Current Diagnoses Cervicalgia (03/26/19) Low back pain (03/26/19) Physical Therapy Treatment Note PT-OP-A Visit Information Start: 12/13/18 09:15 Freq: Status: Active Protocol: Document 04/06/19 11:45 LJ (Rec: 04/06/19 13:58 LJ [id number]) Out-Patient Physical Therapy Visit Information Visit Information Visit Type Aquatic Treatment Note Visit Start Time 11:45 Visit Stop Time 12:30 Total Visit Minutes 45 Visit Number 16 Number of AIR MARSHAL Visits 3 PT-OP-B Current Condition Start: 12/13/18 09:15 Freq: Status: Active Protocol: Document 12/13/18 10:00 AMH (Rec: 12/18/18 15:04 AMH [email or web address]) Current Condition History of Current Condition Onset Date 2006 Current Complaints sharp nerve pain into her buttocks, pain with walking and rolling in bed History of Current Condition Ora describes low back pain that began for her in 2006. She has had many trials of pain control including steriod injections, a nerve block and a nerve ablation. Her pain is moderate and constant rated 5/10. She exercises daily at the gym both cardio and weight lifting and she feels this keeps her going. Pain prevents her from walking long distances andfrom sitting more than 1 hour. She has a history of disc injury in her low back and Chron's disease Prior Treatments and Tests nerve blocks, nerve ablation, steriod injections into the SI joint and lumbar spine X-ray reveals grade 1 anterolesthesis L4-5 and degenerative joint disease, mild scolosis Treatment Goals Patient/Caregiver Goals Treatment goals include pain management ideas and aquatic therapy as a means to exercise Current Functional Impairments (Reported) Functional Limitations- ADL's pain prevents Ora from lifting heavy weights off of the floor, walking long distances, sitting more than a hour, standing more than a hour Functional Limitations- Recreation/ has not been able to run due Hobbies to pain PT-OP-C Subjective Start: 12/13/18 09:15 Freq: Status: Active Protocol: Document 04/06/19 11:45 WILLIAN (Rec: 04/06/19 13:58 LJ [id number]) OP-PT Subjective Patient Comments Patient Comments Pt states she saw an orthopedic surgeon in [place] last week and they were discussing options for the latest MRI showing increased disc deterioration PT-OP-F Manual Assessment Start: 12/13/18 09:15 Freq: Status: Active Protocol: Document 12/13/18 10:00 AMH (Rec: 12/18/18 15:04 AMH [email or web address]) Manual Assessments Soft Tissue Assessment Soft Tissue Mobility Assessment right>left lumbar paraspinal visable muscle guarding and restrictions PT-OP-J Posture/Palpation/Skin Start: 12/13/18 09:15 Freq: Status: Active Protocol: Document 12/13/18 10:00 AMH (Rec: 12/18/18 15:04 AMH [email or web address]) Posture Evaluation Comments Posture Comments pt stands with a right lateral shift and slight scoliosis with curve to the right Palpation Assessment Location One Palpation Location right parapsinals Palpation Findings Soft Tissue Tightness,Spasm, Muscle Guarding,Tenderness PT-OP-K Range of Motion Start: 12/13/18 09:15 Freq: Status: Active Protocol: Document 12/13/18 10:00 AMH (Rec: 12/18/18 15:04 AMH [email or web address]) Lumbar Spine Range of Motion Lumbar Spine Active Testing Position Standing Flexion 30 Lateral Flexion Left 15 Lateral Flexion Right 15 ROM Limitations Soft Tissue Tightness,Pain Comments flexion creates increased nerve pain into the sacrum PT-OP-L Special Tests Start: 12/13/18 09:15 Freq: Status: Active Protocol: Document 12/13/18 10:00 AMH (Rec: 12/18/18 15:04 AMH [email or web address]) Special Tests Lumbar Spine Special Tests Straight Leg Raise Test Results positive Comments end range only it recreates nerve pain bilaterally PT-OP-M Strength Start: 12/13/18 09:15 Freq: Status: Active Protocol: Document 12/13/18 10:00 AMH (Rec: 12/18/18 15:04 AMH [email or web address]) Trunk Strength Trunk Manual Muscle Testing Core Stabilization decreased activation of the transverse abdominal muscles and Ora reports she often feels as if those muscels have gone to sleep Hip Strength Hip Manual Muscle Testing Right Reason Not Measured WFL Knee Strength Knee Manual Muscle Testing Right Reason Not Measured WFL Ankle/Foot Strength Ankle and Foot Manual Muscle Testing Right Reason Not Measured WFL PT-OP-Q Treatments Start: 12/13/18 09:15 Freq: Status: Active Protocol: Document 03/20/19 17:33 AMH (Rec: 03/20/19 17:39 AMH [email or web address]) Therapeutic Exercises Supine Exercises 3 Supine Exercise Name lower abdominal progression with TA activation Reps/Minutes x 10 reps Other Exercises 5 Other Exercise Name boat pose with core activation 4 Other Exercise Name quadraped thoracic rotations Reps/Minutes 5 reps each side 3 Other Exercise Name side planks Reps/Minutes x 4 2 Other Exercise Name TA facilitation with a march Side bilateral 1 Other Exercise Name quadraped sidebends Side bilateral Reps/Minutes 10-15 reps Manual Therapy Treatment Soft Tissue Mobilization 2 Body Location piriformis release bilaterally Comments prone over body pillow 1 Body Location right parapsinals and quadratus lumborum Mobilization Type Myofascial Release Intensity/Depth Moderate Body Position Sidelying Comments pt instructed to use a pillow under her left side for sidelying sleeping at home PT-OP-S Aquatic Treatment Start: 12/22/18 16:50 Freq: Status: Active Protocol: Document 04/06/19 11:45 LJ (Rec: 04/06/19 13:58 LJ [id number]) Aquatics Treatment Pool Entry/Exit Pool Entry/Exit Method Stairs Water Walking start stop directional changes Water Level Chest Level Walking Equipment Resistance Fins Level of Assistance Verbal Cues circumduction-forward and backward Water Level Chest Level Walking Equipment Resistance Fins Comments cues for core stab backward with breast stroke arms Water Level Chest Level Walking Equipment Resistance Fins [place] Water Level Chest Level Comments recip arms with spinal rotation Sideways Water Level Chest Level Comments hor ab/ad UE's Backwards Water Level Chest Level Comments arms at sides for drag Upper Extremity Exercises UE pull-down Body Position Standing Water Level Chest Level Equipment med barbells Reps/Duration 10x2 Comments sag and scaption plane fl/ex. ab/ad, hor ab/ad Body Position Standing Water Level Chest Level Reps/Duration 10x ea Comments cues for core stab; holding BBs under surface Spinal Exercises stretch cords - spinal rotation Body Position Standing Water Level Waist Level Reps/Duration 10 B stretch cords - walking Details cord around waist Body Position Standing Water Level Waist Level Reps/Duration 4x2 steps each dir Comments step forward and backward strtetch cords - squat stabilization Details cord around waist Water Level Chest Level Reps/Duration 10 [place] Activities [place] Activities Bicycle,Cross [place] Other Activities Running with med barbells submerged at sides Planks w/perturbation rotary ski vertizontal ski and pavel standing on noodle lateral flexion [place] legs knee to elbow T hang w/uni and bilat pull downs Comments Crunches x 3 ways with noodle under knees in supine position [place] 3 ways 2x10 each PT-OP-T Assessment and Plan Start: 12/13/18 09:15 Freq: Status: Active Protocol: Document 04/06/19 11:45 LJ (Rec: 04/06/19 13:58 LJ [id number]) Physical Therapy Assessment Rehab Potential Rehabilitation Potential Good Impairments Impairments Activity Tolerance,Functional Activities,Pain,Posture,ROM, Soft Tissue Mobility,Strength Goals Four Impairment increased pain with running or hiking activities Field Identification Specialist Goal (LTG) Carisa is educated in aquatic therapy running program that she is able to tolerate without increased pain symptoms GOOD PROGRESS, WORKING TOWARDS RUNNING GOOD PROGRESS Three Impairment Restricted lumbar spine ROM especially flexion which recreates pain Short Term Goal (STG) Ornasreen is able to perform lisha pose and cat cow without any increase in pain symptoms into the sacrum and buttocks GOOD PROGRESS STG Duration 4-6 weeks Group Home Goal (LTG) Improve standing lumbar flexion to WFL and without a reproduction in pain symptoms IMPROVING SOME PROGRESS Two Impairment pain rated 5/10 bilateral sacral and buttocks region Group Home Goal (LTG) Ornasreen reports a overall reduction in pain in the sacral and buttocks region NERVE PAIN HAS LESSENED NOW One Impairment right lateral shift in standing with parapsinal hypertrophy Short Term Goal (STG) Ornasreen is educated in both prone positioning as well as a lateral shift correction exercise GOAL MET Field Identification Specialist Goal (LTG) Ornasreen presents with a reduced lateral shift in standing GOAL MET Progress Towards Goals Progress Towards Goals Progressing Toward Goals Assessment Summary Assessment Pt is progressing with therapy and feels she is getting stronger. Wants to get to the pool on her own more. She feels she is getting more challenge and benefit from aquatic therapy than land. Level of difficulty and intensity has increased and she is responding well. Physical Therapy Plan Frequency and Duration Frequency of Treatment 2x/Week Duration of Treatment 8 Plan of Care Start Date 02/01/19 Plan of Care End Date 03/29/19 Therapeutic Interventions Therapeutic Interventions Aquatic Therapy,Home Exercise Program,Manual Therapy, Neuromuscular Re-education, Patient/Caregiver Education, Self-Care/Home Management,Soft Tissue Mobilization, Therapeutic Exercises Next Visit Focus/Plan Next Note Type Treatment Note Next Visit Plan Progress pt to increased intensity for core exercises. Continue with alternating clinic and pool visits for core strengthening.
--- NOTE | 2019-04-09 10:15 | PT.OTN ---
Current Diagnoses Cervicalgia (04/06/19) Low back pain (04/06/19) Physical Therapy Treatment Note PT-OP-A Visit Information Start: 12/13/18 09:15 Freq: Status: Active Protocol: Document 04/09/19 10:15 CLB (Rec: 04/09/19 14:56 CLB [id number]) Out-Patient Physical Therapy Visit Information Visit Information Visit Type Aquatic Treatment Note Visit Start Time 10:15 Visit Stop Time 11:00 Total Visit Minutes 45 Visit Number 17 Number of AWNING MAKER Visits 4 PT-OP-B Current Condition Start: 12/13/18 09:15 Freq: Status: Active Protocol: Document 12/13/18 10:00 AMH (Rec: 12/18/18 15:04 AMH [email or web address]) Current Condition History of Current Condition Onset Date 2006 Current Complaints sharp nerve pain into her buttocks, pain with walking and rolling in bed History of Current Condition Ora describes low back pain that began for her in 2006. She has had many trials of pain control including steriod injections, a nerve block and a nerve ablation. Her pain is moderate and constant rated 5/10. She exercises daily at the gym both cardio and weight lifting and she feels this keeps her going. Pain prevents her from walking long distances andfrom sitting more than 1 hour. She has a history of disc injury in her low back and Chron's disease Prior Treatments and Tests nerve blocks, nerve ablation, steriod injections into the SI joint and lumbar spine X-ray reveals grade 1 anterolesthesis L4-5 and degenerative joint disease, mild scolosis Treatment Goals Patient/Caregiver Goals Treatment goals include pain management ideas and aquatic therapy as a means to exercise Current Functional Impairments (Reported) Functional Limitations- ADL's pain prevents Ora from lifting heavy weights off of the floor, walking long distances, sitting more than a hour, standing more than a hour Functional Limitations- Recreation/ has not been able to run due Hobbies to pain PT-OP-C Subjective Start: 12/13/18 09:15 Freq: Status: Active Protocol: Document 04/09/19 10:15 CLB (Rec: 04/09/19 14:56 CLB [id number]) OP-PT Subjective Patient Comments Patient Comments Pt states that PT Aleksandra encouraging 2-3 more aquatic tx. PT-OP-F Manual Assessment Start: 12/13/18 09:15 Freq: Status: Active Protocol: Document 12/13/18 10:00 AMH (Rec: 12/18/18 15:04 AMH [email or web address]) Manual Assessments Soft Tissue Assessment Soft Tissue Mobility Assessment right>left lumbar paraspinal visable muscle guarding and restrictions PT-OP-J Posture/Palpation/Skin Start: 12/13/18 09:15 Freq: Status: Active Protocol: Document 12/13/18 10:00 AMH (Rec: 12/18/18 15:04 AMH [email or web address]) Posture Evaluation Comments Posture Comments pt stands with a right lateral shift and slight scoliosis with curve to the right Palpation Assessment Location One Palpation Location right parapsinals Palpation Findings Soft Tissue Tightness,Spasm, Muscle Guarding,Tenderness PT-OP-K Range of Motion Start: 12/13/18 09:15 Freq: Status: Active Protocol: Document 12/13/18 10:00 AMH (Rec: 12/18/18 15:04 AMH [email or web address]) Lumbar Spine Range of Motion Lumbar Spine Active Testing Position Standing Flexion 30 Lateral Flexion Left 15 Lateral Flexion Right 15 ROM Limitations Soft Tissue Tightness,Pain Comments flexion creates increased nerve pain into the sacrum PT-OP-L Special Tests Start: 12/13/18 09:15 Freq: Status: Active Protocol: Document 12/13/18 10:00 AMH (Rec: 12/18/18 15:04 AMH [email or web address]) Special Tests Lumbar Spine Special Tests Straight Leg Raise Test Results positive Comments end range only it recreates nerve pain bilaterally PT-OP-M Strength Start: 12/13/18 09:15 Freq: Status: Active Protocol: Document 12/13/18 10:00 AMH (Rec: 12/18/18 15:04 AMH [email or web address]) Trunk Strength Trunk Manual Muscle Testing Core Stabilization decreased activation of the transverse abdominal muscles and Ora reports she often feels as if those muscels have gone to sleep Hip Strength Hip Manual Muscle Testing Right Reason Not Measured WFL Knee Strength Knee Manual Muscle Testing Right Reason Not Measured WFL Ankle/Foot Strength Ankle and Foot Manual Muscle Testing Right Reason Not Measured WFL PT-OP-Q Treatments Start: 12/13/18 09:15 Freq: Status: Active Protocol: Document 03/20/19 17:33 AMH (Rec: 03/20/19 17:39 AMH [email or web address]) Therapeutic Exercises Supine Exercises 3 Supine Exercise Name lower abdominal progression with TA activation Reps/Minutes x 10 reps Other Exercises 5 Other Exercise Name boat pose with core activation 4 Other Exercise Name quadraped thoracic rotations Reps/Minutes 5 reps each side 3 Other Exercise Name side planks Reps/Minutes x 4 2 Other Exercise Name TA facilitation with a march Side bilateral 1 Other Exercise Name quadraped sidebends Side bilateral Reps/Minutes 10-15 reps Manual Therapy Treatment Soft Tissue Mobilization 2 Body Location piriformis release bilaterally Comments prone over body pillow 1 Body Location right parapsinals and quadratus lumborum Mobilization Type Myofascial Release Intensity/Depth Moderate Body Position Sidelying Comments pt instructed to use a pillow under her left side for sidelying sleeping at home PT-OP-S Aquatic Treatment Start: 12/22/18 16:50 Freq: Status: Active Protocol: Document 04/09/19 10:15 CLB (Rec: 04/09/19 14:56 CLB [id number]) Aquatics Treatment Pool Entry/Exit Pool Entry/Exit Method Stairs Water Walking Sideways Water Level Chest Level Comments hor ab/ad UE's Backwards Water Level Chest Level Comments arms at sides for drag Forwards Water Level Chest Level Walking Equipment Resistance Fins Comments arms at sides for drag Lower Extremity Stretches spiderman with body swing Water Level Neck Level Reps/Duration 3 min Comments various positions hip flexor Body Position Standing Water Level Chest Level Reps/Duration 45x2 Comments bilat Upper Extremity Exercises UE pull-down Body Position Standing Water Level Chest Level Equipment med barbells Reps/Duration 10x2 Comments sag and scaption plane fl/ex. ab/ad, hor ab/ad Body Position Standing Water Level Chest Level Reps/Duration 10x ea Comments cues for core stab; holding BBs under surface Spinal Exercises stretch cords - spinal rotation Body Position Standing Water Level Waist Level Reps/Duration 10 B stretch cords - walking Details cord around waist Body Position Standing Water Level Waist Level Reps/Duration 4x2 steps each dir Comments step forward and backward strtetch cords - squat stabilization Details cord around waist Water Level Chest Level Reps/Duration 10 Assonet Activities Assonet Activities Bicycle,[place] Other Activities Running with med barbells submerged at sides Planks w/perturbation rotary ski vertizontal ski and pavel standing on noodle lateral flexion katya legs knee to elbow T hang w/uni and bilat pull downs Comments Crunches x 3 ways with noodle under knees in supine position Burpees 3 ways 2x10 each PT-OP-T Assessment and Plan Start: 12/13/18 09:15 Freq: Status: Active Protocol: Document 04/09/19 10:15 CLB (Rec: 04/09/19 14:56 CLB [id number]) Physical Therapy Assessment Goals Four Impairment increased pain with running or hiking activities [facility] Goal (LTG) Ornasreen is educated in aquatic therapy running program that she is able to tolerate without increased pain symptoms GOOD PROGRESS, WORKING TOWARDS RUNNING GOOD PROGRESS Three Impairment Restricted lumbar spine ROM especially flexion which recreates pain Short Term Goal (STG) Ora is able to perform lisha pose and cat cow without any increase in pain symptoms into the sacrum and buttocks GOOD PROGRESS STG Duration 4-6 weeks [facility] Goal (LTG) Improve standing lumbar flexion to WFL and without a reproduction in pain symptoms IMPROVING SOME PROGRESS Two Impairment pain rated 5/10 bilateral sacral and buttocks region [facility] Goal (LTG) Ora reports a overall reduction in pain in the sacral and buttocks region NERVE PAIN HAS LESSENED NOW One Impairment right lateral shift in standing with parapsinal hypertrophy Short Term Goal (STG) Ora is educated in both prone positioning as well as a lateral shift correction exercise GOAL MET [facility] Goal (LTG) Ora presents with a reduced lateral shift in standing GOAL MET Assessment Summary Assessment Pt continues to tolerate aquatic therapy progression. Physical Therapy Plan Frequency and Duration Frequency of Treatment 2x/Week Duration of Treatment 8 Plan of Care Start Date 02/01/19 Plan of Care End Date 03/29/19 Next Visit Focus/Plan Next Note Type Treatment Note Next Visit Plan Progress pt to increased intensity for core exercises. Continue with alternating clinic and pool visits for core strengthening.
--- NOTE | 2019-04-09 17:00 | PT.OTRE ---
Current Diagnoses Cervicalgia (04/06/19) Low back pain (04/06/19) Past Medical History (Last Reviewed 02/05/19 @ 11:07 by JUAN M Cadet) Anemia (Resolved 1996) Anxiety (Chronic) Arm fracture (Resolved 1976) Chicken pox (Resolved 1975) Chronic back pain (Chronic ~2006) Colon polyps (Resolved) Crohn's colitis (Chronic 1995) Depression (Chronic) Fecal incontinence (Resolved 1997) Fibroids (Chronic 2009) GI bleeding (Resolved 1995) Hemorrhoids (Resolved 1995) IBS (irritable bowel syndrome) (Chronic 1995) Joint ache (Chronic 2013) Osteoarthritis (Chronic 2006) Polymyalgia rheumatica (Chronic) Substance abuse (Chronic ~2001) Surgical History (Last Reviewed 02/05/19 @ 11:07 by JUAN M Cadet) Anesthesia (Resolved) History of breast augmentation (Resolved 06/07/11) History of surgery (Resolved 1997) Status post delivery (Resolved 08/25/09) Status post colonoscopy (Resolved 2011) Visit Care Team Role Provider Type Mary Anderson DO Attending Provider Physician Primary Care Provider Specialty: [facility] Address: [address] [place] [address], [facility] Email: [email or web address] Physical Therapy Re-Evaluation PT-OP-A Visit Information Start: 12/13/18 09:15 Freq: Status: Active Protocol: Document 04/09/19 10:15 CLB (Rec: 04/09/19 14:56 CLB [id number]) Out-Patient Physical Therapy Visit Information Visit Information Visit Type Aquatic Treatment Note Visit Start Time 10:15 Visit Stop Time 11:00 Total Visit Minutes 45 Visit Number 17 Number of CHILD PROTECTION SPECIALIST Visits 4 PT-OP-B Current Condition Start: 12/13/18 09:15 Freq: Status: Active Protocol: Document 12/13/18 10:00 AMH (Rec: 12/18/18 15:04 AMH [email or web address]) Current Condition History of Current Condition Onset Date 2006 Current Complaints sharp nerve pain into her buttocks, pain with walking and rolling in bed History of Current Condition Ora describes low back pain that began for her in 2006. She has had many trials of pain control including steriod injections, a nerve block and a nerve ablation. Her pain is moderate and constant rated 5/10. She exercises daily at the gym both cardio and weight lifting and she feels this keeps her going. Pain prevents her from walking long distances andfrom sitting more than 1 hour. She has a history of disc injury in her low back and Chron's disease Prior Treatments and Tests nerve blocks, nerve ablation, steriod injections into the SI joint and lumbar spine X-ray reveals grade 1 anterolesthesis L4-5 and degenerative joint disease, mild scolosis Treatment Goals Patient/Caregiver Goals Treatment goals include pain management ideas and aquatic therapy as a means to exercise Current Functional Impairments (Reported) Functional Limitations- ADL's pain prevents Ora from lifting heavy weights off of the floor, walking long distances, sitting more than a hour, standing more than a hour Functional Limitations- Recreation/ has not been able to run due Hobbies to pain PT-OP-C Subjective Start: 12/13/18 09:15 Freq: Status: Active Protocol: Document 04/09/19 10:15 CLB (Rec: 04/09/19 14:56 CLB [id number]) OP-PT Subjective Patient Comments Patient Comments Pt states that PT Aleksandra encouraging 2-3 more aquatic tx. PT-OP-F Manual Assessment Start: 12/13/18 09:15 Freq: Status: Active Protocol: Document 12/13/18 10:00 AMH (Rec: 12/18/18 15:04 AMH [email or web address]) Manual Assessments Soft Tissue Assessment Soft Tissue Mobility Assessment right>left lumbar paraspinal visable muscle guarding and restrictions PT-OP-J Posture/Palpation/Skin Start: 12/13/18 09:15 Freq: Status: Active Protocol: Document 12/13/18 10:00 AMH (Rec: 12/18/18 15:04 AMH [email or web address]) Posture Evaluation Comments Posture Comments pt stands with a right lateral shift and slight scoliosis with curve to the right Palpation Assessment Location One Palpation Location right parapsinals Palpation Findings Soft Tissue Tightness,Spasm, Muscle Guarding,Tenderness PT-OP-K Range of Motion Start: 12/13/18 09:15 Freq: Status: Active Protocol: Document 12/13/18 10:00 AMH (Rec: 12/18/18 15:04 AMH [email or web address]) Lumbar Spine Range of Motion Lumbar Spine Active Testing Position Standing Flexion 30 Lateral Flexion Left 15 Lateral Flexion Right 15 ROM Limitations Soft Tissue Tightness,Pain Comments flexion creates increased nerve pain into the sacrum PT-OP-L Special Tests Start: 12/13/18 09:15 Freq: Status: Active Protocol: Document 12/13/18 10:00 AMH (Rec: 12/18/18 15:04 AMH [email or web address]) Special Tests Lumbar Spine Special Tests Straight Leg Raise Test Results positive Comments end range only it recreates nerve pain bilaterally PT-OP-M Strength Start: 12/13/18 09:15 Freq: Status: Active Protocol: Document 12/13/18 10:00 AMH (Rec: 12/18/18 15:04 AMH [email or web address]) Trunk Strength Trunk Manual Muscle Testing Core Stabilization decreased activation of the transverse abdominal muscles and Ora reports she often feels as if those muscels have gone to sleep Hip Strength Hip Manual Muscle Testing Right Reason Not Measured WFL Knee Strength Knee Manual Muscle Testing Right Reason Not Measured WFL Ankle/Foot Strength Ankle and Foot Manual Muscle Testing Right Reason Not Measured WFL PT-OP-Q Treatments Start: 12/13/18 09:15 Freq: Status: Active Protocol: Document 03/20/19 17:33 AMH (Rec: 03/20/19 17:39 AMH [email or web address]) Therapeutic Exercises Supine Exercises 3 Supine Exercise Name lower abdominal progression with TA activation Reps/Minutes x 10 reps Other Exercises 5 Other Exercise Name boat pose with core activation 4 Other Exercise Name quadraped thoracic rotations Reps/Minutes 5 reps each side 3 Other Exercise Name side planks Reps/Minutes x 4 2 Other Exercise Name TA facilitation with a march Side bilateral 1 Other Exercise Name quadraped sidebends Side bilateral Reps/Minutes 10-15 reps Manual Therapy Treatment Soft Tissue Mobilization 2 Body Location piriformis release bilaterally Comments prone over body pillow 1 Body Location right parapsinals and quadratus lumborum Mobilization Type Myofascial Release Intensity/Depth Moderate Body Position Sidelying Comments pt instructed to use a pillow under her left side for sidelying sleeping at home PT-OP-T Assessment and Plan Start: 12/13/18 09:15 Freq: Status: Active Protocol: Document 04/09/19 16:17 SAK (Rec: 04/09/19 16:22 SAK [id number]) Physical Therapy Assessment Rehab Potential Rehabilitation Potential Good Impairments Impairments Activity Tolerance,Functional Activities,Pain,Posture,ROM, Soft Tissue Mobility,Strength Goals Four Impairment increased pain with running or hiking activities Seismograph Supervisor Goal (LTG) Carisa is educated in aquatic therapy running program that she is able to tolerate without increased pain symptoms GOOD PROGRESS, WORKING TOWARDS RUNNING GOOD PROGRESS LTG Duration 6 wks Three Impairment Restricted lumbar spine ROM especially flexion which recreates pain Short Term Goal (STG) Ornasreen is able to perform lisha pose and cat cow without any increase in pain symptoms into the sacrum and buttocks GOOD PROGRESS Seismograph Supervisor Goal (LTG) Improve standing lumbar flexion to WFL and without a reproduction in pain symptoms IMPROVING SOME PROGRESS Two Impairment pain rated 5/10 bilateral sacral and buttocks region Seismograph Supervisor Goal (LTG) Ornasreen reports a overall reduction in pain in the sacral and buttocks region NERVE PAIN HAS LESSENED NOW One Impairment right lateral shift in standing with parapsinal hypertrophy Short Term Goal (STG) Ornasreen is educated in both prone positioning as well as a lateral shift correction exercise GOAL MET Seismograph Supervisor Goal (LTG) Ornasreen presents with a reduced lateral shift in standing GOAL MET Progress Towards Goals Progress Towards Goals Progressing Toward Goals Assessment Summary Assessment Carisa has been making steady progress with aquatic and land -based PT. She has finished land-based PT but would benefit from further aquatic PT to progress to safe and independent aquatic exercise program. Physical Therapy Plan Frequency and Duration Frequency of Treatment 4 visits Duration of Treatment 6 wks Plan of Care Start Date 04/09/19 Plan of Care End Date 05/21/19 Therapeutic Interventions Therapeutic Interventions Aquatic Therapy,Home Exercise Program,Manual Therapy, Neuromuscular Re-education, Patient/Caregiver Education, Self-Care/Home Management,Soft Tissue Mobilization, Therapeutic Exercises Next Visit Focus/Plan Next Note Type Treatment Note Next Visit Plan Progress toward independent aquatic exercise program, issue running recovery program for aquatic setting and instruct in progression.
--- NOTE | 2019-04-09 17:00 | PT.OPPOC ---
Physical, Occupational & Speech Therapy At [facility] Current Diagnoses Cervicalgia (04/06/19) Low back pain (04/06/19) Visit Care Team Role Provider Type Mary Anderson DO Attending Provider Physician Primary Care Provider Specialty: Family Practice Address: [address] [place] [address], [address], [facility] Email: [email or web address] Plan Of Care PT-OP-T Assessment and Plan Start: 12/13/18 09:15 Freq: Status: Active Protocol: Document 04/09/19 16:17 PRANAV (Rec: 04/09/19 16:22 SAK [id number]) Physical Therapy Assessment Rehab Potential Rehabilitation Potential Good Impairments Impairments Activity Tolerance,Functional Activities,Pain,Posture,ROM, Soft Tissue Mobility,Strength Goals Four Impairment increased pain with running or hiking activities Jail Goal (LTG) Carisa is educated in aquatic therapy running program that she is able to tolerate without increased pain symptoms GOOD PROGRESS, WORKING TOWARDS RUNNING GOOD PROGRESS LTG Duration 6 wks Three Impairment Restricted lumbar spine ROM especially flexion which recreates pain Short Term Goal (STG) Carisa is able to perform lisha pose and cat cow without any increase in pain symptoms into the sacrum and buttocks GOOD PROGRESS Sr. Manager Goal (LTG) Improve standing lumbar flexion to WFL and without a reproduction in pain symptoms IMPROVING SOME PROGRESS Two Impairment pain rated 5/10 bilateral sacral and buttocks region Jail Goal (LTG) Carisa reports a overall reduction in pain in the sacral and buttocks region NERVE PAIN HAS LESSENED NOW One Impairment right lateral shift in standing with parapsinal hypertrophy Short Term Goal (STG) Ornasreen is educated in both prone positioning as well as a lateral shift correction exercise GOAL MET Jail Goal (LTG) Carisa presents with a reduced lateral shift in standing GOAL MET Progress Towards Goals Progress Towards Goals Progressing Toward Goals Assessment Summary Assessment Carisa has been making steady progress with aquatic and land -based PT. She has finished land-based PT but would benefit from further aquatic PT to progress to safe and independent aquatic exercise program. Physical Therapy Plan Frequency and Duration Frequency of Treatment 4 visits Duration of Treatment 6 wks Plan of Care Start Date 04/09/19 Plan of Care End Date 05/21/19 Therapeutic Interventions Therapeutic Interventions Aquatic Therapy,Home Exercise Program,Manual Therapy, Neuromuscular Re-education, Patient/Caregiver Education, Self-Care/Home Management,Soft Tissue Mobilization, Therapeutic Exercises Next Visit Focus/Plan Next Note Type Treatment Note Next Visit Plan Progress toward independent aquatic exercise program, issue running recovery program for aquatic setting and instruct in progression. Plan of Care Dates Plan of Care Start Date 04/09/19 Plan of Care End Date 05/21/19 Electronically Signed by: Ceci Fajardo, PT 04/09/19 1794 Please Sign and Return: I have reviewed this Plan of Care and certify that the skilled therapy services above are required to meet the patient?s needs. Physician Signature Date Printed Name and Credentials Clinical Instructor Signature Printed Name and Credentials
--- NOTE | 2019-12-11 13:21 | PT.OPDS ---
Current Diagnoses Cervicalgia (04/09/19) Low back pain (04/09/19) Visit Care Team Role Provider Type Mary Anderson DO Attending Provider Physician Primary Care Provider Specialty: Family Practice Address: [address] [place] [address], [address], [facility] Email: [email or web address] Visit Number Visit Number 17 Discharge Summary PT-OP-B Current Condition Start: 12/13/18 09:15 Freq: Status: Active Protocol: Document 12/13/18 10:00 AMH (Rec: 12/18/18 15:04 AMH [email or web address]) Current Condition History of Current Condition Onset Date 2006 Current Complaints sharp nerve pain into her buttocks, pain with walking and rolling in bed History of Current Condition Ora describes low back pain that began for her in 2006. She has had many trials of pain control including steriod injections, a nerve block and a nerve ablation. Her pain is moderate and constant rated 5/10. She exercises daily at the gym both cardio and weight lifting and she feels this keeps her going. Pain prevents her from walking long distances andfrom sitting more than 1 hour. She has a history of disc injury in her low back and Chron's disease Prior Treatments and Tests nerve blocks, nerve ablation, steriod injections into the SI joint and lumbar spine X-ray reveals grade 1 anterolesthesis L4-5 and degenerative joint disease, mild scolosis Treatment Goals Patient/Caregiver Goals Treatment goals include pain management ideas and aquatic therapy as a means to exercise Current Functional Impairments (Reported) Functional Limitations- ADL's pain prevents Ora from lifting heavy weights off of the floor, walking long distances, sitting more than a hour, standing more than a hour Functional Limitations- Recreation/ has not been able to run due Hobbies to pain PT-OP-C Subjective Start: 12/13/18 09:15 Freq: Status: Active Protocol: Document 04/09/19 10:15 CLB (Rec: 04/09/19 14:56 CLB [id number]) OP-PT Subjective Patient Comments Patient Comments Pt states that PT Aleksandra encouraging 2-3 more aquatic tx. PT-OP-F Manual Assessment Start: 12/13/18 09:15 Freq: Status: Active Protocol: Document 12/13/18 10:00 AMH (Rec: 12/18/18 15:04 AMH [email or web address]) Manual Assessments Soft Tissue Assessment Soft Tissue Mobility Assessment right>left lumbar paraspinal visable muscle guarding and restrictions PT-OP-J Posture/Palpation/Skin Start: 12/13/18 09:15 Freq: Status: Active Protocol: Document 12/13/18 10:00 AMH (Rec: 12/18/18 15:04 AMH [email or web address]) Posture Evaluation Comments Posture Comments pt stands with a right lateral shift and slight scoliosis with curve to the right Palpation Assessment Location One Palpation Location right parapsinals Palpation Findings Soft Tissue Tightness,Spasm, Muscle Guarding,Tenderness PT-OP-K Range of Motion Start: 12/13/18 09:15 Freq: Status: Active Protocol: Document 12/13/18 10:00 AMH (Rec: 12/18/18 15:04 AMH [email or web address]) Lumbar Spine Range of Motion Lumbar Spine Active Testing Position Standing Flexion 30 Lateral Flexion Left 15 Lateral Flexion Right 15 ROM Limitations Soft Tissue Tightness,Pain Comments flexion creates increased nerve pain into the sacrum PT-OP-L Special Tests Start: 12/13/18 09:15 Freq: Status: Active Protocol: Document 12/13/18 10:00 AMH (Rec: 12/18/18 15:04 AMH [email or web address]) Special Tests Lumbar Spine Special Tests Straight Leg Raise Test Results positive Comments end range only it recreates nerve pain bilaterally PT-OP-M Strength Start: 12/13/18 09:15 Freq: Status: Active Protocol: Document 12/13/18 10:00 AMH (Rec: 12/18/18 15:04 AMH [email or web address]) Trunk Strength Trunk Manual Muscle Testing Core Stabilization decreased activation of the transverse abdominal muscles and Ora reports she often feels as if those muscels have gone to sleep Hip Strength Hip Manual Muscle Testing Right Reason Not Measured WFL Knee Strength Knee Manual Muscle Testing Right Reason Not Measured WFL Ankle/Foot Strength Ankle and Foot Manual Muscle Testing Right Reason Not Measured WFL PT-OP-T Assessment and Plan Start: 12/13/18 09:15 Freq: Status: Active Protocol: Document 12/11/19 13:20 AMH (Rec: 12/11/19 13:21 AMH [email or web address]) Physical Therapy Assessment Assessment Summary Assessment Pt has not been seen due to covid and was not able to begin aquatic therapy. She will be discharged at this time Physical Therapy Plan Discharge Physical Therapy Discharge Reasons No Longer Attending PT
== END 2020-01-07 13:26 ==
LOC: PHYS 10:15
PROVIDERS: PCP Family Medicine; Visit Provider Family Medicine
DX: M54.5 Low back pain (principal); M54.2 Cervicalgia
CPT/HCPCS: 97110; 97113; 97140; 97161; 97535

== ENCOUNTER → 2019-05-09 10:39 | Outpatient (CLI) | payer OTHER, SELFPAY ==
[2019-05-09 12:01] LABS: Add Manual Diff / Slide Review NO; Basophils Absolute Auto 0 /uL (0-100); Basophils Percent Auto 0.5 % (0-2); Eosinophils Absolute Auto 100 /uL (0-450); Eosinophils Percent Auto 1.1 % (2-4); Hematocrit 39.1 % (36-46); Hemoglobin 13.7 g/dL (12.0-16.0); Lymphocytes Absolute Auto 1600 /uL (1100-4500); Mean Corpuscular HGB Conc 35.1 % (30-36); Mean Corpuscular Hemoglobin 33.1 PG (26-34); Mean Corpuscular Volume 94.4 fL (80-100); Monocytes Absolute Auto 500 /uL (0-900); Monocytes Percent Auto 5.5 % (3-14); Neutrophils Absolute Auto 6500 /uL (1500-7000); Neutrophils Percent Auto 74.9 % (50-75); Platelet Count 349 X10^3/uL (150-400); Red Blood Cell Count 4.14 X10^6/uL (4.0-5.2); Red Cell Distribution Width 12.6 % (11.6-14.8); White Blood Cell Count 8.6 X10^3/uL (4.5-11.0)
[2019-05-09 12:39] LABS: HEMOLYSIS < 15 (0-50); Iron 83 ug/dL (37-170)
[2019-05-09 12:48] LABS: C-Reactive Protein Quant < 0.5 mg/dL (<1.0)
[2019-05-09 12:50] LABS: Percent Iron Saturation 34 % (15-50); Total Iron Binding Capacity 245 ug/dL (265-497); Transferrin 208 mg/dL (206-381)
[2019-05-09 13:14] LABS: Ferritin 8 ng/mL (6-137)
== END ==
PROVIDERS: PCP Family Medicine; Referring Provider Family Medicine; Visit Provider Family Medicine
DX: K50.90 Crohn's disease, unspecified, without complications (principal)
CPT/HCPCS: 36415; 82728; 83540; 83550; 85025; 86140

== ENCOUNTER → 2019-06-11 14:05 | Outpatient (CLI) | payer OTHER, SELFPAY ==
--- NOTE | 2019-06-11 | DI.RAD.S_ITS ---
PROCEDURE: XR LUMBAR SPINE 2-3V INDICATIONS: Spinal stenosis, lumbar region without neurogenic claudicati TECHNIQUE: 3 views of the lumbar spine were acquired. COMPARISON: [facility], CR, XR LUMBAR SPINE FLEXION EXTENSION, 02/02/2018, 14:27. [facility], CR, XR LUMBAR SPINE 2-3V, 12/20/2017, 9:26. FINDINGS: Bones: 5 [id number] vertebrae are present. Mild dextroscoliosis centered at the L2-L3 level. Interval posterior/interbody fusion at the L4-L5 level with hardware in disc space are in expected positions. Multilevel disc degeneration, most notably at the L3-L4 level. Mild lower lumbar spine facet joint arthropathy. No vertebral body compression fractures. No suspicious bony lesions. Soft tissues: Overlying bowel gas pattern is normal. No suspicious soft tissue calcifications. IMPRESSION: 1. Previous posterior/interbody fusion at the L3-L4 level. 2. Multilevel spondylosis redemonstrated. Dictated by: Jacques GALAN Interpreted: Ophelia Blanco MD on 06/11/2019 at 14:54 Approved by: Ophelia Blanco M.D. on 06/11/2019 at 17:14
== END ==
PROVIDERS: PCP Family Medicine; Referring Provider Neurological Surgery; Visit Provider Neurological Surgery
DX: M48.061 Spinal stenosis, lumbar region without neurogenic claudication (principal); M47.816 Spondylosis without myelopathy or radiculopathy, lumbar region; Z98.1 Arthrodesis status
CPT/HCPCS: 72100

== ENCOUNTER → 2019-07-16 12:05 | Outpatient (CLI) | payer OTHER, SELFPAY ==
--- NOTE | 2019-07-16 | DI.RAD.S_ITS ---
PROCEDURE: XR LUMBAR SPINE 2-3V INDICATIONS: LOWER BACK PAIN TECHNIQUE: 2 views of the lumbar spine were acquired. COMPARISON: [facility], CR, XR LUMBAR SPINE 2-3V, 12/20/2017, 9:26. [facility], CR, XR LUMBAR SPINE 2-3V, 06/11/2019, 14:04. FINDINGS: Bones: Postoperative changes are seen, with bilateral pedicle screws at the L4 and L5 levels. The screws appear well placed. Vertical fixation rods are seen. A disc spacer is seen at the L4-L5 level. No findings of hardware failure or hardware loosening are seen. 5 nonrib-bearing, lumbar type vertebral bodies are seen. No acute appearing fractures are seen. No suspicious lytic or blastic lesions can be seen. Mild dextroconvex scoliotic curvature is seen. Moderate disc space narrowing is seen at L3-L4 and L4-L5, with mild disc space narrowing at L5-S1. Age-appropriate lower thoracic spine degenerative changes are seen. Soft tissues: Overlying bowel gas pattern is normal. No suspicious soft tissue calcifications. IMPRESSION: Stable postoperative and degenerative changes. Dictated by: Jb Riley M.D. on 07/16/2019 at 12:15 Approved by: Jb Riley M.D. on 07/16/2019 at 12:19
== END ==
PROVIDERS: PCP Family Medicine; Referring Provider Neurological Surgery; Visit Provider Neurological Surgery
DX: M54.5 Low back pain; M48.061 Spinal stenosis, lumbar region without neurogenic claudication; M48.07 Spinal stenosis, lumbosacral region; M47.814 Spondylosis without myelopathy or radiculopathy, thoracic region; M41.9 Scoliosis, unspecified; Z98.1 Arthrodesis status
CPT/HCPCS: 72100

== ENCOUNTER → 2019-08-23 14:01 | Outpatient (CLI) | payer OTHER, SELFPAY ==
--- NOTE | 2019-08-23 | DI.RAD.S_ITS ---
PROCEDURE: XR LUMBAR SPINE 2-3V INDICATIONS: Spinal stenosis, lumbar region without neurogenic TECHNIQUE: 2 views of the lumbar spine were acquired. COMPARISON: [facility], CR, XR LUMBAR SPINE 2-3V, 07/16/2019, 12:18. [facility], CR, XR LUMBAR SPINE 2-3V, 06/11/2019, 14:04. FINDINGS: Bones: 5 [id number] vertebrae are present. There is normal bony alignment except for convex rightward scoliosis centered at L2 previously present. There has been prior posterior fusion with transverse pedicle screws and vertical fixation rods between L4-L5, as was previously the case.. No vertebral body compression fractures. No suspicious bony lesions. Soft tissues: Overlying bowel gas pattern is normal. No suspicious soft tissue calcifications. IMPRESSION: Stable appearance of mild convex rightward scoliosis centered at L2, stable appearance of stabilization fusion procedure L. or-L5. A source of new pain is not found. Dictated by: Emir Connell M.D. on 08/23/2019 at 15:06 Approved by: Emir Connell M.D. on 08/23/2019 at 15:07
== END ==
PROVIDERS: PCP Family Medicine; Referring Provider Family Medicine; Visit Provider Family Medicine
DX: M48.061 Spinal stenosis, lumbar region without neurogenic claudication (principal); M41.86 Other forms of scoliosis, lumbar region; Z98.1 Arthrodesis status
CPT/HCPCS: 72100

== ENCOUNTER → 2019-12-11 15:27 | Outpatient (CLI) | payer OTHER, SELFPAY ==
--- NOTE | 2019-12-11 | DI.RAD.S_ITS ---
PROCEDURE: XR LUMBAR SPINE 1V INDICATIONS: Spinal stenosis, lumbar region without neurogenic claudication TECHNIQUE: 1 views of the lumbar spine were acquired. COMPARISON: [facility], CR, XR LUMBAR SPINE 2-3V, 08/23/2019, 14:04. FINDINGS: Bones: 5 mfz-lab-ptdrrjm vertebrae are present. There is posterior fusion at L4-5. Hardware appears intact. There is unchanged trace retrolisthesis of L2 on L3, L3 on L4. No vertebral body compression fractures. No suspicious bony lesions. Moderate to severe foraminal narrowing is present from L2-3 through L5-S1, unchanged. Soft tissues: Overlying bowel gas pattern is normal. No suspicious soft tissue calcifications. IMPRESSION: Postsurgical changes as above. Dictated by: Ophelia Blanco M.D. on 12/12/2019 at 14:34 Approved by: Ophelia Blanco M.D. on 12/12/2019 at 14:35
== END ==
PROVIDERS: PCP Family Medicine; Referring Provider Neurological Surgery; Visit Provider Neurological Surgery
DX: M48.061 Spinal stenosis, lumbar region without neurogenic claudication (principal); M48.07 Spinal stenosis, lumbosacral region; Z98.1 Arthrodesis status
CPT/HCPCS: 72020

== ENCOUNTER → 2020-01-30 11:11 | Outpatient (CLI) | payer OTHER, SELFPAY ==
[2020-01-30 13:25] LABS: COVID19 -Nasal RAPID Negative (Negative)
== END ==
PROVIDERS: PCP Family Medicine; Visit Provider Physician Assistant
DX: Z11.59 Encounter for screening for other viral diseases (principal)
CPT/HCPCS: 87635

== ENCOUNTER → 2020-06-18 15:41 | Outpatient (CLI) | payer OTHER, SELFPAY ==
[2020-06-18 16:54] LABS: Appearance Urine UA CLEAR; Bilirubin Urine UA NEGATIVE (NEGATIVE); Color Urine UA YELLOW; Glucose Urine UA NEGATIVE (Negative); Ketones Urine UA NEGATIVE (NEGATIVE); Leukocyte Esterase Urine UA 1+ (NEGATIVE); Nitrite Urine UA NEGATIVE (Negative); Occult Blood Urine UA 1+ (Negative); Protein Urine UA NEGATIVE (Negative); Specific Gravity Urine UA 1.015 (1.000-1.035); Urobilinogen Urine UA 0.2 E.U./dL (0.2)
[2020-06-18 16:57] LABS: pH Urine UA 7.5 (4.5-8.0)
[2020-06-18 17:03] LABS: Amorphous Sediment Urine 1+; RBC Urine 1-5/HPF (0-5/HPF); Squamous Epithelial Cell Urine 0-1 /HPF (0-5/HPF); WBC Urine 10-30/HPF (0-5/HPF)
[2020-06-18 17:04] LABS: Bacteria Urine Occasional (0-1); Culture Indicated Urine Specimen Cultured
== END ==
PROVIDERS: PCP Family Medicine; Referring Provider Family Medicine; Visit Provider Family Medicine
DX: R30.0 Dysuria (principal)
CPT/HCPCS: 81001; 87077; 87086; 87147; 87186

== ENCOUNTER → 2020-11-28 09:24 | Outpatient (CLI) | payer OTHER, SELFPAY ==
[2020-11-28 10:41] LABS: Add Manual Diff / Slide Review NO; Basophils Absolute Auto 0 /uL (0-100); Basophils Percent Auto 0.7 % (0-2); Eosinophils Absolute Auto 100 /uL (0-450); Eosinophils Percent Auto 1.7 % (2-4); Hematocrit 39.6 % (36-46); Hemoglobin 13.1 g/dL (12.0-16.0); Lymphocytes Absolute Auto 1400 /uL (1100-4500); Lymphocytes Percent Auto 24.8 % (25-40); Mean Corpuscular Hemoglobin 31.1 PG (26-34); Monocytes Absolute Auto 500 /uL (0-900); Monocytes Percent Auto 8.8 % (3-14); Neutrophils Absolute Auto 3500 /uL (1500-7000); Platelet Count 368 X10^3/uL (150-400); Red Blood Cell Count 4.21 X10^6/uL (4.0-5.2); Red Cell Distribution Width 13.9 % (11.6-14.8); White Blood Cell Count 5.5 X10^3/uL (4.5-11.0)
[2020-11-28 11:06] LABS: Alanine Aminotransferase 20 IU/L (<35); Albumin 4.5 g/dL (3.5-5.0); Albumin Globulin Ratio 1.9 (1.0-2.8); Alkaline Phosphatase 39 U/L (38-126); Aspartate Aminotransferase 30 IU/L (14-36); BUN Creatinine Ratio 17.1 (6-22); Bilirubin Total 0.3 mg/dL (0.2-1.3); Blood Urea Nitrogen 12 mg/dL (7-17); Carbon Dioxide 26 mmol/L (22-32); Chloride 103 mmol/L (98-107); Estimated Glomerular Filt Rate > 60.0 mL/min (>60); Globulin 2.4 g/dL (1.7-4.1); Glucose 82 mg/dL (70-100); HEMOLYSIS < 15 (0-50); Potassium 4.6 mmol/L (3.4-5.1); Sodium 136 mmol/L (137-145); Total Protein 6.9 g/dL (6.3-8.2)
== END ==
PROVIDERS: PCP Family Medicine; Referring Provider Nurse Practitioner; Visit Provider Nurse Practitioner
DX: R42 Dizziness and giddiness (principal)
CPT/HCPCS: 36415; 80053; 85025

== ENCOUNTER → 2021-01-02 10:27 | Outpatient (CLI) | payer OTHER, SELFPAY ==
[2021-01-02 12:30] LABS: COVID19 -Nasal RAPID Negative (Negative)
== END ==
PROVIDERS: PCP Family Medicine; Referring Provider Nurse Practitioner; Visit Provider Nurse Practitioner
DX: Z20.822 Contact with and (suspected) exposure to COVID-19 (principal); J02.9 Acute pharyngitis, unspecified; R53.83 Other fatigue
CPT/HCPCS: 87635

== ENCOUNTER → 2021-01-09 07:07 | Outpatient (CLI) | payer OTHER, SELFPAY ==
--- NOTE | 2021-01-09 07:09 | DI.US.S_ITS ---
PROCEDURE: US ABDOMEN COMPLETE INDICATIONS: RIGHT ABDOMINAL LUMP TECHNIQUE: Real-time scanning was performed of the abdominal and retroperitoneal organs, with image documentation. COMPARISON: None. FINDINGS: Liver: Liver is normal in size and homogeneous in echotexture. Gallbladder: The gallbladder is normal without stones, sludge, wall thickening, or pericholecystic fluid. Biliary ducts: Intrahepatic bile ducts are non-dilated. Extrahepatic bile duct caliber measures 3.7 mm. Normal is 6-7 mm or less in diameter, or 10 mm or less post-cholecystectomy. Pancreas: Visualized portions of the pancreas are sonographically normal. Spleen: Spleen is normal in size and homogeneous in echotexture. Kidneys: Kidneys are normal in size and echotexture. Right kidney measures 10.7 cm long; left kidney measures 10.0 cm long. No hydronephrosis or nephrolithiasis. No solid masses. Aorta: Visualized aorta is normal in caliber at less than 3 cm. Iliacs: Proximal common iliac arteries are normal in caliber at less than 2.5 cm. IVC: Intrahepatic inferior vena cava is patent. Miscellaneous: In the right abdominal wall at the area of palpable lump, there is no fascial defect. No discrete cystic or solid subcutaneous mass. IMPRESSION: 1. Normal abdominal ultrasound. 2. No sonographic finding to correspond to the right abdominal wall lump. A benign lipoma cannot be excluded and would be isoechoic to subcutaneous fat. This however was not seen is a well-circumscribed discrete structure. Dictated by: Velma Chávez M.D. on 01/09/2021 at 8:19 Approved by: Velma Chávez M.D. on 01/09/2021 at 8:22
== END ==
PROVIDERS: PCP Family Medicine; Referring Provider Family Medicine; Visit Provider Family Medicine
DX: R19.00 Intra-abdominal and pelvic swelling, mass and lump, unspecified site (principal)
CPT/HCPCS: 76700

== ENCOUNTER → 2021-03-25 08:05 | Outpatient (CLI) | payer OTHER, SELFPAY ==
--- NOTE | 2021-03-25 09:27 | DI.CT.S_ITS ---
PROCEDURE: CT ABDOMEN PELVIS W CON INDICATIONS: Eval hard mass with normal US 01/09/21, right side TECHNIQUE: After the administration of oral and IV contrast, axial sections were acquired from the lung bases to the pubic symphysis. Coronal and sagittal reformats were performed. For radiation dose reduction, the following was used: automated exposure control, adjustment of mA and/or kV according to patient size. COMPARISON: [facility], CT, ABDOMEN/PELVIS WITH CONTRAST, 05/11/2017, 11:50. FINDINGS: Image quality: Excellent. Lung bases: Unremarkable. Heart: No significant findings. ABDOMEN: Liver: Unremarkable. Gallbladder: Unremarkable. Biliary ducts: Unremarkable. Pancreas: Unremarkable. Spleen: Unremarkable. Adrenal Glands: Unremarkable. Kidneys and Ureters: Unremarkable. Stomach and Bowel: No evidence of intestinal obstruction. Moderate stool burden in the ascending through descending colon. Persistent wall thickening of the rectosigmoid colon. Peritoneum: No abnormal intraperitoneal fluid. No free air. Ventral Wall: No hernia. Abdominal Nodes: No retroperitoneal or mesenteric adenopathy by size criteria. Vessels: Aorta and inferior vena cava are normal in size. PELVIS: Pelvic Organs: Unremarkable. Bilateral adnexal hypoattenuating lesions are seen measuring up to 1.9 cm, which may reflect ovarian cysts. Bladder: Unremarkable. Pelvic Nodes: No enlarged lymph nodes. Miscellaneous: No inguinal hernias are seen. A 2 x 1.7 x 4.5 cm hypoattenuating area is seen in the anterior left hip, adjacent to the iliopsoas (2-76), which may reflect bursitis. Bones: No acute abnormality. Redemonstrated grade 1 anterolisthesis at L4-5 with discectomy change. IMPRESSION: 1. Persistent wall thickening of the rectosigmoid colon, which is nonspecific but can be seen in the setting of under distention versus an infectious or inflammatory process. 2. Hypoattenuating area in the anterior left hip, adjacent to the iliopsoas, which may reflect bursitis. Consider short-term sonographic or MR follow-up as clinically warranted. Dictated by: Paul Mcgill M.D. on 03/25/2021 at 9:39 Approved by: Paul Mcgill M.D. on 03/25/2021 at 9:53
== END ==
PROVIDERS: PCP Family Medicine; Referring Provider Family Medicine; Visit Provider Family Medicine
DX: R19.00 Intra-abdominal and pelvic swelling, mass and lump, unspecified site (principal)
CPT/HCPCS: 74177

== ENCOUNTER → 2021-07-10 08:29 | Outpatient (CLI) | payer OTHER, SELFPAY ==
--- NOTE | 2021-07-10 08:30 | DI.RAD.S_ITS ---
PROCEDURE: XR FINGER RT MIN 2V INDICATIONS: fall, base of thumb pain TECHNIQUE: AP hand, 2 views of the right 1st finger(s) acquired. COMPARISON: None. FINDINGS: Bones: No fractures or dislocations. No suspicious bony lesions. Severe 1st CMC joint osteoarthritis. Soft tissues: No suspicious soft tissue calcifications. IMPRESSION: Severe right 1st CMC joint osteoarthritis. Dictated by: Inessa Killian MD, PhD on 07/10/2021 at 12:01 Approved by: Inessa Killian MD, PhD on 07/10/2021 at 12:01
== END ==
PROVIDERS: PCP Family Medicine; Referring Provider Nurse Practitioner Family; Visit Provider Nurse Practitioner Family
DX: M18.11 Unilateral primary osteoarthritis of first carpometacarpal joint, right hand (principal); M79.641 Pain in right hand
CPT/HCPCS: 73140

== ENCOUNTER → 2021-10-30 12:25 | Outpatient (CLI) | payer OTHER, SELFPAY | PROVIDERS: PCP Pediatrics; Visit Provider Student in an Organized Health Care Education/Training Program | DX: R30.0 Dysuria (principal) | CPT/HCPCS: 87077; 87086; 87186 ==

== ENCOUNTER → 2022-04-17 13:23 | Outpatient (CLI) | payer OTHER, SELFPAY ==
--- NOTE | 2022-04-17 13:24 | DI.MG.S_ITS ---
BILATERAL DIGITAL SCREENING MAMMOGRAM 3D/2D WITH CAD WITH AUGMENTATION: 04/17/2022 CLINICAL: Routine screening. Comparison is made to exams dated: 05/16/2015 mammogram - [facility] and 01/01/2014 mammogram - [facility]. Both breasts are heterogeneously dense, which may obscure small masses (category c / 51-75% glandular tissue). Current study was also evaluated with a Computer Aided Detection (CAD) system. No significant masses, calcifications, or other findings are seen in either breast. There has been no significant interval change. IMPRESSION: NEGATIVE There is no mammographic evidence of malignancy. A 1 year screening mammogram is recommended. Based on the Tyrer Cuzick model (a risk assessment model) the patient's lifetime risk is 15.0% and her 10 year risk is 3.8%. According to the ACR, ACS, and NCCN guidelines, an annual breast MRI exam along with mammogram is recommended if the patient's lifetime risk is 20% or greater. This exam was interpreted at Station ID: [id number]. NOTE: For mammograms, a report in lay terms will be sent to the patient. Approximately 15% of breast malignancies will not be visualized mammographically. In the management of a palpable breast mass, a negative mammogram must not discourage biopsy of a clinically suspicious lesion. Electronically Signed By: Ryan sandoval/giovana:04/19/2022 08:14:53 letter sent: Normal Exam ACR BI-RADS Category 1: Negative [id number]
== END ==
PROVIDERS: PCP Family Medicine; Referring Provider Family Medicine; Visit Provider Family Medicine
DX: Z12.31 Encounter for screening mammogram for malignant neoplasm of breast (principal)
CPT/HCPCS: 77063; 77067

== ENCOUNTER → 2022-07-08 08:03 | Outpatient (CLI) | payer OTHER, SELFPAY ==
[2022-07-08 08:52] LABS: Hematocrit 38.7 % (36-46); Hemoglobin 13.4 g/dL (12.0-16.0); Mean Corpuscular HGB Conc 34.5 % (30-36); Mean Corpuscular Hemoglobin 32.3 PG (26-34); Mean Corpuscular Volume 93.5 fL (80-100); Platelet Count 421 X10^3/uL (150-400); Red Blood Cell Count 4.15 X10^6/uL (4.0-5.2); Red Cell Distribution Width 13.8 % (11.6-14.8); White Blood Cell Count 6.2 X10^3/uL (4.5-11.0)
[2022-07-08 09:02] LABS: BUN Creatinine Ratio 11.5 (6-22); Blood Urea Nitrogen 9 mg/dL (7-17); Calcium 9.4 mg/dL (8.4-10.2); Carbon Dioxide 31 mmol/L (22-32); Chloride 98 mmol/L (98-107); Estimated Glomerular Filt Rate > 60 mL/min (>60); Glucose 69 mg/dL (70-100); HEMOLYSIS < 15 (0-50); Potassium 4.5 mmol/L (3.4-5.1); Sodium 136 mmol/L (137-145)
== END ==
PROVIDERS: PCP Family Medicine; Referring Provider Family Medicine; Visit Provider Family Medicine
DX: R55 Syncope and collapse (principal)
CPT/HCPCS: 36415; 80048; 84443; 85027

== ENCOUNTER 2022-07-10 15:13 | Emergency (ER) | payer OTHER, SELFPAY ==
[2022-07-10] VITALS (15 sets, daily range): BP systolic 102–128; BP diastolic 60–79; PULSE 70–84; RESP 13–27; TEMP 36.5–36.9; O2SAT 97–100; BMI 21.1
--- NOTE | 2022-07-10 15:25 | DI.RAD.S_ITS ---
PROCEDURE: XR HIP W PEL IF DONE LT 2V INDICATIONS: recent surgery, ? dislocation TECHNIQUE: 3 views of the hip were acquired. COMPARISON: [facility], CR, XR HIP W PEL IF DONE LT 2V, 12/20/2017, 9:26. FINDINGS: Bones: Anteriorly dislocated left total hip arthroplasty noted. Right hip unremarkable. And paragraphs intrauterine device in place. Lower lumbar spine instrumented interbody fusion Soft tissues: No suspicious soft tissue calcifications or masses. IMPRESSION: Anterior dislocation, left total hip arthroplasty Approved by: Candido Austin M.D. on 07/10/2022 at 15:19
[2022-07-10 16:13] LABS: Alanine Aminotransferase 20 IU/L (<35); Albumin 4.7 g/dL (3.5-5.0); Albumin Globulin Ratio 1.6 (1.0-2.8); Alkaline Phosphatase 73 U/L (38-126); Aspartate Aminotransferase 26 IU/L (14-36); BUN Creatinine Ratio 14.7 (6-22); Bilirubin Total 0.3 mg/dL (0.2-1.3); Blood Urea Nitrogen 10 mg/dL (7-17); Carbon Dioxide 28 mmol/L (22-32); Chloride 98 mmol/L (98-107); Estimated Glomerular Filt Rate > 60 mL/min (>60); Globulin 2.9 g/dL (1.7-4.1); Glucose 89 mg/dL (70-100); HEMOLYSIS 22 (0-50); Lipase 223 U/L (23-300); Potassium 3.6 mmol/L (3.4-5.1); Sodium 136 mmol/L (137-145); Total Protein 7.6 g/dL (6.3-8.2)
[2022-07-10 16:14] LABS: Add Manual Diff / Slide Review NO; Basophils Absolute Auto 100 /uL (0-100); Basophils Percent Auto 0.9 % (0-2); Eosinophils Absolute Auto 200 /uL (0-450); Eosinophils Percent Auto 1.8 % (2-4); Hematocrit 38.4 % (36-46); Hemoglobin 13.2 g/dL (12.0-16.0); Lymphocytes Absolute Auto 1600 /uL (1100-4500); Lymphocytes Percent Auto 16.9 % (25-40); Mean Corpuscular HGB Conc 34.4 % (30-36); Mean Corpuscular Volume 92.8 fL (80-100); Monocytes Absolute Auto 500 /uL (0-900); Monocytes Percent Auto 5.5 % (3-14); Neutrophils Absolute Auto 6900 /uL (1500-7000); Neutrophils Percent Auto 74.9 % (50-75); Platelet Count 373 X10^3/uL (150-400); Red Blood Cell Count 4.13 X10^6/uL (4.0-5.2); Red Cell Distribution Width 13.6 % (11.6-14.8); White Blood Cell Count 9.3 X10^3/uL (4.5-11.0)
[2022-07-10 16:30] LABS: COVID19 -Nasal RAPID Negative (Negative)
[2022-07-10] MEDS: fentaNYL 100 MCG/2 ML INJ 50 MCG IV (17:35)
--- NOTE | 2022-07-10 18:21 | ED_ITS ---
HPI - Extremity Problem General Chief complaint: Extremity Problem,Nontraumatic Stated complaint: hip replacement L 1 mo ago, now ? dislocation Time Seen by Provider: 07/10/22 16:33 Source: patient and EMS Mode of arrival: EMS History of Present Illness HPI Narrative: Patient is a 52-year-old female. Underwent a left hip replacement approximately 1 month ago. She states that today she was trying to move an object. She was bent over and somewhat of a awkward position. She was putting quite a bit of pressure on her leg. States she felt a pop in his been unable to bear weight on her left leg since then. She reports no other injuries from the event. She arrived by EMS. No other injuries from the event. No interventions to her left hip prior to arrival. Related Data Home Medications Medication Instructions Recorded Confirmed [prebiotics] ##0 05/12/17 03/30/22 omega 5-xai-jjh-fish oil 1,000 mg 1,000 mg PO ##0 05/12/17 03/30/22 (120 mg-180 mg) capsule (Fish Oil) Previous Rx's Medication Instructions Recorded cholecalciferol (vitamin D3) 50 2,000 unit PO DAILY #90 caps 09/27/17 mcg (2,000 unit) capsule diclofenac sodium 1 % topical gel 2 g topical QID arthritis pain 11/23/18 #100 grams tranexamic acid 650 mg tablet 1,300 mg PO Q8H PRN heavy menses 5 09/24/21 days #30 tabs bupropion HCl 200 mg tablet,12 hr See Rx Instructions .Route 01/19/22 sustained-release .COMPLEX #180 tabs gabapentin 300 mg capsule See Rx Instructions .Route 04/23/22 .COMPLEX #540 caps Allergies Allergy/AdvReac Type Severity Reaction Status Date / Time No Known Drug Allergies Allergy Verified 07/10/22 15:21 Review of Systems Constitutional Constitutional: Reports system reviewed and no additional complaints, except as documented Musculoskeletal Musculoskeletal: Reports system reviewed and no additional complaints, except as documented Integumentary/Breasts Skin/Breast: Reports system reviewed and no additional complaints, except as documented Neurologic Neurologic: Reports system reviewed and no additional complaints, except as documented Hematologic/Lymphatic On Anticoagulants: No Patient History Medical History Anemia (1996) Anxiety Arm fracture (1976) Chicken pox (1975) Chronic back pain (~2006) Colon polyps Crohn's colitis (1995) Depression Facet arthropathy, lumbosacral Fecal incontinence (1997) Fibroids (2009) Foot pain (~2018) GI bleeding (1995) Hemorrhoids (1995) IBS (irritable bowel syndrome) (1995) Joint ache (2013) Lumbar spinal stenosis Lumbosacral radiculopathy at L4 Osteoarthritis (2006) Polymyalgia rheumatica Requests hormone replacement therapy Sacroiliitis (~2021) Scoliosis Spondylolisthesis at L4-L5 level Substance abuse (~2001) Surgical History (Updated 06/30/22 @ 10:02 by Danika Francis DO) Anesthesia History of breast augmentation (06/07/11) History of lumbar spinal fusion (~05/2019) History of surgery (1997) Status post delivery (08/25/09) Status post colonoscopy (2011) Family History Brother Healthy adult Father Ankylosing spondylitis Head injury Alcoholism Fall Asthma Grandmother Heart disease Diabetes mellitus Mother Age: 79 High cholesterol Amputated toe Neuropathy Vision changes Diabetes mellitus Grandfather Mental health problem Dementia Grandmother Stroke Smoking Amputation of leg Sister Age: 47 Hx of idiopathic seizure Mental health problem Grandfather Hemochromatosis Social History Smoking Status: Former smoker Smoking Status: Former smoker Substance Use Type: does not use Exam Initial Vital Signs Initial Vital Signs: Vital Signs Temperature 98.5 F 07/10/22 15:21 Pulse Rate 78 07/10/22 15:21 Respiratory Rate 16 07/10/22 15:21 Blood Pressure 119/79 07/10/22 15:21 Pulse Oximetry 100 07/10/22 15:21 Oxygen Delivery Method Room Air 07/10/22 15:21 HENMT Head: normal to inspection and normocephalic Resp Effort & Inspection: normal respiratory effort Cardio Rate: regular rate Neuro Sensory Exam: no sensory deficits noted Extrem Other: Left leg is shortened. Does have tenderness to palpation of the left hip. Right lower extremity and upper extremities are unremarkable. Procedures Orthopedic Joint Reduction Joint #1: Time Out Performed: Yes Side: left Joint Reduction Location: hip Analgesia: procedural sedation Post-reduction neuro exam: intact Post-reduction vascular: intact Post Reduction X-Ray Obtained: Yes Post Reduction X-Ray Results: reduced Splint Applied: Yes (Knee immobilizer) Patient Tolerated Procedure: Well and No complications Orthopedic Splinting/Casting Injury #1: Side: left Lower Extremity Injury Location: upper leg Lower Extremity Immobilizer: knee immobilizer Post splinting neuro exam: intact Post splinting vascular exam: intact Placed by: Provider Procedural Sedation Consent signed: Yes Time out performed: Yes Indication: fracture/dislocation reduction ASA Class: II Mallampati Airway Classification: Class II Preparation: phototypesetting equipment monitor applied, pulse oximeter, capnometry used, supplemental O2 applied, suction/airway equipment at bedside and IV secured IV Propofol dose (mg): 60 Intraservice time/total sedation time (min): 15 ED Sedation Level: Moderate (Concious) Patient Tolerated Procedure: Well and No complications Course Orders Ordered: ED Orders 07/10/22 18:36 XR hip w pel if done LT 2V Stat Discontinued Medications Fentanyl (Fentanyl 100 Mcg/2 Ml Inj) 50 mcg IV NOW ONE Stop: 07/10/22 17:27 Last Admin: 07/10/22 17:35 Dose: 50 mcg Documented By: MO Sodium Chloride (Normal Saline 0.9%) 1,000 mls @ 125 mls/hr IV CONT ALISON Last Infusion: 07/10/22 19:25 Dose: 0 mls/hr Documented By: Admin: 07/10/22 18:24 Dose: 125 mls/hr Documented By: AT Propofol (Propofol 200 Mg/20 Ml Vial) 100 mg IV NOW ONE Stop: 07/10/22 18:07 Last Admin: 07/10/22 18:31 Dose: 60 mg Documented By: AT Vital Signs Vital signs: Vital Signs - 8 hr 07/10/22 18:31 07/10/22 18:30 07/10/22 18:31 Temperature Pulse Rate 80 78 84 Respiratory Rate 16 21 18 Blood Pressure Pulse Oximetry 100 100 Oxygen Delivery Method Room Air 07/10/22 18:31 07/10/22 18:35 07/10/22 18:35 Temperature Pulse Rate 77 Respiratory Rate 14 Blood Pressure 119/74 112/72 Pulse Oximetry 100 Oxygen Delivery Method Room Air 07/10/22 18:40 07/10/22 18:40 07/10/22 18:45 Temperature Pulse Rate 75 Respiratory Rate 19 Blood Pressure 108/68 110/71 Pulse Oximetry 100 Oxygen Delivery Method Room Air 07/10/22 18:45 07/10/22 18:50 07/10/22 18:50 Temperature Pulse Rate 78 77 Respiratory Rate 18 18 Blood Pressure 104/65 Pulse Oximetry 100 99 Oxygen Delivery Method Room Air 07/10/22 18:55 07/10/22 18:55 07/10/22 18:59 Temperature Pulse Rate 77 74 Respiratory Rate 17 13 Blood Pressure 102/63 Pulse Oximetry 97 99 Oxygen Delivery Method Room Air Room Air 07/10/22 19:00 07/10/22 19:00 07/10/22 19:15 Temperature Pulse Rate 77 Respiratory Rate 18 Blood Pressure 106/67 106/60 Pulse Oximetry 99 Oxygen Delivery Method 07/10/22 19:15 07/10/22 19:47 Temperature 97.7 F Pulse Rate 84 70 Respiratory Rate 27 H 16 Blood Pressure 128/74 Pulse Oximetry 97 99 Oxygen Delivery Method Room Air Room Air MDM - Extremity (Nontraumatic) Lab Data 07/10/22 15:57 07/10/22 15:57 Labs: Lab Results 07/10/22 07/10/22 07/10/22 Range/Units 15:57 15:57 15:57 WBC 9.3 (4.5-11.0) X10^3/uL RBC 4.13 (4.0-5.2) X10^6/uL Hgb 13.2 (12.0-16.0) g/dL Hct 38.4 (36-46) % MCV 92.8 (80-100) fL MCH 32.0 (26-34) PG MCHC 34.4 (30-36) % RDW 13.6 (11.6-14.8) % Plt Count 373 (150-400) X10^3/uL Neut % (Auto) 74.9 (50-75) % Lymph % (Auto) 16.9 L (25-40) % Winn % (Auto) 5.5 (3-14) % Eos % (Auto) 1.8 L (2-4) % Baso % (Auto) 0.9 (0-2) % Neut # (Auto) 6900 (0784-1925) /uL Lymph # (Auto) 1600 (6716-0098) /uL Winn # (Auto) 500 (0-900) /uL Eos # (Auto) 200 (0-450) /uL Baso # (Auto) 100 (0-100) /uL Sodium 136 L (137-145) mmol/L Potassium 3.6 (3.4-5.1) mmol/L Chloride 98 (98-107) mmol/L Carbon Dioxide 28 (22-32) mmol/L BUN 10 (7-17) mg/dL Creatinine 0.68 (0.52-1.04) mg/dL Estimated GFR > 60 (>60) mL/min BUN/Creatinine Ratio 14.7 (6-22) Glucose 89 (70-100) mg/dL Calcium 9.0 (8.4-10.2) mg/dL Total Bilirubin 0.3 (0.2-1.3) mg/dL AST 26 (14-36) IU/L ALT 20 (<35) IU/L Alkaline Phosphatase 73 (38-126) U/L Total Protein 7.6 (6.3-8.2) g/dL Albumin 4.7 (3.5-5.0) g/dL Globulin 2.9 (1.7-4.1) g/dL Albumin/Globulin Ratio 1.6 (1.0-2.8) Lipase 223 (23-300) U/L SARS-CoV-2 (PCR) Negative (Negative) Imaging Data Extremity x-ray #1: Radiologist's Impression: PROCEDURE:? XR HIP W PEL IF DONE LT 2V ? INDICATIONS:? recent surgery, ? dislocation ? TECHNIQUE:? 3 views of the hip were acquired.? ? COMPARISON:? [facility], , XR HIP W PEL IF DONE LT 2V, 12/20/2017, 9:26. ? FINDINGS:? ? Bones:? Anteriorly dislocated left total hip arthroplasty noted.? Right hip unremarkable. ?And paragraphs intrauterine device in place.? Lower lumbar spine instrumented interbody fusion ? Soft tissues:? No suspicious soft tissue calcifications or masses.? ? IMPRESSION:? ? ? Anterior dislocation, left total hip arthroplasty Extremity x-ray #2: Radiologist's Impression: PROCEDURE:? XR HIP W PEL IF DONE LT 2V ? INDICATIONS:? reduction ? TECHNIQUE:? AP pelvis with lateral view(s) of the left hip(s).? ? COMPARISON:? [facility], , XR HIP W PEL IF DONE LT 2V, 07/10/2022, 15:24. ? FINDINGS:? There is left hip total arthroplasty. Left hip prosthesis dislocation is reduced.? No Nan prosthesis fracture.? Postsurgical changes are noted in the lower lumbar spine. ? ? IMPRESSION:? Left hip prosthesis is reduced.? Left hip prosthesis is in anatomic alignment. MDM Narrative Medical decision making narrative: Patient does have a left anterior hip dislocation. Patient was sedated in the hip was reduced without issue. She is placed in a knee immobilizer to help av oid putting her in a position where her hip could dislocate once again. She does have a walker at home. Here in the emergency department she was able to put pressure on her leg and walk afterwards. Will discharge patient home with return precautions and follow-up instructions. She expressed understanding and agreement. There were no fractures noted on the x-rays. No other injuries from the event earlier today. Discharge Plan Departure Patient Disposition: Home Clinical Impression: Anterior dislocation of left hip Instructions: DI for Hip Dislocation -- Adult Activity Restrictions/Additional Instructions: I do recommend you use the walker at home like we discussed the same with the knee immobilizer. You can take the immobilizer off to sleep at night and to shower and if your sitting at home. I recommend you contact the operative orthopedic surgeon to let him/her know that this occurred. Return to the emergency department for new or worsening symptoms. Prescriptions: No Action [prebiotics] Qty: 0 omega 7-ehi-rzy-fish oil [Fish Oil] 1,000 MG capsule 1,000 mg PO Qty: 0 diclofenac sodium 1 % gel 2 g TOP QID MDD 8 gm Qty: 100 5RF Rx Instructions: apply to low back bupropion HCl 200 mg tablet sustained-release 12 hr See Rx Instructions .ROUTE .COMPLEX Qty: 180 2RF Dose Instruction: take 1 tablet by mouth twice a day Rx Instructions: take 1 tablet by mouth twice a day gabapentin 300 mg capsule See Rx Instructions .ROUTE .COMPLEX Qty: 540 2RF Dose Instruction: take 2 capsules by mouth three times a day Rx Instructions: take 2 capsules by mouth three times a day cholecalciferol (vitamin D3) 2,000 unit capsule 2,000 unit PO DAILY Qty: 90 0RF Rx Instructions: OTC tranexamic acid 650 mg tablet 1,300 mg PO Q8H PRN (Reason: heavy menses) 5 Days Qty: 30 6RF Rx Instructions: take up to 5 days as needed for heavy menstrual flow Referrals: Danika Francis DO [Primary Care Provider] - Stand Alone Forms: Patient Portal/API
[2022-07-10] MEDS: SODIUM CHLORIDE 0.9% 1,000 ML 125 ML IV (18:24)
[2022-07-10] MEDS: propofoL 200 MG/20 ML VIAL 100 MG IV (18:31)
--- NOTE | 2022-07-10 18:36 | DI.RAD.S_ITS ---
PROCEDURE: XR HIP W PEL IF DONE LT 2V INDICATIONS: reduction TECHNIQUE: AP pelvis with lateral view(s) of the left hip(s). COMPARISON: [facility], , XR HIP W PEL IF DONE LT 2V, 07/10/2022, 15:24. FINDINGS: There is left hip total arthroplasty. Left hip prosthesis dislocation is reduced. No Nan prosthesis fracture. Postsurgical changes are noted in the lower lumbar spine. IMPRESSION: Left hip prosthesis is reduced. Left hip prosthesis is in anatomic alignment. Dictated by: Yoel Sheppard M.D. on 07/10/2022 at 19:08 Approved by: Yoel Sheppard M.D. on 07/10/2022 at 19:10
--- NOTE | 2022-07-10 19:26 | PC.NURSE ---
Patient ambulatory with walker.
== END 2022-07-10 19:48 | disposition home or self-care (01) ==
PROVIDERS: Emergency Medicine; Emergency Provider Emergency Medicine; PCP Family Medicine
DX: S73.035A Other anterior dislocation of left hip, initial encounter (principal); Z20.822 Contact with and (suspected) exposure to COVID-19
CPT/HCPCS: 27265; 36415; 73502; 80053; 83690; 85025; 87635; 96361; 96374; 99152; 99284; 99285; C9803; J2704; J3010

== ENCOUNTER → 2022-07-19 08:21 | Outpatient (CLI) | payer OTHER, SELFPAY ==
--- NOTE | 2022-07-19 08:22 | DI.CT.S_ITS ---
PROCEDURE: CT SINUS SCREEN WO CON INDICATIONS: sinus infection x 2 months TECHNIQUE: Noncontrast 3.0 mm axial images acquired from the frontal sinuses to the mid-sella, with coronal and sagittal reformats. For radiation dose reduction, the following was used: automated exposure control, adjustment of mA and/or kV according to patient size. COMPARISON: None. FINDINGS: Image quality: Excellent. Maxillary Sinuses: No bony remodeling or destruction. Sinuses are clear. Ethmoid Air Cells: No bony remodeling or destruction. Sinuses are clear. Sphenoid Sinuses: No bony remodeling or destruction. Sinuses are clear. Frontal Sinuses: No bony remodeling or destruction. Sinuses are clear. Ostiomeatal Complexes: The ostiomeatal complexes are patent, yet they are constitutionally narrowed, with bilateral Kylie cells. Miscellaneous: Visualized intra-orbital contents are normal. No bryce bullosa or paradoxical turbinate curvature. No nasal septal deviation. IMPRESSION: No active paranasal sinus disease is seen. The ostiomeatal complexes are patent, yet they are constitutionally narrowed, with bilateral Kylie cells. Dictated by: Jb Riley M.D. on 07/19/2022 at 9:15 Approved by: Jb Riley M.D. on 07/19/2022 at 9:16
== END ==
PROVIDERS: PCP Family Medicine; Referring Provider Family Medicine; Visit Provider Family Medicine
DX: J34.89 Other specified disorders of nose and nasal sinuses (principal)
CPT/HCPCS: 70486

== ENCOUNTER 2022-09-29 12:49 | Day surgery (SDC) | payer OTHER, SELFPAY ==
--- NOTE | 2022-09-29 | PATH_ITS ---
[facility] Accession Number: [id number] No. of containers..04 Tissue . 01 Material submitted: . PART A: colon - 60, POLYPS PART B: colon - CHRON'S PART C: colon - TRANSVERSE PART D: colon - LEFT COLON . 01 Clinical history: . B) R/O DYSPLASIA . 01 Diagnosis: A. Colon Polyps at 60 cm: Colonic mucosa with prominent benign lymphoid aggregates. Negative for dysplasia or malignancy. . B-C. Colon, As Designated, Biopsies: Colonic mucosa with no significant diagnostic abnormality. Negative for active inflammation, granulomas, dysplasia, and malignancy. . D. Left Colon, Biopsy: Mild active colitis with nonnecrotizing granuloma; see comment. Negative for dysplasia or malignancy. [facility] 10/06/2022 1347 Local . 01 Comment: Part D: The findings in the left colon biopsy are consistent with the clinical history of Crohn's disease. . 01 Electronically signed: . Harris Duke MD, PhD, Pathologist NPI- [id number] . 01 Gross description: . Part A: 60, POLYPS: Received in formalin is 2 fragment(s) of cox, soft tissue measuring 0.3 x 0.2 x 0.2 cm to 0.3 x 0.1 x 0.1 cm submitted entirely in 1 cassette(s) Part B: CHRON'S: Received in formalin is multiple fragment(s) of cox, soft tissue measuring 0.8 x 0.4 x 0.1 cm in aggregate submitted entirely in 1 cassette(s) Part C: TRANSVERSE: Received in formalin is multiple fragment(s) of cox, soft tissue measuring 1.2 x 0.5 x 0.2 cm in aggregate submitted entirely in 1 cassette(s) Part D: LEFT COLON: Received in formalin is multiple fragment(s) of cox, soft tissue measuring 1.4 x 0.6 x 0.1 cm in aggregate submitted entirely in 1 cassette(s) /[facility] 10/05/2022 1118 Local . 01 Pathologist provided ICD-10: K50.90, K63.5 . 01 CPT . 490710, 012996, 333178, 241645 Specimen Comment: A courtesy copy of this report has been sent to [phone] Performed at: 01 [facility] [address] [place] [address], [place], [place] [id number] MD Emmanuel Lopes MD Phone: [phone]
[2022-09-29 13:41] VITALS: BMI 21.9
--- NOTE | 2022-09-29 13:41 | PM.HP.1 ---
History of Present Illness History of Present Illness Date Patient Seen: 09/29/22 Chief complaint: SDC Narrative: Longstanding history of Crohn's disease though under control in off any medications. Due for follow-up colonoscopy at a 3 year interval. Diagnosis was 25 years ago. [facility] Medical History (Updated 09/15/22 @ 09:54 by Danika Francis DO) Anemia (1996) Anxiety Arm fracture (1976) Chicken pox (1975) Chronic back pain (~2006) Colon polyps Crohn's colitis (1995) Depression Facet arthropathy, lumbosacral Fecal incontinence (1997) Fibroids (2009) Foot pain (~2018) GI bleeding (1995) Hemorrhoids (1995) IBS (irritable bowel syndrome) (1995) Joint ache (2013) Lumbar spinal stenosis Lumbosacral radiculopathy at L4 Osteoarthritis (2006) Ovarian cyst Polymyalgia rheumatica Requests hormone replacement therapy Sacroiliitis (~2021) Scoliosis Sinusitis, maxillary, chronic Spondylolisthesis at L4-L5 level Substance abuse (~2001) Surgical History (Updated 09/15/22 @ 09:54 by Danika Francis DO) Anesthesia History of breast augmentation (06/07/11) History of lumbar spinal fusion (~05/2019) History of surgery (1997) Status post delivery (08/25/09) Status post colonoscopy (2011) Status post left hip replacement Family History Brother Healthy adult Father Ankylosing spondylitis Head injury Alcoholism Fall Asthma Grandmother Heart disease Diabetes mellitus Mother Age: 79 High cholesterol Amputated toe Neuropathy Vision changes Diabetes mellitus Grandfather Mental health problem Dementia Grandmother Stroke Smoking Amputation of leg Sister Age: 47 Hx of idiopathic seizure Mental health problem Grandfather Hemochromatosis Social History Smoking Status: Former smoker Meds Home Medications and Allergies Home Medications Medication Instructions Recorded Confirmed Type [prebiotics] ##0 05/12/17 03/30/22 History omega 9-chd-ayw-fish oil 1,000 mg 1,000 mg PO DAILY ##0 05/12/17 09/29/22 History (120 mg-180 mg) capsule (Fish Oil) cholecalciferol (vitamin D3) 50 2,000 unit PO DAILY #90 caps 09/27/17 09/29/22 Rx mcg (2,000 unit) capsule diclofenac sodium 1 % topical gel 2 g topical QID arthritis pain 11/23/18 09/29/22 Rx #100 grams bupropion HCl 200 mg tablet,12 hr See Rx Instructions .Route 01/19/22 09/29/22 Rx sustained-release .COMPLEX #180 tabs gabapentin 300 mg capsule See Rx Instructions .Route 07/22/22 09/29/22 Rx .COMPLEX #720 caps metformin 500 mg tablet 500 mg PO BIDWMEAL #180 tabs 09/15/22 09/29/22 Rx Allergies Allergy/AdvReac Type Severity Reaction Status Date / Time No Known Drug Allergies Allergy Verified 09/29/22 13:20 Exam Narrative Exam Narrative: Oropharynx free of lesions Chest clear to auscultation percussion Cardiac exam reveals no S3 or murmur Assessment & Plan Assessment & Plan narrative: Longstanding history of Crohn's disease with last colonoscopy in 2019. Need for screening. Risks, benefits, alternatives have been explained.
--- NOTE | 2022-09-29 13:42 | PM.OP.COLON ---
Operative Date/Time/Diagnoses Date of procedure: 09/29/22 Pre-op diagnosis: See indications and findings Procedure & Clinicians Study performed: Colonoscopy Indications: Longstanding history of Crohn's disease need for colorectal cancer screening Surgeon: Lena Bowling Procedure Notes Procedure in detail: After informed consent was obtained the patient was placed in left lateral decubitus position. The video colonoscope was introduced the rectum slowly advanced to the cecum. Preparation was good. On slow withdrawal mucosa was carefully examined. The scope was removed. The patient tolerated procedure well. Blood loss none Complications none Sedation mac Findings 1. Very tortuous colon to cecum 2. Mild patchy erythema throughout with a variety of pseudopolyps throughout. Biopsies taken in 1 segment in the in the left colon specifically for the polyps at otherwise 2 biopsies were taken every 10 cm and placed in right, left, and transverse colon biopsies. 3. Unable and to enter the terminal ileum We will review the pathology and follow up with her by telephone. Typically follow-up in this situation would be 1 to possibly 2 years
[2022-09-29 13:47] VITALS: BP 108/71; PULSE 92; RESP 16; TEMP 37.2; O2SAT 99
[2022-09-29] MEDS: LACTATED RINGERS 1,000 ML 42 ML IV (13:50)
[2022-09-29 15:07] VITALS: BP 91/63; PULSE 81; RESP 11; TEMP 36.4; O2SAT 95
[2022-09-29 15:10] VITALS: BP 96/63; PULSE 74; RESP 17; O2SAT 100
[2022-09-29 15:14] VITALS: BP 101/64; PULSE 74; RESP 15; O2SAT 100
[2022-09-29 15:25] VITALS: BP 110/80; PULSE 90; RESP 15; TEMP 36.2; O2SAT 100
[2022-09-29 15:40] VITALS: BP 109/69; PULSE 75; RESP 16; TEMP 36.3; O2SAT 98
== END 2022-09-29 15:45 | disposition home or self-care (01) ==
PROVIDERS: PCP Family Medicine; Referring Provider Internal Medicine Gastroenterology; Visit Provider Internal Medicine Gastroenterology
PROC: 0DJD8ZZ Inspection of Lower Intestinal Tract, Via Natural or Artificial Opening Endoscopic (ICD-10-PCS; CPT 45378; principal; 2022-09-29 14:00)
DX: K50.90 Crohn's disease, unspecified, without complications (principal)
CPT/HCPCS: 45384; J2704

== ENCOUNTER → 2023-01-11 15:54 | Outpatient (CLI) | payer OTHER, SELFPAY ==
--- NOTE | 2023-01-11 15:56 | DI.RAD.S_ITS ---
PROCEDURE: XR CERVICAL SPINE 2V OR 3V INDICATIONS: neck pain, nerve pain since September TECHNIQUE: 3 view(s) of the cervical spine were acquired. COMPARISON: None. FINDINGS: Bones: No fractures or dislocations to the T1 level. The lateral masses of C1 appear intact on the odontoid view. No suspicious bony lesions. Severe C4-C5, C5-C6 and C6-C7 degenerative disc disease. Mild C7-T1 degenerative disc disease. Mild facet hypertrophy throughout the cervical spine. Moderate bilateral C4-C5, C5-C6 and C6-C7 uncovertebral hypertrophy. Soft tissues: No prevertebral soft tissue swelling. IMPRESSION: 1. Multilevel degenerative disc disease. 2. Multilevel facet and uncovertebral arthropathy. 3. No fracture. No acute osseous lesion. If symptoms and/or clinical suspicion for pathology persists, evaluation with MRI should be considered for further assessment. Dictated by: Inessa Killian MD, PhD on 01/11/2023 at 17:02 Approved by: Inessa Killian MD, PhD on 01/11/2023 at 17:03
--- NOTE | 2023-01-11 15:56 | DI.RAD.S_ITS ---
PROCEDURE: XR SHOULDER LT MIN 2V INDICATIONS: left shoulder pain since September TECHNIQUE: 3 views of the shoulder were acquired. COMPARISON: [facility], CR, XR SHOULDER 4 VW LT, 11/26/2015, 13:08. FINDINGS: Bones: No fractures or dislocations. No suspicious bony lesions. Visualized ribs appear intact. Soft tissues: No suspicious soft tissue calcifications. IMPRESSION: No acute osseous lesion. If symptoms and/or clinical suspicion for pathology persists, further assessment with advanced imaging (e.g. CT, MRI or bone scan) should be considered. Dictated by: Inessa Killian MD, PhD on 01/11/2023 at 17:03 Approved by: Inessa Killian MD, PhD on 01/11/2023 at 17:04
== END ==
PROVIDERS: PCP Family Medicine; Referring Provider Physician Assistant; Visit Provider Physician Assistant
DX: M50.321 Other cervical disc degeneration at C4-C5 level (principal); M47.812 Spondylosis without myelopathy or radiculopathy, cervical region; M25.512 Pain in left shoulder
CPT/HCPCS: 72040; 73030

== ENCOUNTER → 2023-03-29 12:54 | Outpatient (CLI) | payer OTHER, SELFPAY ==
--- NOTE | 2023-03-29 12:57 | DI.RAD.S_ITS ---
PROCEDURE: XR HAND RT MIN 3V INDICATIONS: MCP 2nd digit swelling and pain after injury TECHNIQUE: 3 views of the hand(s) acquired. COMPARISON: None. FINDINGS: Bones: No fractures or dislocations. Moderate to severe 1st CMC joint osteoarthritic changes are seen. Osteoarthritic changes also noted at radiocarpal joint and scaphoid trapezial joint. Carpal bones are normally aligned. No suspicious bony lesions. Soft tissues: No suspicious soft tissue calcifications. IMPRESSION: Osteoarthritic changes along radial aspect of right wrist particularly involving 1st CMC joint. No right hand fracture or dislocation. No gross bony erosive changes. No soft tissue abnormalities. Dictated by: Cheo Hunt M.D. on 03/29/2023 at 14:57 Approved by: Cheo Hunt M.D. on 03/29/2023 at 14:58
== END ==
LOC: RAD 12:56
PROVIDERS: PCP Family Medicine; Referring Provider Family Medicine; Visit Provider Family Medicine
DX: S69.91XA Unspecified injury of right wrist, hand and finger(s), initial encounter (principal); X58.XXXA Exposure to other specified factors, initial encounter
CPT/HCPCS: 73130

== ENCOUNTER → 2023-09-15 16:56 | Outpatient (CLI) | payer OTHER, SELFPAY ==
[2023-09-15 17:33] LABS: Add Manual Diff / Slide Review NO; Basophils Absolute Auto 100 /uL (0-100); Basophils Percent Auto 0.8 % (0-2); Eosinophils Absolute Auto 100 /uL (0-450); Eosinophils Percent Auto 0.9 % (2-4); Hematocrit 42.8 % (36-46); Hemoglobin 14.7 g/dL (12.0-16.0); Lymphocytes Absolute Auto 1900 /uL (1100-4500); Lymphocytes Percent Auto 22.7 % (25-40); Mean Corpuscular HGB Conc 34.4 % (30-36); Mean Corpuscular Hemoglobin 33.1 PG (26-34); Monocytes Absolute Auto 500 /uL (0-900); Monocytes Percent Auto 5.7 % (3-14); Neutrophils Absolute Auto 6000 /uL (1500-7000); Neutrophils Percent Auto 69.9 % (50-75); Platelet Count 402 X10^3/uL (150-400); Red Blood Cell Count 4.45 X10^6/uL (4.0-5.2); Red Cell Distribution Width 13.3 % (11.6-14.8); White Blood Cell Count 8.6 X10^3/uL (4.5-11.0)
[2023-09-15 17:58] LABS: Alanine Aminotransferase 24 IU/L (<35); Albumin 4.5 g/dL (3.5-5.0); Albumin Globulin Ratio 1.6 (1.0-2.8); Alkaline Phosphatase 44 U/L (38-126); Aspartate Aminotransferase 33 IU/L (14-36); Bilirubin Total 0.6 mg/dL (0.2-1.3); Blood Urea Nitrogen 10 mg/dL (7-17); Calcium 9.5 mg/dL (8.4-10.2); Carbon Dioxide 30 mmol/L (22-32); Chloride 106 mmol/L (98-107); Estimated Glomerular Filt Rate > 60 mL/min (>60); Globulin 2.8 g/dL (1.7-4.1); Glucose 94 mg/dL (70-100); HEMOLYSIS < 15 (0-50); Potassium 4.2 mmol/L (3.4-5.1); Sodium 139 mmol/L (137-145); Total Protein 7.3 g/dL (6.3-8.2)
== END ==
LOC: LAB 16:57
PROVIDERS: PCP Family Medicine; Referring Provider Physician Assistant; Visit Provider Physician Assistant
DX: R19.7 Diarrhea, unspecified (principal); R55 Syncope and collapse
CPT/HCPCS: 36415; 80053; 84443; 85025

== ENCOUNTER → 2024-01-17 09:05 | Outpatient (CLI) | payer OTHER, SELFPAY ==
--- NOTE | 2024-01-17 09:06 | DI.RAD.S_ITS ---
PROCEDURE: XR CHEST 2V INDICATIONS: Cough TECHNIQUE: 2 views of the chest were acquired. COMPARISON: None. FINDINGS: Surgical changes and devices: None. Lungs and pleura: Lungs are clear. No pleural effusions or pneumothorax. Mediastinum: Mediastinal contours are normal. Heart size is normal. Bones and chest wall: No suspicious bony abnormalities. Soft tissues appear unremarkable. IMPRESSION: No acute cardiopulmonary abnormality is seen. Dictated by: Emir Connell M.D. on 01/17/2024 at 9:17 Approved by: Emir Connell M.D. on 01/17/2024 at 9:17
== END ==
PROVIDERS: PCP Family Medicine; Referring Provider Nurse Practitioner Family; Visit Provider Nurse Practitioner Family
DX: R05.9 Cough, unspecified (principal)
CPT/HCPCS: 71046

== ENCOUNTER → 2024-02-03 08:40 | Outpatient (CLI) | payer OTHER, SELFPAY ==
--- NOTE | 2024-02-03 08:41 | DI.RAD.S_ITS ---
PROCEDURE: XR CHEST 2V INDICATIONS: rule out pneumonia - new productive cough TECHNIQUE: 2 views of the chest were acquired. COMPARISON: [facility], CR, XR CHEST 2V, 01/17/2024, 9:06. FINDINGS: Surgical changes and devices: None. Lungs and pleura: No dense consolidation or pleural effusions. Mediastinum: Normal heart size Bones and chest wall: Unremarkable IMPRESSION: No acute radiographic abnormality. Dictated by: Bernardo Beckford M.D. on 02/03/2024 at 11:38 Approved by: Bernardo Beckford M.D. on 02/03/2024 at 11:38
== END ==
PROVIDERS: PCP Family Medicine; Referring Provider Family Medicine; Visit Provider Family Medicine
DX: J18.9 Pneumonia, unspecified organism (principal)
CPT/HCPCS: 71046

== ENCOUNTER 2024-02-08 08:02 | Day surgery (SDC) | payer OTHER, SELFPAY ==
--- NOTE | 2024-02-08 | PATH_ITS ---
[facility] Accession Number: [id number] No. of containers..03 Tissue . 01 Material submitted: . PART A: colon - RIGHT COLON PART B: colon - TRANSVERSE COLON PART C: colon - LEFT COLON . 01 Diagnosis: Part A: RIGHT COLON: Colonic mucosa with no diagnostic alterations. No active inflammation, granulomas, dysplasia, or malignancy identified. . Part B: TRANSVERSE COLON: Colonic mucosa with no diagnostic alterations. No active inflammation, granulomas, dysplasia, or malignancy identified. . Part C: LEFT COLON: Colonic mucosa with slight crypt architectural distortion, compatible with quiescent colitis. No active inflammation, granulomas, dysplasia, or malignancy identified. . Specimen Comments: The histologic changes are minimal in degree and nonspecific, but are compatible with the clinical history of Crohn's disease. [facility] 02/09/2024 [facility]9 Local . 01 Electronically signed: . Emmanuel Lopes MD, Pathologist NPI- [id number] . 01 Gross description: . Part A: RIGHT COLON: Received in formalin are multiple fragment(s) of cox, soft tissue measuring 0.1 x 0.1 x 0.1 cm to 0.4 x 0.4 x 0.2 cm submitted entirely in 1 cassette(s) . Part B: TRANSVERSE COLON: Received in formalin are 4 fragment(s) of cox, soft tissue measuring 0.3 x 0.3 x 0.1 cm to 0.4 x 0.4 x 0.2 cm submitted entirely in 1 cassette(s) . Part C: LEFT COLON: Received in formalin are multiple fragment(s) of cox, soft tissue measuring 0.1 x 0.1 x 0.1 cm to 0.4 x 0.2 x 0.2 cm submitted entirely in 1 cassette(s) /[facility] 02/09/2024 [facility] Local . 01 Pathologist provided ICD-10: K52.9 . 01 CPT . 459575, 616389, 037105 Specimen Comment: A courtesy copy of this report has been sent to [phone] Performed at: [address] [id number] MD Emmanuel Lopes MD Phone: [phone]
[2024-02-08 08:27] VITALS: BP 99/65; PULSE 84; RESP 18; TEMP 36.2; O2SAT 98
--- NOTE | 2024-02-08 08:30 | P.HP_ITS ---
History of Present Illness History of Present Illness Date Patient Seen: 02/08/24 Chief complaint: SDC Narrative: History of colonic Crohn's disease. Need for colorectal cancer screening [facility] Medical History (Updated 09/16/23 @ 11:41 by Charline Weldon PA-C) Cervical myofascial pain syndrome Sinusitis, maxillary, chronic Requests hormone replacement therapy Scoliosis Foot pain (~2018) Ovarian cyst Facet arthropathy, lumbosacral Lumbar spinal stenosis Lumbosacral radiculopathy at L4 Spondylolisthesis at L4-L5 level GI bleeding (1995) Fecal incontinence (1997) Arm fracture (1976) Substance abuse (~2001) Joint ache (2013) Colon polyps Hemorrhoids (1995) IBS (irritable bowel syndrome) (1995) Fibroids (2009) Anemia (1996) Chicken pox (1975) Chronic back pain (~2006) Depression Anxiety Osteoarthritis (2006) Polymyalgia rheumatica Crohn's colitis (1995) Surgical History Status post left hip replacement History of lumbar spinal fusion (~05/2019) Anesthesia History of breast augmentation (06/07/11) History of surgery (1997) Status post colonoscopy (2011) Status post delivery (08/25/09) Family History Brother Healthy adult Father Ankylosing spondylitis Head injury Alcoholism Fall Asthma Grandmother Heart disease Diabetes mellitus Mother Age: 80 High cholesterol Amputated toe Neuropathy Vision changes Diabetes mellitus Grandfather Mental health problem Dementia Grandmother Stroke Smoking Amputation of leg Sister Age: 48 Hx of idiopathic seizure Mental health problem Grandfather Hemochromatosis Social History household members: spouse Smoking Status: Former smoker alcohol intake: never Meds Home Medications and Allergies Home Medications Medication Instructions Recorded Confirmed Type omega 5-jcr-ggt-fish oil 1,000 mg 1,000 mg PO DAILY ##0 05/12/17 02/08/24 History (120 mg-180 mg) capsule (Fish Oil) cholecalciferol (vitamin D3) 50 2,000 unit PO DAILY #90 caps 09/27/17 02/08/24 Rx mcg (2,000 unit) capsule diclofenac sodium 1 % topical gel 2 g topical QID arthritis pain 11/23/18 01/17/24 Rx #100 grams methylphenidate HCl 5 mg tablet 5 mg PO BID PRN ADHD #60 tabs 03/29/23 02/08/24 Rx gabapentin 800 mg tablet 800 mg PO TID #270 tabs 10/31/23 02/08/24 Rx metformin 500 mg tablet 500 mg PO BIDWMEAL #180 tabs 10/31/23 02/08/24 Rx peg 3350-electrolytes 236 240 ml PO Q10M #4,000 mL 12/27/23 01/17/24 Rx gram-22.74 gram-6.74 gram-5.86 gram solution (Golytely) bupropion HCl 200 mg tablet,12 hr See Rx Instructions .Route 01/16/24 02/08/24 Rx sustained-release .COMPLEX #180 tabs benzonatate 200 mg capsule 200 mg PO BID PRN cough #28 caps 01/17/24 02/08/24 Rx Allergies Allergy/AdvReac Type Severity Reaction Status Date / Time No Known Drug Allergies Allergy Verified 02/08/24 08:24 Exam Narrative Exam Narrative: Oropharynx free of lesions Chest clear to auscultation percussion Cardiac exam reveals no S3 or murmur Assessment & Plan Assessment & Plan narrative: History of colonic Crohn's disease at a 20 year interval need for surveillance. Risks, benefits, alternatives have been explained. Time-Based Coding :: [TOTAL MINUTES] spent with patient and on the chart (including review of chart, obtaining history, exam, reviewing outside data, placing orders, documenting exam and treatment plan, and counseling patient) on [DATE].
--- NOTE | 2024-02-08 08:31 | PM.OP.COLON ---
Operative Date/Time/Diagnoses Date of procedure: 02/08/24 Pre-op diagnosis: See indication findings Procedure & Clinicians Study performed: Colonoscopy Indications: History of colonic Crohn's disease need for colonoscopy with biopsies Surgeon: Lena Bowling Procedure Notes Procedure in detail: After informed consent was obtained the patient was placed in left lateral decubitus position. The video colonoscope was introduced the rectum slowly advanced cecum. Preparation was good. On slow withdrawal mucosa was carefully examined. The scope was removed. The patient tolerated procedure well. Blood loss none Complications none Sedation mac Findings 1. Extensive pseudopolyps throughout the colon without any active inflammation. Biopsies taken to every 10 cm and placed in 3 bottles, right, transverse, left colon. Patient will need follow-up colonoscopy in 1-2 years. We will be in touch regarding the biopsies.
[2024-02-08 09:40] VITALS: BP 94/62; PULSE 88; RESP 21; TEMP 36.9; O2SAT 95
[2024-02-08 09:45] VITALS: BP 93/60; PULSE 78; RESP 21; TEMP 36.9; O2SAT 96
[2024-02-08 09:50] VITALS: BP 93/62; PULSE 70; RESP 15; TEMP 36.9; O2SAT 100
== END 2024-02-08 10:07 | disposition home or self-care (01) ==
PROVIDERS: PCP Family Medicine; Referring Provider Internal Medicine Gastroenterology; Visit Provider Internal Medicine Gastroenterology
PROC: 0DJD8ZZ Inspection of Lower Intestinal Tract, Via Natural or Artificial Opening Endoscopic (ICD-10-PCS; CPT 45378; principal; 2024-02-08 09:30)
DX: Z87.19 Personal history of other diseases of the digestive system (principal); K63.5 Polyp of colon
CPT/HCPCS: 45380; 82962; J2704

== ENCOUNTER → 2024-08-14 10:21 | Outpatient (CLI) | payer OTHER, SELFPAY ==
[2024-08-14 10:54] LABS: Mean Corpuscular Hemoglobin 32.4 PG (26-34); Mean Corpuscular Volume 95.3 fL (80-100); Platelet Count 405 X10^3/uL (150-400); Red Blood Cell Count 4.31 X10^6/uL (4.0-5.2); Red Cell Distribution Width 13.4 % (11.6-14.8); White Blood Cell Count 9.1 X10^3/uL (4.5-11.0)
[2024-08-14 11:04] LABS: Alanine Aminotransferase 21 IU/L (<35); Albumin 4.8 g/dL (3.5-5.0); Albumin Globulin Ratio 1.9 (1.0-2.8); Alkaline Phosphatase 54 U/L (38-126); Aspartate Aminotransferase 36 IU/L (14-36); BUN Creatinine Ratio 8.7 (6-22); Bilirubin Total 0.5 mg/dL (0.2-1.3); Blood Urea Nitrogen 10 mg/dL (7-17); Calcium 9.7 mg/dL (8.4-10.2); Carbon Dioxide 26 mmol/L (22-32); Chloride 96 mmol/L (98-107); Estimated Glomerular Filt Rate 57 mL/min (>60); Globulin 2.5 g/dL (1.7-4.1); Glucose 88 mg/dL (70-99); HEMOLYSIS < 15 (0-50); Potassium 4.7 mmol/L (3.4-5.1); Sodium 132 mmol/L (137-145); Total Protein 7.3 g/dL (6.3-8.2)
[2024-08-14 11:21] LABS: Follicle Stimulating Hormone 17.1 mIU/mL; Vitamin D 25 Hydroxy (D3) 102 ng/mL (30.0-100.0)
[2024-08-14 11:37] LABS: Testosterone 387 ng/dL (5.71-77.0)
[2024-08-15 07:09] LABS: Insulin Level Total 4.4 uIU/mL (2.6-24.9)
[2024-08-22 13:11] LABS: Estradiol, Sensitive 66.8 pg/mL (.)
== END ==
PROVIDERS: PCP Family Medicine; Referring Provider Family Medicine; Visit Provider Family Medicine
DX: N92.4 Excessive bleeding in the premenopausal period (principal); R55 Syncope and collapse; R73.09 Other abnormal glucose
CPT/HCPCS: 36415; 80053; 82306; 82627; 82670; 83001; 83525; 84403; 85027

== ENCOUNTER → 2024-09-05 10:59 | Outpatient (CLI) | payer OTHER, SELFPAY ==
[2024-09-05 12:16] LABS: Appearance Urine UA CLEAR; Bilirubin Urine UA NEGATIVE (NEGATIVE); Color Urine UA YELLOW; Glucose Urine UA NEGATIVE (Negative); Ketones Urine UA NEGATIVE (NEGATIVE); Leukocyte Esterase Urine UA NEGATIVE (NEGATIVE); Nitrite Urine UA NEGATIVE (Negative); Occult Blood Urine UA NEGATIVE (Negative); Protein Urine UA NEGATIVE (Negative); Urobilinogen Urine UA 0.2 E.U./dL (0.2); pH Urine UA 7.5 (4.5-8.0)
[2024-09-05 12:31] LABS: Bacteria Urine None Seen; Culture Indicated Urine Cult Not Indicated; RBC Urine None Seen (0-5/HPF); Squamous Epithelial Cell Urine 0-1 /HPF (0-5/HPF); Urine Volume 10mL (spun); WBC Urine None Seen (0-5/HPF)
[2024-09-05 12:36] LABS: BUN Creatinine Ratio 15.1 (6-22); Blood Urea Nitrogen 13 mg/dL (7-17); Calcium 9.8 mg/dL (8.4-10.2); Carbon Dioxide 26 mmol/L (22-32); Chloride 98 mmol/L (98-107); Estimated Glomerular Filt Rate > 60 mL/min (>60); Glucose 94 mg/dL (70-99); HEMOLYSIS < 15 (0-50); Potassium 4.6 mmol/L (3.4-5.1); Sodium 132 mmol/L (137-145)
== END ==
LOC: LAB 11:00
PROVIDERS: PCP Family Medicine; Referring Provider Family Medicine; Visit Provider Family Medicine
DX: R94.4 Abnormal results of kidney function studies (principal)
CPT/HCPCS: 36415; 80048; 81001; 82610

== ENCOUNTER → 2024-12-20 08:05 | Outpatient (CLI) | payer OTHER, SELFPAY ==
--- NOTE | 2024-12-20 08:06 | DI.RAD.S_ITS ---
PROCEDURE: XR KNEE LT 3V INDICATIONS: Knee pain, Fall TECHNIQUE: 3 views of the knee were acquired. COMPARISON: None. FINDINGS: Bones: There are no fracture or other osseous abnormalities. Joints: Minimal degenerative change medial tibial femoral and patellofemoral joint. Small posttraumatic effusion Soft tissues: Normal IMPRESSION: No fracture . Small posttraumatic effusion Minimal degeneration . Dictated by: Jean Carlos Lerma M.D. on 12/21/2024 at 10:52 Approved by: Jean Carlos Lerma M.D. on 12/21/2024 at 10:53
== END ==
PROVIDERS: PCP Family Medicine; Referring Provider Family Medicine; Visit Provider Family Medicine
DX: M25.562 Pain in left knee (principal); M25.462 Effusion, left knee
CPT/HCPCS: 73562

== ENCOUNTER 2025-01-05 11:33 | Emergency (ER) | payer OTHER, SELFPAY ==
[2025-01-05] VITALS (10 sets, daily range): BP systolic 80–128; BP diastolic 51–79; PULSE 57–69; RESP 16; TEMP 36.8; O2SAT 96–100; BMI 24.0
--- NOTE | 2025-01-05 11:45 | DI.RAD.S_ITS ---
PROCEDURE: XR HIP LT 1V INDICATIONS: L hip pain TECHNIQUE: Single views of the hip were acquired. COMPARISON: [facility], CR, XR HIP W PEL IF DONE LT 2V, 07/10/2022, 18:39. FINDINGS: Bones: Total left hip arthroplasty noted with malalignment of the femoral head and acetabular components Soft tissues: No suspicious soft tissue calcifications or masses. IMPRESSION: Malaligned left hip arthroplasty may reflect posterior dislocation. Consider additional views for confirmation. Approved by: Candido Austin M.D. on 01/05/2025 at 11:40
--- NOTE | 2025-01-05 11:52 | ED_ITS ---
HPI - Extremity Injury (Lower) General Chief Complaint: Extremity Injury, Lower Stated Complaint: Dislocated hip Time Seen by Provider: 01/05/25 11:51 Source: patient and EMS Mode of arrival: EMS History of Present Illness HPI Narrative: Patient is a 54-year-old female history of Crohn's disease presents today with a left hip dislocation. She had a total hip arthroplasty number of years ago. She says it has dislocated a couple of times sometimes she is able to put it back herself. She is working very hard with physical therapy but she has been doing a lot of strength training she has not had it dislocate in some time. She was feeling [place] and went to yoga and felt it dislocate. No other injury. Related Data Home Medications ?Medication ?Instructions ?Recorded ?Confirmed omega 3-lux-iou-fish oil 1,000 mg 1,000 mg PO DAILY ## 0 05/12/17 12/20/24 (120 mg-180 mg) capsule (Fish Oil) Previous Rx's ?Medication ?Instructions ?Recorded cholecalciferol (vitamin D3) 50 2,000 unit PO DAILY #9 0 caps 09/27/17 mcg (2,000 unit) capsule bupropion HCl 200 mg tablet,12 hr See Rx Instructions .Route 04/12/24 sustained-release .COMPLEX #180 tabs metformin 500 mg tablet 500 mg PO BIDWMEAL #180 tabs 07/17/24 testosterone 1 % (25 mg/2.5 gram) 0.25 packet transder mal DAILY #75 07/17/24 transdermal gel packet grams gabapentin 800 mg tablet 800 mg PO TID #270 tabs 08/20 08/12 Allergies Allergy/AdvReac Type Severity Reaction Status Date / Time No Known Drug Allergies Allergy Verified 01/05/25 11:37 Patient History Medical History (Updated 01/05/25 @ 13:43 by Evy Balbuena DO) Cervical myofascial pain syndrome Sinusitis, maxillary, chronic Requests hormone replacement therapy Scoliosis Foot pain (~2018) Ovarian cyst Facet arthropathy, lumbosacral Lumbar spinal stenosis Lumbosacral radiculopathy at L4 Spondylolisthesis at L4-L5 level GI bleeding (1995) Fecal incontinence (1997) Arm fracture (1976) Substance abuse (~2001) Joint ache (2013) Colon polyps Hemorrhoids (1995) IBS (irritable bowel syndrome) (1995) Fibroids (2009) Anemia (1996) Chicken pox (1975) Chronic back pain (~2006) Depression Anxiety Osteoarthritis (2006) Polymyalgia rheumatica Crohn's colitis (1995) Surgical History Status post left hip replacement History of lumbar spinal fusion (~05/2019) Anesthesia History of breast augmentation (06/07/11) History of surgery (1997) Status post colonoscopy (2011) Status post delivery (08/25/09) Family History Brother Healthy adult Father Ankylosing spondylitis Head injury Alcoholism Fall Asthma Grandmother Heart disease Diabetes mellitus Mother Age: 80 High cholesterol Amputated toe Neuropathy Vision changes Diabetes mellitus Grandfather Mental health problem Dementia Grandmother Stroke Smoking Amputation of leg Sister Age: 48 Hx of idiopathic seizure Mental health problem Grandfather Hemochromatosis Social History (Updated 11/01/24 @ 10:29 by Juan Rapp MA) marital status: number of children: 1 household members: spouse and children occupational status: employed Smoking Status: Never smoker alcohol intake: never Smoking Status: Never smoker Exam Initial Vital Signs Initial Vital Signs: Vital Signs Temperature 98.3 F 01/05/25 11:37 Pulse Rate 61 01/05/25 11:37 Respiratory Rate 16 01/05/25 11:37 Blood Pressure 128/79 01/05/25 11:37 Pulse Oximetry 100 01/05/25 11:37 Oxygen Delivery Method Room Air 01/05/25 11:37 GENERAL: Alert well-appearing 54-year-old female and in no acute distress. HEENT: Head atraumatic,EOMI, pupils reactive, face symmetric, moist mucous membranes CARDIOVASCULAR: Regular rate and rhythm without murmurs, rubs or gallops. RESPIRATORY: Breath sounds equal bilaterally, no wheezes rales or rhonchi. EXTREMITIES: Normal range of motion, no clubbing or edema. Neurovascularly intact Left hip tender both knees are flexed distal pedal pulse intact NEUROLOGICAL: Alert and oriented x4. SKIN: Warm, dry, no laceration, no petechiae, no rashes or lesions. Procedures Orthopedic Joint Reduction Joint #1: Side: left Joint Reduction Location: hip Analgesia: procedural sedation Technique used: direct manipulation Post-reduction neuro exam: intact Post-reduction vascular: intact Post Reduction X-Ray Obtained: Yes Post Reduction X-Ray Results: reduced Splint Applied: Yes Patient Tolerated Procedure: Well and No complications Orthopedic Splinting/Casting Injury #1: Side: left Lower Extremity Injury Location: upper leg (hip dislocation) Lower Extremity Immobilizer: knee immobilizer Post splinting neuro exam: intact Post splinting vascular exam: intact Placed by: Nursing Procedural Sedation Time of procedure: 13:00 Consent signed: Yes Time out performed: Yes Indication: fracture/dislocation reduction ASA Class: I Mallampati Airway Classification: Class I IV Propofol dose (mg): 70 Intraservice time/total sedation time (min): 13 ED Sedation Level: Moderate (Concious) Patient Tolerated Procedure: No complications Complications: none Course Orders Ordered: ED Orders 01/05/25 11:45 XR pelvis 1-2V Stat 01/05/25 13:10 XR hip w pel LT 2V Stat Discontinued Medications Hydromorphone HCl (Hydromorphone Hcl 0.5 Mg/0.5 Ml Syringe) 0.5 mg IV NOW ONE Stop: 01/05/25 12:19 Last Admin: 01/05/25 12:27 Dose: 0.5 mg Documented By: SBF Propofol (Propofol 200 Mg/20 Ml Vial) 70 mg 1 mg/kg (70 mg) IV NOW ONE Stop: 01/05/25 12:19 Last Admin: 01/05/25 13:18 Dose: 70 mg Documented By: SGF Vital Signs Vital signs: Vital Signs - 8 hr 01/05/25 11:37 01/05/25 11:37 01/05/25 11:38 Temperature 98.3 F Pulse Rate 61 64 Respiratory Rate 16 Blood Pressure 128/79 128/79 Pulse Oximetry 100 100 Oxygen Delivery Method Room Air 01/05/25 11:38 01/05/25 12:00 01/05/25 12:00 Temperature Pulse Rate 69 67 Respiratory Rate Blood Pressure 107/67 Pulse Oximetry 100 98 Oxygen Delivery Method 01/05/25 12:30 01/05/25 12:30 01/05/25 13:00 Temperature Pulse Rate 58 L 61 Respiratory Rate Blood Pressure 119/75 Pulse Oximetry 99 98 Oxygen Delivery Method 01/05/25 13:00 01/05/25 13:05 01/05/25 13:12 Temperature Pulse Rate 64 Respiratory Rate 16 Blood Pressure 113/68 113/68 105/63 Pulse Oximetry 100 Oxygen Delivery Method 01/05/25 13:12 01/05/25 13:15 01/05/25 13:15 Temperature Pulse Rate 60 57 L Respiratory Rate Blood Pressure 80/51 L Pulse Oximetry 100 100 Oxygen Delivery Method 01/05/25 13:17 01/05/25 13:17 01/05/25 13:30 Temperature Pulse Rate 59 L Respiratory Rate Blood Pressure 100/61 107/65 Pulse Oximetry 99 Oxygen Delivery Method 01/05/25 13:30 Temperature Pulse Rate 57 L Respiratory Rate Blood Pressure Pulse Oximetry 96 Oxygen Delivery Method MDM - Extremity Injury (Lower) Lab Data Labs: Point of Care Testing Test Results Negative Imaging Data Extremity x-ray #1: Radiologist's Impression: PROCEDURE: XR HIP LT 1V INDICATIONS: L hip pain TECHNIQUE: Single views of the hip were acquired. COMPARISON: [facility], , XR HIP W PEL IF DONE LT 2V, 07/10/2022, 18:39. FINDINGS: Bones: Total left hip arthroplasty noted with malalignment of the femoral head and acetabular components Soft tissues: No suspicious soft tissue calcifications or masses. IMPRESSION: Malaligned left hip arthroplasty may reflect posterior dislocation. Consider additional views for confirmation. Approved by: Candido Austin M.D. on 01/05/2025 at 11:40 Extremity x-ray #2: Radiologist's Impression: PROCEDURE: XR HIP W PEL IF DONE LT 2V INDICATIONS: post reduction TECHNIQUE: Single views of the hip were acquired. COMPARISON: [facility], , XR HIP LT 1V, 01/05/2025, 11:45. [facility], XR HIP W PEL IF DONE LT 2V, 07/10/2022, 18:39. FINDINGS: Bones: No fractures or dislocations. No suspicious bony lesions. The visualized pelvic ring appears intact. Soft tissues: Lower lumbar spine instrumented discectomy and fusion with decompression and midline intrauterine device noted. IMPRESSION: Perfect anatomic alignment of left hip arthroplasty. No fracture. Approved by: Candido Austin M.D. on 01/05/2025 at 12:37 MDM Narrative Medical decision making narrative: Patient 54-year-old female with history of total left hip arthroplasty presents today with hip dislocation during yoga. She had a procedure sedation with propofol and easily reduced. Repeat x-ray confirms reduction. She is placed in a knee immobilizer. She is well aware of things she is not supposed to be doing and understands we went over this with the as well. Imaging has been reviewed Still pelvis x-ray showed malaligned hip arthroplasty reflecting posterior dislocated Hip x-ray perfect anatomic alignment of left hip arthroplasty no fracture Discharge Plan Departure Patient Disposition: Home Clinical Impression: Dislocation of left hip Instructions: DI for Hip Dislocation -- Adult Activity Restrictions/Additional Instructions: *You have been diagnosed with left hip dislocation *What to do: Expect to be sore * Hip precautions: * Avoid crossing your legs. * Do not bend forward more than 90 degrees. * Use a pillow between your legs at night to prevent accidental crossing. * Keep your toes pointing forward when walking or sitting. * Sit with your hip joint above your knees. *Continue to take medications as directed Motrin Tylenol as needed for pain *Follow up with your primary care provider in 2-3 days or call [phone] *Return to ER if you should have any new, worsening or concerning symptoms Prescriptions: No Action omega 8-zir-rwq-fish oil [Fish Oil] 1,000 MG capsule 1,000 mg PO DAILY Qty: 0 bupropion HCl 200 mg tablet sustained-release 12 hr See Rx Instructions .ROUTE .COMPLEX Qty: 180 2RF Dose Instruction: take 1 tablet by mouth twice a day Rx Instructions: take 1 tablet by mouth twice a day gabapentin 800 mg tablet 800 mg PO TID Qty: 270 1RF cholecalciferol (vitamin D3) 2,000 unit capsule 2,000 unit PO DAILY Qty: 90 0RF Rx Instructions: OTC metformin 500 mg tablet 500 mg PO BIDWMEAL Qty: 180 1RF Patient Comments: taking for crohns-has not started taking as of 09/29/22 testosterone 1 % (25 mg/2.5gram) gel in packet 0.25 packet transdermal DAILY Qty: 75 0RF Referrals: Danika Francis DO [Primary Care Provider, Medical] Stand Alone Forms: Patient Portal/API
--- NOTE | 2025-01-05 13:10 | DI.RAD.S_ITS ---
PROCEDURE: XR HIP W PEL IF DONE LT 2V INDICATIONS: post reduction TECHNIQUE: Single views of the hip were acquired. COMPARISON: [facility], CR, XR HIP LT 1V, 01/05/2025, 11:45. [facility], CR, XR HIP W PEL IF DONE LT 2V, 07/10/2022, 18:39. FINDINGS: Bones: No fractures or dislocations. No suspicious bony lesions. The visualized pelvic ring appears intact. Soft tissues: Lower lumbar spine instrumented discectomy and fusion with decompression and midline intrauterine device noted. IMPRESSION: Perfect anatomic alignment of left hip arthroplasty. No fracture. Approved by: Candido Austin M.D. on 01/05/2025 at 12:37
== END 2025-01-05 13:59 | disposition home or self-care (01) ==
PROVIDERS: Emergency Provider Emergency Medicine; PCP Family Medicine
DX: S73.005A Unspecified dislocation of left hip, initial encounter (principal); Z96.643 Presence of artificial hip joint, bilateral
CPT/HCPCS: 27265; 72170; 73502; 96374; 99152; 99284; J1171; J2704

== ENCOUNTER 2025-01-26 13:09 | Emergency (ER) | payer OTHER, SELFPAY ==
[2025-01-26] VITALS (27 sets, daily range): BP systolic 107–137; BP diastolic 58–82; PULSE 64–84; RESP 14–25; TEMP 37.2; O2SAT 95–100; BMI 22.4
--- NOTE | 2025-01-26 13:28 | DI.RAD.S_ITS ---
PROCEDURE: XR HIP W PEL IF DONE LT 2V
[2025-01-26] MEDS: ONDANSETRON 4 MG/2 ML INJ IV (15:08)
--- NOTE | 2025-01-26 16:09 | DI.RAD.S_ITS ---
PROCEDURE: XR HIP W PEL IF DONE LT 2V
--- NOTE | 2025-01-26 16:31 | ED_ITS ---
HPI - Extremity Injury (Lower)
--- NOTE | 2025-01-26 16:31 | ED.LOWEXIN ---
HPI - Extremity Injury (Lower) General Chief Complaint: Extremity Injury, Lower Stated Complaint: popped hip out of socket Time Seen by Provider: 01/26/25 13:14 History of Present Illness HPI Narrative: 54-year-old female history of Crohn's disease presents with left hip dislocation after having it dislocated back on 01/05/2025. She had a total hip arthroplasty number years ago and states he has been dislocated number times but she was able to put it back but the last 2 in times including today she was not able to. Other than what is stated 14 point review of system is negative. Related Data Home Medications ?Medication ?Instructions ?Recorded ?Confirmed omega 3-fxs-kof-fish oil 1,000 mg 1,000 mg PO DAILY ##0 05/12/17 01/10/25 (120 mg-180 mg) capsule (Fish Oil) Previous Rx's ?Medication ?Instructions ?Recorded cholecalciferol (vitamin D3) 50 2,000 unit PO DAILY #90 caps 09/27/17 mcg (2,000 unit) capsule testosterone 1 % (25 mg/2.5 gram) 0.25 packet transdermal DAILY #75 07/17/24 transdermal gel packet grams bupropion HCl 200 mg tablet,12 hr See Rx Instructions .Route 01/10/25 sustained-release .COMPLEX #180 tabs gabapentin 800 mg tablet 800 mg PO TID #270 tabs 01/10/25 mesalamine 4 gram/60 mL enema 4 g (60 mL) [place] BEDTIME #1,680 mL 01/10/25 metformin 500 mg tablet 500 mg PO BIDWMEAL #180 tabs 01/10/25 Allergies Allergy/AdvReac Type Severity Reaction Status Date / Time No Known Drug Allergies Allergy Verified 01/05/25 11:37 Review of Systems Review of Systems ROS Unobtainable: All systems reviewed & are unremarkable except as noted in HPI and below Patient History Medical History (Updated 01/26/25 @ 16:45 by Jean Carlos Sanchez DO) BPPV (benign paroxysmal positional vertigo) Osteoarthritis of carpometacarpal (CMC) joint of right thumb (12/01/15) Osteoarthritis of carpometacarpal (CMC) joint of left thumb (12/01/15) Fibromyalgia (01/21/16) Pre-menstrual mood disorder Perimenopausal menorrhagia Cervical stenosis of spine Hemorrhoids Moderate alcohol use disorder, in sustained remission (07/30/15) Scoliosis Fibroids, subserous Vaso-vagal reaction Cervical myofascial pain syndrome Sinusitis, maxillary, chronic Ovarian cyst Facet arthropathy, lumbosacral Lumbar spinal stenosis Lumbosacral radiculopathy at L4 Spondylolisthesis at L4-L5 level GI bleeding (1995) Fecal incontinence (1997) Arm fracture (1976) Substance abuse (~2001) Joint ache (2013) Colon polyps Hemorrhoids (1995) IBS (irritable bowel syndrome) (1995) Fibroids (2009) Anemia (1996) Chicken pox (1975) Chronic back pain (~2006) Depression Anxiety Osteoarthritis (2006) Polymyalgia rheumatica Crohn's colitis (1995) Surgical History Status post left hip replacement History of lumbar spinal fusion (~05/2019) Anesthesia History of breast augmentation (06/07/11) History of surgery (1997) Status post colonoscopy (2011) Status post delivery (08/25/09) Family History Brother Healthy adult Father Ankylosing spondylitis Head injury Alcoholism Fall Asthma Grandmother Heart disease Diabetes mellitus Mother Age: 80 High cholesterol Amputated toe Neuropathy Vision changes Diabetes mellitus Grandfather Mental health problem Dementia Grandmother Stroke Smoking Amputation of leg Sister Age: 48 Hx of idiopathic seizure Mental health problem Grandfather Hemochromatosis Social History (Updated 11/01/24 @ 10:29 by Juan Rapp MA) marital status: number of children: 1 household members: spouse and children occupational status: employed alcohol intake: never Exam Narrative Exam Narrative: GENERAL: [54] year old patient appears stated age. Well-developed patient, in mild distress. HEAD: Atraumatic. Normocephalic. EYES: Pupils equal round and reactive. Extraocular motions intact. No scleral icterus. No injection or drainage. EXTREMITIES: No edema or joint tenderness. Left hip shortened and internally rotated motor sensory intact +2 DP +2 PT cap refill less than 2 seconds BACK: Nontender without deformity or crepitance. No flank tenderness. NEURO: AOx3. SKIN: No rash or erythema of visible areas Initial Vital Signs Initial Vital Signs: Vital Signs Pulse Rate 83 01/26/25 13:19 Blood Pressure 137/80 01/26/25 13:19 Pulse Oximetry 99 01/26/25 13:19 Procedures Orthopedic Joint Reduction Joint #1: Time of procedure: 16:35 Time Out Performed: Yes Side: left Joint Reduction Location: hip Analgesia: procedural sedation Shoulder Technique Used (if applicable): traction/counter-traction Post-reduction neuro exam: intact Post-reduction vascular: intact Post Reduction X-Ray Obtained: Yes Post Reduction X-Ray Results: reduced Splint Applied: No Patient Tolerated Procedure: Well Course Orders Ordered: ED Orders 01/26/25 13:28 XR hip w pel LT 2V Stat 01/26/25 16:09 XR hip w pel LT 2V Stat Discontinued Medications Hydrocodone Bitart/Acetaminophen (Hydrocodone/Acet 5/325 Tablet) 1 tab PO NOW ONE Stop: 01/26/25 13:31 Last Admin: 01/26/25 13:34 Dose: 1 tab Documented By: KAVON Hydromorphone HCl (Hydromorphone Hcl 0.5 Mg/0.5 Ml Syringe) 0.5 mg IV NOW ONE Stop: 01/26/25 14:43 Last Admin: 01/26/25 15:08 Dose: 0.5 mg Documented By: KAVON Ondansetron HCl (Ondansetron 4 Mg/2 Ml Inj) 4 mg IV NOW ONE Stop: 01/26/25 14:43 Last Admin: 01/26/25 15:08 Dose: 4 mg Documented By: KAVON Propofol (Propofol 200 Mg/20 Ml Vial) 130 mg 2 mg/kg (130 mg) IV NOW ONE Stop: 01/26/25 14:04 Last Admin: 01/26/25 16:22 Dose: 100 mg Vital Signs Vital signs: Vital Signs - 8 hr 01/26/25 13:19 01/26/25 13:19 01/26/25 13:22 Temperature 98.9 F Pulse Rate 83 84 Respiratory Rate 16 Blood Pressure 137/80 137/80 Pulse Oximetry 99 97 Oxygen Delivery Method Room Air 01/26/25 13:30 01/26/25 13:30 01/26/25 14:00 Temperature Pulse Rate 76 72 Respiratory Rate Blood Pressure 120/62 Pulse Oximetry 100 97 Oxygen Delivery Method 01/26/25 14:00 01/26/25 14:30 01/26/25 15:00 Temperature Pulse Rate 69 66 Respiratory Rate 23 Blood Pressure 115/63 Pulse Oximetry 96 95 Oxygen Delivery Method 01/26/25 15:05 01/26/25 15:10 01/26/25 15:15 Temperature Pulse Rate 69 67 65 Respiratory Rate 20 19 Blood Pressure Pulse Oximetry 97 97 97 Oxygen Delivery Method 01/26/25 15:20 01/26/25 15:25 01/26/25 15:30 Temperature Pulse Rate 69 65 67 Respiratory Rate 19 22 21 Blood Pressure Pulse Oximetry 97 97 98 Oxygen Delivery Method 01/26/25 15:35 01/26/25 15:40 01/26/25 15:45 Temperature Pulse Rate 68 65 65 Respiratory Rate 25 H 20 Blood Pressure Pulse Oximetry 98 96 96 Oxygen Delivery Method 01/26/25 15:50 01/26/25 15:55 01/26/25 16:00 Temperature Pulse Rate 65 65 Respiratory Rate 22 22 Blood Pressure 115/70 Pulse Oximetry 97 96 Oxygen Delivery Method 01/26/25 16:00 01/26/25 16:05 01/26/25 16:05 Temperature Pulse Rate 64 67 Respiratory Rate 18 Blood Pressure 111/66 Pulse Oximetry 97 99 Oxygen Delivery Method 01/26/25 16:10 01/26/25 16:10 01/26/25 16:15 Temperature Pulse Rate 65 68 Respiratory Rate 19 Blood Pressure 107/66 Pulse Oximetry 98 98 Oxygen Delivery Method Room Air 01/26/25 16:15 01/26/25 16:20 Temperature Pulse Rate 68 Respiratory Rate 14 Blood Pressure 108/58 L 112/68 Pulse Oximetry 97 Oxygen Delivery Method MDM - Extremity Injury (Lower) Imaging Data Extremity x-ray #1: Radiologist's Impression: [address] [address] XRay Report Signed Patient: Carisa Long MR#: [id number] : 1970 Acct:[id number] Age/Sex: 54 / F Date of Service: 01/26/25 Loc: ED Accession Number: [id number] Procedure: XR hip w pel LT 2V Ordering Provider: Landy Moreau PA-C PROCEDURE: XR HIP W PEL IF DONE LT 2V INDICATIONS: dislocation TECHNIQUE: 2 view(s) of the hip acquired. [facility], 13:07. [facility], CR, XR HIP W PEL IF DONE LT 2V, 07/10/2022, 18:39. FINDINGS: Bones: Patient is status post left hip arthroplasty. There is anterior lateral dislocation of the femoral head component from the acetabular component, however hardware components are in the expected location relative to the bone. There is no periprosthetic fracture. No lucency is present about the hardware. Soft tissues: An IUD overlies the pelvis. Otherwise normal. IMPRESSION: Femoroacetabular dislocation of arthroplasty hardware. Extremity x-ray #2: Radiologist's Impression: [address] [address] XRay Report Signed Patient: Carisa Long MR#: [id number] : 1970 Acct:[id number] Age/Sex: 54 / F Date of Service: 01/26/25 Loc: ED Accession Number: [id number] Procedure: XR hip w pel LT 2V Ordering Provider: Landy Moreau PA-C PROCEDURE: XR HIP W PEL IF DONE LT 2V INDICATIONS: post reduction TECHNIQUE: AP pelvis and lateral view of the hip acquired. COMPARISON: [facility], CR, XR HIP W PEL LT 2V, 01/26/2025, 13:28. [facility], CR, XR HIP W PEL LT 2V, 01/05/2025, 13:07. FINDINGS/IMPRESSION: There has been interval reduction of the femoroacetabular dislocation with resultant anatomic alignment and no evidence of periprosthetic fracture. Dictated by: Anastasiya Subramanian M.D. on 01/26/2025 at 15:44 Approved by: Anastasiya Subramanian M.D. on 01/26/2025 at 15:45 MDM Narrative Medical decision making narrative: All lab work, vital signs, nurse triage note, medication list, previous ER visits, and all imaging studies reviewed. X-ray showed femoroacetabular dislocation of arthroplasty hardware. Time-out performed procedural sedation with the respiratory therapist present for which 100 mg of propofol given and repeat hip x-ray shows dislocation reduced. Patient will follow up with PCP regarding next steps for orthopedic referral. Airway assessed prior to start of procedure? [Y] Procedural Sedation Time of Procedure: [405] Consent Signed: [Y] ASA Class: [II] Mallampati Airway Classification: [II] Time Out Performed: [Y] Indication: [L hip dislocation Preparation: [yes] Bedside and IV Secured: [Y] Fentanyl Dose (mcg): [] IV Propofol Dose (mg): [100] ED Sedation Level: [moderate] Patient Tolerated Procedure: [well] Complications: [none] Discharge Plan Departure Patient Disposition: Home Clinical Impression: Dislocation, hip closed Qualifiers: Encounter type: subsequent encounter Laterality: left Qualified Code(s): S73.005D - Unspecified dislocation of left hip, subsequent encounter Instructions: DI for Hip Dislocation -- Adult Activity Restrictions/Additional Instructions: Return with new or worsening symptoms. Follow up with Dr. Lazara Francis regarding options for orthopedic referral Prescriptions: No Action omega 8-grh-tcc-fish oil [Fish Oil] 1,000 MG capsule 1,000 mg PO DAILY Qty: 0 cholecalciferol (vitamin D3) 2,000 unit capsule 2,000 unit PO DAILY Qty: 90 0RF Rx Instructions: OTC testosterone 1 % (25 mg/2.5gram) gel in packet 0.25 packet transdermal DAILY Qty: 75 0RF mesalamine 4 gram/60 mL enema 4 g [place] BEDTIME Qty: 1680 3RF bupropion HCl 200 mg tablet sustained-release 12 hr See Rx Instructions .ROUTE .COMPLEX Qty: 180 3RF Dose Instruction: take 1 tablet by mouth twice a day Rx Instructions: take 1 tablet by mouth twice a day gabapentin 800 mg tablet 800 mg PO TID Qty: 270 3RF metformin 500 mg tablet 500 mg PO BIDWMEAL Qty: 180 3RF Patient Comments: taking for crohns-has not started taking as of 09/29/22 Referrals: Danika Francis DO [Primary Care Provider, Medical] Stand Alone Forms: Patient Portal/API
--- NOTE | 2025-01-26 16:42 | RT ---
Called to ER8 for PRS for Hip reduction. Bag mask unit at [facility] with suction. Pt on 2 lpm nc etco2 33. Pt mikayla well, bagged for 15 sec post procedure. Pt on room air, and alert. Released by RN, at bedside
--- NOTE | 2025-01-26 16:50 | PC.NURSE ---
This RNs first interaction with patient, reviewed d/c instructions.
== END 2025-01-26 16:54 | disposition home or self-care (01) ==
PROVIDERS: Emergency Provider Family Medicine; PCP Family Medicine
DX: T84.021D Dislocation of internal left hip prosthesis, subsequent encounter (principal); Z96.642 Presence of left artificial hip joint
CPT/HCPCS: 27265; 73502; 96374; 96375; 99284; J1171; J2405; J2704

== ENCOUNTER → 2025-03-11 11:33 | Outpatient (CLI) | payer OTHER, SELFPAY ==
--- NOTE | 2025-03-11 11:34 | DI.MG.S_ITS ---
MM screening mammo implant BI: 03/11/2025. BI-RADS: 1 CLINICAL: 55-year old female for bilateral screening mammogram. Tyrer-Cuzick lifetime risk of 9.7%. No personal or first-degree family history of breast cancer. The patient has bilateral implants. The patient had a prior left breast biopsy. The patient had a mastopexy in both breasts. PRIOR EXAMS 04/17/2022, 05/16/2015. MAMMOGRAPHY TECHNIQUE: 2D and 3D (tomosynthesis) digital mammographic views obtained, with additional images as needed for full coverage. Current study was also evaluated with a Computer Aided Detection (CAD) system. DENSITY B. There are scattered areas of fibroglandular density. IMPLANTS Breast implants present. MAMMOGRAPHY FINDINGS Bilateral: No suspicious mass, asymmetry, microcalcification, or other abnormality seen. IMPRESSION: * No evidence of malignancy. RECOMMENDATIONS Bilateral * Annual screening mammography. OVERALL ASSESSMENT CATEGORY BI-RADS-1: Negative. The [employer] recommends annual screening mammography beginning at age 40 for women with average risk of breast cancer. ELECTRONICALLY SIGNED: Janine Buitrago M.D. on 03/15/2025 at 01:09:08 PM PT Interpreting Station ID: [id number]
== END ==
LOC: MAMMO 11:34
PROVIDERS: PCP Family Medicine; Referring Provider Family Medicine; Visit Provider Family Medicine
DX: Z12.31 Encounter for screening mammogram for malignant neoplasm of breast (principal); Z98.82 Breast implant status
CPT/HCPCS: 77063; 77067